=== PATIENT | female | born 1960 | race Caucasian/White ===

== ENCOUNTER 2019-08-17 12:12 | Inpatient (IN) ==
[2019-08-17 12:57] LABS: Basophils # (auto) 0.03 K/uL (0-0.2); Basophils % (auto) 0.4 %; Eosinophils # (auto) 0.17 K/uL (0-0.5); Eosinophils % (auto) 2.1 %; Hematocrit (blood only) 59.2 % (37-47); Hemoglobin 20.5 g/dL (12.0-16.0); Immature Granulocytes # (auto) 0.01 K/uL (0.00-0.02); Immature Granulocytes % (auto) 0.1 %; Lymphocytes # (auto) 2.18 K/uL (1.2-3.4); Lymphocytes % (auto) 26.7 %; Mean Corpuscular Hemoglobin 32.9 pg (25-34); Mean Platelet Volume 10.8 fL (7.4-10.4); Monocytes # (auto) 0.64 K/uL (0.11-0.59); Monocytes % (auto) 7.8 %; Neutrophils # (auto) 5.14 K/uL (1.4-6.5); Neutrophils % (auto) 62.9 %; Platelet Count 201 K/uL (130-400); RDW Coefficient of Variation 14.2 % (11.5-14.5); RDW Standard Deviation 49.2 fL (36.4-46.3); Red Blood Count 6.23 M/uL (4.2-5.4); White Blood Count 8.17 K/uL (4.8-10.8)
[2019-08-17] MEDS ORDERED: OPTIRAY 320 125ml IV PRN (12:57)
[2019-08-17 12:59] LABS: Mean Corpuscular Hgb Conc 34.6 g/dL (32-36)
--- NOTE | 2019-08-17 13:01 | CT Scan Report ---
CT head/brain wo con CLINICAL HISTORY: New stroke symptoms. RIGHT-SIDED WEAKNESS COMPARISON STUDY: MRI the brain dated 09/04/2015 TECHNIQUE: Axial CT of the brain is performed from the vertex to the skull base. IV contrast was not administered for this examination. A dose lowering technique was utilized adhering to the principles of ALARA. CT DOSE: 537.48 mGy.cm FINDINGS: No intra or extra-axial mass lesions are visualized. There is no CT evidence of acute cortical infarc tion. There is no evidence of midline shift. There is no acute hemorrhage. No calvarial fractures ar e visualized. There are old infarcts in the right caudate, anterior right thalamus, and right periventricular deep white matter. The right caudate and right anterior thalamic infarcts were not present in 2014 There is no evidence of pathologic ventricular dilatation. There is left maxillary sinus mucosal thickening. IMPRESSION: 1. Old infarcts involving the right caudate, right anterior thalamus, and right periventricular deep white matter. 2. No acute intracranial findings Electronically signed by: Devon Connolly M.D. 08/17/2019 12:59 PM
[2019-08-17 13:05] LABS: Alanine Aminotransferase 35 U/L (12-78); Albumin Level 3.9 gm/dl (3.4-5.0); Aspartate Aminotransferase 12 U/L (15-37); BUN Creatinine Ratio 13.6 (10-20); Blood Urea Nitrogen 9 mg/dl (7-18); Calcium 9.4 mg/dl (8.5-10.1); Carbon Dioxide 26 mmol/L (21-32); Chloride 105 mmol/L (98-107); Creatinine Clr Calc Pharmacy 86.7 ml/min; Est GFR (African American) 112.6; Est GFR (Non-African American) 97.2; Glucose 108 mg/dl (70-99); Magnesium 1.9 mg/dl (1.8-2.4); Sodium 138 mmol/L (136-145)
--- NOTE | 2019-08-17 13:08 | CT Scan Report ---
CT angio neck with con CLINICAL HISTORY: R sided weakness COMPARISON STUDY: MR angiography the neck performed August 2015 TECHNIQUE: CT angiography was performed from the aortic arch to the skull base. MIP imaging was perfo rmed. The patient was scanned in a dynamic helical fashion during intravenous administration of 119 c c of Optiray 320. A dose lowering technique was utilized adhering to the principles of ALARA. CT DOSE: 499.09 mGy.cm Technique: CT angiogram of the carotid and vertebral arteries was obtained using intravenous contrast and 3-D reconstruction. NASCET criteria was utilized. Findings: There is apical pulmonary emphysema. There is atheromatous plaque at the level of the right carotid bulb and proximal right internal carot id artery. There is a less than 25% stenosis. No hemodynamically significant stenosis is visualized. There is no dissection. There is no aneurysm. There are atheromatous changes present at the left carotid bulb and proximal internal carotid artery. There is a 40% proximal left internal carotid artery stenosis. There is a 50% diameter stenosis in the proximal left subclavian artery. There is no evidence of hemo dynamically significant vertebral artery stenosis. There is no evidence of vertebral artery dissectio n. IMPRESSION: Moderate bilateral atheromatous changes. No evidence of hemodynamically significant carotid stenosis. Electronically signed by: Devon Connolly M.D. 08/17/2019 1:06 PM
[2019-08-17 13:09] LABS: Albumin Globulin Ratio 1.1 (0.9-2); Alkaline Phosphatase 93 U/L (45-117); Bilirubin,Total 0.7 mg/dl (0.2-1); Globulin 3.6 gm/dl (2.5-4.0); Total Protein 7.5 gm/dl (6.4-8.2); Troponin I < 0.015 ng/ml (0-0.045)
--- NOTE | 2019-08-17 13:12 | CT Scan Report ---
CT angio head w con CLINICAL HISTORY: Right-sided weakness. Possible acute stroke. TECHNIQUE: CT angiography of the head was performed in a dynamic helical fashion during intravenous a dministration of 2019 cc of Optiray 320. MIP imaging was performed. A dose lowering technique was uti lized adhering to the principles of ALARA. CT DOSE: COMPARISON STUDY: August 2015 FINDINGS: There are no lesion suspicious for aneurysm. There are no major intracranial branch occlusi ons. The dural venous sinuses appear patent. There are old infarcts in the region the right caudate, right anterior thalamus, and right periventricular deep white matter IMPRESSION: No evidence of significant stenosis, focal branch occlusion, or aneurysm. Electronically signed by: Devon Connolly M.D. 08/17/2019 1:10 PM
--- NOTE | 2019-08-17 13:26 | XRay Report ---
XR chest 1V portable CLINICAL HISTORY: weakness COMPARISON STUDY: 09/04/2015 FINDINGS: The heart is normal in size. There is no lobar consolidation. There are no pleural effusion s. There is slight elevation of interstitium. Clinical correlation in regards to mild pulmonary vascu lar congestion is recommended[ IMPRESSION: Slight nonspecific elevation of the interstitium. Clinical correlation in regards to mild pulmonary vascular congestion is recommended. No evidence of lobar consolidation Electronically signed by: Devon Connolly M.D. 08/17/2019 1:25 PM
--- NOTE | 2019-08-17 13:35 | Emergency Department Note ---
History of Present Illness General Chief complaint: Leg Weakness, Bilateral Stated complaint: BILATERAL LEG WEAKNESS History of Present Illness Maximum Pain Intensity: 0 This patient is a 59-year-old female who presents emergency department with her family for evaluation of weakness that started this morning when she woke up at 10 AM. The patient and the patient's family think that she is more weak on the right side. The patient has a history of a CVA a few years ago, which left her with left-sided weakness. She does not take any anticoagulation. She denies any chest pain or shortness of breath. She denies any headache or changes in vision. She denies any back pain. The patient went to sleep last night around 2 AM. She was fine prior to falling asleep. Home Medications Home Medications Medication Instructions Recorded Confirmed Type No Known Home Medications 08/17/19 08/17/19 History Allergies Allergy/AdvReac Type Severity Reaction Status Date / Time Sulfa (Sulfonamide Allergy Intermediate HIVES Unverified 08/17/19 14:18 Antibiotics) Past Med/Surg History Medical History Alcohol dependence (Chronic) Stroke (Resolved) Tobacco abuse (Chronic) Surgical History Status post tubal ligation (Suspected) Social History Preferred Language: Bulgarian Communication Ability: Effective Visual Impairment: No Limitations Hearing Ability: Normal Material Requisitioner Required: No Beliefs That Will Affect Care: None marital status: Current Living Situation: Spouse current occupational status: unemployed Other Information That Helps Us Care for You: No Feels Safe at Home: Yes Safety Concerns: Feels Safe At This Time Smoking Status: Current every day smoker Tobacco Type: cigarettes ; Cigarettes Per Day: 20 ; Hx Alcohol Use: Yes Alcohol type: beer Hx Substance Use: No Review of Systems A total of 10 systems reviewed and were otherwise negative Physical Exam Vital Signs Vital Signs - 24 hr 08/17/19 12:12 08/17/19 12:35 08/17/19 13:06 Temperature 36.6 C Temperature Source Oral Pulse Rate 98 H 87 Pulse Rate [Apical] Pulse Rate from SpO2 Sensor 89 Pulse Rhythm Regular Pulse Strength Normal Respiratory Rate 16 16 Respiratory Effort / Characteristics Non-Labored Respiratory Depth Normal Respiratory Pattern Regular Blood Pressure 166/88 H 156/87 H Blood Pressure [Left Arm] Blood Pressure Mean 114 116 Blood Pressure Mean [Left Arm] Blood Pressure Position Sitting Pulse Oximetry 97 93 Oxygen Delivery Method Room Air Room Air Room Air Sepsis Recent Fever Within 48 Hours No Sepsis Action Taken by Nursing No Action Required 08/17/19 13:30 08/17/19 13:45 08/17/19 14:15 Temperature Temperature Source Pulse Rate 86 Pulse Rate [Apical] 84 88 Pulse Rate from SpO2 Sensor 84 Pulse Rhythm Pulse Strength Respiratory Rate 19 18 18 Respiratory Effort / Characteristics Non-Labored Respiratory Depth Normal Respiratory Pattern Blood Pressure 140/86 Blood Pressure [Left Arm] 140/86 122/98 Blood Pressure Mean 97 Blood Pressure Mean [Left Arm] 104 106 Blood Pressure Position Pulse Oximetry 95 94 Oxygen Delivery Method Room Air Room Air Room Air Sepsis Recent Fever Within 48 Hours Sepsis Action Taken by Nursing 08/17/19 15:30 Temperature Temperature Source Pulse Rate Pulse Rate [Apical] 80 Pulse Rate from SpO2 Sensor Pulse Rhythm Pulse Strength Respiratory Rate 18 Respiratory Effort / Characteristics Respiratory Depth Respiratory Pattern Blood Pressure Blood Pressure [Left Arm] 146/85 H Blood Pressure Mean Blood Pressure Mean [Left Arm] 105 Blood Pressure Position Pulse Oximetry 94 Oxygen Delivery Method Room Air Sepsis Recent Fever Within 48 Hours Sepsis Action Taken by Nursing Constitutional WD/WN, vitals as above Eyes EOM intact bilaterally ENMT external ear and nose normal, oropharynx normal (Oral mucosa slightly dry) Neck trachea midline Respiratory Slight wheezing noted bilaterally. Cardiovascular RRR, no murmur, no edema Gastrointestinal (Abdomen) normal bowel sounds, soft, nontender, no hepatosplenomegaly Musculoskeletal no cyanosis or clubbing, extremities motor strength 5/5 Skin no rashes, warm and dry Neurologic Alert and oriented x3. Right arm and right leg weakness noted. Cranial nerves appear to be grossly intact. No facial droop. Psychiatric Acting appropriately Course Patient was seen and examined A stroke alert was called. My attending physician saw and evaluated the patient. Vital signs including blood pressure were reviewed medications list was verified with patient Labs were obtained, and a saline lock was established Imaging was performed and reviewed. The case was discussed with Telest[facility], Dr. Almaguer The patient was ordered aspirin 324 mg p.o. I discussed the patient's findings with the patient and patient's family. They voiced understanding. The case was discussed with case management and subsequently the hospitalist service. They currently agreed to evaluate the patient for likely inpatient management. Consultations Consultation #1: Dr. HectorPsahuynrz-pzkm-sdbnlr/neuro Esperanza Consultation #2: [facility] [place] hospitalist service Administered Medications Atorvastatin Calcium (Lipitor) 40 mg PO QAM TRAN Stop: 09/16/19 17:04 Last Admin: 08/17/19 17:55 Dose: 40 mg Documented by: [id number] Enoxaparin Sodium (Lovenox) 40 mg SQ Q24H TRAN Stop: 09/16/19 17:04 Last Admin: 08/17/19 17:54 Dose: 40 mg Documented by: [id number] Nicotine (Nicoderm Cq) 14 mg TD QAM TRAN Stop: 09/16/19 17:14 Last Admin: 08/17/19 17:54 Dose: 14 mg Documented by: [id number] Discontinued Medications Aspirin (Aspirin) 324 mg PO NOW STA Stop: 08/17/19 14:28 Last Admin: 08/17/19 15:01 Dose: 324 mg Documented by: [id number] Ioversol (Optiray 320 125ml) 119 ml IV ONCE PRN PRN Reason: Interaction Checking Stop: 08/21/19 12:56 Last Admin: 08/17/19 12:58 Dose: 119 ml Documented by: [id number] Medical Decision Making Differential Diagnosis + acute myocardial infarction, + anemia, + dehydration, + ACS, + hypoglycemia, + intracerebral event, + toxicologic and + neurologic Medical Records Attestation: I reviewed the patient's medical records. Home Medications Current Medication List: was personally reviewed by me Laboratory Data Attestation: I reviewed the patient's lab results. Result diagrams: 08/17/19 12:31 08/17/19 12:31 Lab Results 08/17/19 08/17/19 08/17/19 Range/Units 12:31 12:31 12:31 WBC 8.17 (4.8-10.8) K/uL RBC 6.23 H (4.2-5.4) M/uL Hgb 20.5 H (12.0-16.0) g/dL Hct 59.2 H (37-47) % MCV 95.0 (80-100) fL MCH 32.9 (25-34) pg MCHC 34.6 (32-36) g/dL RDW Std Deviation 49.2 H (36.4-46.3) fL RDW Coeff of Lee 14.2 (11.5-14.5) % Plt Count 201 (130-400) K/uL MPV 10.8 H (7.4-10.4) fL Immature Gran % (Auto) 0.1 % Neut % (Auto) 62.9 % Lymph % (Auto) 26.7 % Liberty % (Auto) 7.8 % Eos % (Auto) 2.1 % Baso % (Auto) 0.4 % Immature Gran # (Auto) 0.01 (0.00-0.02) K/uL Neut # (Auto) 5.14 (1.4-6.5) K/uL Lymph # (Auto) 2.18 (1.2-3.4) K/uL Liberty # (Auto) 0.64 H (0.11-0.59) K/uL Eos # (Auto) 0.17 (0-0.5) K/uL Baso # (Auto) 0.03 (0-0.2) K/uL PT Cancelled INR Cancelled APTT Cancelled PTT Ratio Cancelled Sodium 138 (136-145) mmol/L Potassium 4.0 (3.5-5.1) mmol/L Chloride 105 (98-107) mmol/L Carbon Dioxide 26 (21-32) mmol/L Anion Gap 7.0 (3-11) BUN 9 (7-18) mg/dl Creatinine 0.65 (0.6-1.2) mg/dl Est Cr Clr Drug Dosing 86.7 ml/min Est GFR ( Amer) 112.6 Est GFR (Non-Af Amer) 97.2 BUN/Creatinine Ratio 13.6 (10-20) Glucose 108 H (70-99) mg/dl POC Glucose (70-99) Calcium 9.4 (8.5-10.1) mg/dl Magnesium 1.9 (1.8-2.4) mg/dl Total Bilirubin 0.7 (0.2-1) mg/dl AST 12 L (15-37) U/L ALT 35 (12-78) U/L Alkaline Phosphatase 93 (45-117) U/L Troponin I < 0.015 (0-0.045) ng/ml Total Protein 7.5 (6.4-8.2) gm/dl Albumin 3.9 (3.4-5.0) gm/dl Globulin 3.6 (2.5-4.0) gm/dl Albumin/Globulin Ratio 1.1 (0.9-2) Urine Color Urine Appearance (Clear) Urine pH (4.5-7.5) Ur Specific [place] (1.000-1.030) Urine Protein (Negative) Urine Glucose (UA) (Negative) Urine Ketones (Negative) Urine Blood (Negative) Urine Nitrite (Negative) Urine Bilirubin (Negative) Urine Urobilinogen (Negative) Ur Leukocyte Esterase (Negative) Urine WBC (Auto) (0-5) /hpf Urine RBC (Auto) (0-4) /hpf U Hyaline Cast (Auto) (0-5) /lpf U Epithel Cells (Auto) (0-5) /lpf Urine Bacteria (Auto) (Negative) Blood Type Antibody Screen 08/17/19 08/17/19 08/17/19 Range/Units 12:59 12:59 13:25 WBC (4.8-10.8) K/uL RBC (4.2-5.4) M/uL Hgb (12.0-16.0) g/dL Hct (37-47) % MCV (80-100) fL MCH (25-34) pg MCHC (32-36) g/dL RDW Std Deviation (36.4-46.3) fL RDW Coeff of Lee (11.5-14.5) % Plt Count (130-400) K/uL MPV (7.4-10.4) fL Immature Gran % (Auto) % Neut % (Auto) % Lymph % (Auto) % Liberty % (Auto) % Eos % (Auto) % Baso % (Auto) % Immature Gran # (Auto) (0.00-0.02) K/uL Neut # (Auto) (1.4-6.5) K/uL Lymph # (Auto) (1.2-3.4) K/uL Liberty # (Auto) (0.11-0.59) K/uL Eos # (Auto) (0-0.5) K/uL Baso # (Auto) (0-0.2) K/uL PT 10.7 INR 1.0 APTT 24.6 PTT Ratio 0.9 Sodium (136-145) mmol/L Potassium (3.5-5.1) mmol/L Chloride (98-107) mmol/L Carbon Dioxide (21-32) mmol/L Anion Gap (3-11) BUN (7-18) mg/dl Creatinine (0.6-1.2) mg/dl Est Cr Clr Drug Dosing ml/min Est GFR ( Amer) Est GFR (Non-Af Amer) BUN/Creatinine Ratio (10-20) Glucose (70-99) mg/dl POC Glucose 93 (70-99) Calcium (8.5-10.1) mg/dl Magnesium (1.8-2.4) mg/dl Total Bilirubin (0.2-1) mg/dl AST (15-37) U/L ALT (12-78) U/L Alkaline Phosphatase (45-117) U/L Troponin I (0-0.045) ng/ml Total Protein (6.4-8.2) gm/dl Albumin (3.4-5.0) gm/dl Globulin (2.5-4.0) gm/dl Albumin/Globulin Ratio (0.9-2) Urine Color Urine Appearance (Clear) Urine pH (4.5-7.5) Ur Specific [place] (1.000-1.030) Urine Protein (Negative) Urine Glucose (UA) (Negative) Urine Ketones (Negative) Urine Blood (Negative) Urine Nitrite (Negative) Urine Bilirubin (Negative) Urine Urobilinogen (Negative) Ur Leukocyte Esterase (Negative) Urine WBC (Auto) (0-5) /hpf Urine RBC (Auto) (0-4) /hpf U Hyaline Cast (Auto) (0-5) /lpf U Epithel Cells (Auto) (0-5) /lpf Urine Bacteria (Auto) (Negative) Blood Type A Positive Antibody Screen NEGATIVE 08/17/19 Range/Units 13:42 WBC (4.8-10.8) K/uL RBC (4.2-5.4) M/uL Hgb (12.0-16.0) g/dL Hct (37-47) % MCV (80-100) fL MCH (25-34) pg MCHC (32-36) g/dL RDW Std Deviation (36.4-46.3) fL RDW Coeff of Lee (11.5-14.5) % Plt Count (130-400) K/uL MPV (7.4-10.4) fL Immature Gran % (Auto) % Neut % (Auto) % Lymph % (Auto) % Liberty % (Auto) % Eos % (Auto) % Baso % (Auto) % Immature Gran # (Auto) (0.00-0.02) K/uL Neut # (Auto) (1.4-6.5) K/uL Lymph # (Auto) (1.2-3.4) K/uL Liberty # (Auto) (0.11-0.59) K/uL Eos # (Auto) (0-0.5) K/uL Baso # (Auto) (0-0.2) K/uL PT INR APTT PTT Ratio Sodium (136-145) mmol/L Potassium (3.5-5.1) mmol/L Chloride (98-107) mmol/L Carbon Dioxide (21-32) mmol/L Anion Gap (3-11) BUN (7-18) mg/dl Creatinine (0.6-1.2) mg/dl Est Cr Clr Drug Dosing ml/min Est GFR ( Amer) Est GFR (Non-Af Amer) BUN/Creatinine Ratio (10-20) Glucose (70-99) mg/dl POC Glucose (70-99) Calcium (8.5-10.1) mg/dl Magnesium (1.8-2.4) mg/dl Total Bilirubin (0.2-1) mg/dl AST (15-37) U/L ALT (12-78) U/L Alkaline Phosphatase (45-117) U/L Troponin I (0-0.045) ng/ml Total Protein (6.4-8.2) gm/dl Albumin (3.4-5.0) gm/dl Globulin (2.5-4.0) gm/dl Albumin/Globulin Ratio (0.9-2) Urine Color Yellow Urine Appearance Clear (Clear) Urine pH 5.0 (4.5-7.5) Ur Specific [place] 1.041 H (1.000-1.030) Urine Protein Negative (Negative) Urine Glucose (UA) Negative (Negative) Urine Ketones Negative (Negative) Urine Blood Negative (Negative) Urine Nitrite Positive A (Negative) Urine Bilirubin Negative (Negative) Urine Urobilinogen Negative (Negative) Ur Leukocyte Esterase Negative (Negative) Urine WBC (Auto) 1-5 (0-5) /hpf Urine RBC (Auto) 0-4 (0-4) /hpf U Hyaline Cast (Auto) 1-5 (0-5) /lpf U Epithel Cells (Auto) >30 H (0-5) /lpf Urine Bacteria (Auto) 3+ H (Negative) Blood Type Antibody Screen Imaging Data Attestation: I personally reviewed and interpreted this imaging study as follows: My Impression: Chest x-ray : Slight nonspecific elevation of the interstitium. Clinical correlation in regards to mild pulmonary vascular congestion is recommended. No evidence of lobar consolidation Electronically signed by: Devon Connolly M.D. 08/17/2019 1:25 PM Dictated: 08/17/19 1324 Transcribed: 08/17/19 1324 CTA neck IMPRESSION: Moderate bilateral atheromatous changes. No evidence of hemodynamically significant carotid stenosis. Electronically signed by: Devon Connolly M.D. 08/17/2019 1:06 PM Dictated: 08/17/19 1301 Transcribed: 08/17/[address] angio head : No evidence of significant stenosis, focal branch occlusion, or aneurysm. Electronically signed by: Devon Connolly M.D. 08/17/2019 1:10 PM Dictated: 08/17/19 1307 Transcribed: 08/17/[address] head without contrast IMPRESSION: 1. Old infarcts involving the right caudate, right anterior thalamus, and right periventricular deep white matter. 2. No acute intracranial findings Electronically signed by: Devon Connolly M.D. 08/17/2019 12:59 PM Dictated: 08/17/19 1253 Transcribed: 08/17/19 1253 ECG Data Attestation: I personally reviewed and interpreted this ECG as follows: Indication: weakness Rate (beats per minute): 96 Rhythm: normal sinus Additional Comments: No ischemic changes. No ectopy. Blood Pressure Blood Pressure Findings: Elevated blood pressure MDM Narrative This patient is a 59-year-old female who presents to the emergency department with right-sided weakness/stroke symptoms. She woke up with her symptoms this morning at 10 AM. She was last known to be asymptomatic at 2 AM in the morning. The patient did have appreciable right-sided weakness. Imaging currently does not show any signs of acute stroke. This is still a very likely suspicion. The patient was not a TPA candidate as discussed with neurology at [place]. The p atient will be admitted to the hospital for further work-up and treatment. Impression & Plan CVA (cerebral vascular accident) Discharge Plan Visit Data *Final* Discharge Date/Time: 08/17/19 16:20 Chief Complaint: Leg Weakness, Bilateral Stated Complaint: BILATERAL LEG WEAKNESS ED Provider: Michael Montoya ED Midlevel Provider: Delma Taylor Discharge Problem: CVA (cerebral vascular accident) Patient Disposition: Admitted As Inpatient Discharge Instructions Interventions: ED Discharge Assessment Last Done: 08/17/19 16:20
[2019-08-17 13:50] LABS: Partial Thromboplastin Ratio 0.9; Partial Thromboplastin Time 24.6 Seconds (21.0-31.0); Prothrombin Time 10.7 Seconds (9.0-12.0)
[2019-08-17 13:56] LABS: Appearance Urine Clear (Clear); Bacteria Urine Automated 3+ (Negative); Bilirubin Urine Negative (Negative); Blood Urine Negative (Negative); Color Urine Yellow; Epithelial Cell Urine Auto >30 /lpf (0-5); Glucose Urine UA Negative (Negative); Ketones Urine Negative (Negative); Leukocyte Esterase Urine Negative (Negative); Nitrite Urine Positive (Negative); Protein Urine Negative (Negative); RBC Urine Automated 0-4 /hpf (0-4); Specific Gravity Urine 1.041 (1.000-1.030); Urobilinogen Urine Negative (Negative)
[2019-08-17] MEDS ORDERED: ASPIRIN CHEW 324 MG PO STA (14:27)
[2019-08-17] MEDS ORDERED: POLYETHYLENE (MIRALAX) 17 GM PACK PO PRN (17:05)
[2019-08-17] MEDS ORDERED: ONDANSETRON INJ 2 MG/ML 2 ML VIAL IV PRN (17:05)
[2019-08-17] MEDS ORDERED: MAGNESIUM HYDROXIDE SUSP 30 ML UDC PO PRN (17:05)
[2019-08-17] MEDS ORDERED: ACETAMINOPHEN 325 MG TAB PO PRN (17:05)
[2019-08-17] MEDS ORDERED: ALUMINUM/MAGNESIUM SUSP 30 ML UDC PO PRN (17:05)
[2019-08-17] MEDS ORDERED: PHARMACIST DISCHARGE MED REC CONSULT PRN (17:05)
[2019-08-17] MEDS: NICOTINE 14 MG/24 HR PATCH TD SCH (17:54)
[2019-08-17] MEDS: ENOXAPARIN INJ 40 MG/0.4 ML SYR SQ SCH (17:54)
[2019-08-17] MEDS: ATORVASTATIN 40 MG TAB PO SCH (17:55)
--- NOTE | 2019-08-17 18:14 | History & Physical Report ---
Date of Service August 17, 2019 Assessment & Plan (1) Stroke: Admit to PCU on telemetry for observation for transient ischemic attack versus acute stroke. Start stroke protocol without TPA TPA contraindicated Case discussed per ER physician with Dr. Lyle neurologist at [facility]-stroke who recommended to start patient on aspirin 81 mg p.o. daily Given initial dose of 324 mg aspirin in the ER. MRI of the brain without contrast pending. Neurology consult PT OT speech therapy Lipid panel pending BNP pending TTE pending US venous bilateral pending to rule out possible DVT as a cause of possible embolic stroke. DVT prophylaxis Lovenox 40 mg subcu daily Full code Present on Admission?: Yes (2) Alcohol dependence: Started CIWA protocol for possible withdrawal symptoms. Given B12,folate, thiamine Pepcid for GI protection Present on Admission?: Yes (3) Tobacco abuse: Patient advised to stop smoking. Agreeable with nicotine patch Present on Admission?: Yes (4) Hypertension: Patient is not on any antihypertensive medication but she should be started on since her blood pressure was elevated in the ER. Present on Admission?: Yes (5) Hyperlipidemia: Lipid panel pending. Started atorvastatin 40 mg p.o. daily. Present on Admission?: Yes (6) Discharge planning issues: Patient will need close follow-up for high blood pressure, previous stroke and with neurologist. Present on Admission?: Yes History of Present Illness Chief Complaint: Transient right-sided weakness Primary Care Provider: Boo Corrales MD Patient is a 59 years old female with past medical history of CVA 3 years ago that resulted in right left-sided weakness, nicotine dependence presented with to the emergency room with a complaint of right-sided weakness that started this morning when she woke up at 10 AM. Patient smokes approximately 1 pack/day and also drinks alcohol on occasions or more than 1 drink per day. Patient went to sleep last night at 2 AM. At that time she was doing okay. Patient does not take any medicine and she is not on any kind of anticoagulation. Patient denies fever, chills, headache, blurry vision, chest pain, abdominal pain, frequency, urgency, syncope or near syncope. EKG reviewed; patient is in normal sinus rhythm. LVH. Labs are reviewed: CBC is 8.17, hemoglobin 20.5, hematocrit 59.2(patient is heavy smoker) platelets 201, PT 10.7, INR 1, APTT 24.6, sodium 138, potassium 4, chloride 105, carbon dioxide 26, BUN 9, creatinine 0.65, GFR 97.2, A1c pending, troponin,0.015, TSH pending, BNP pending, ALT 35 AST 12, urine positive for nitrates, negative leukocyte esterase many epithelial cells and bacteria. It is not a clean-catch. CT of the head: There is no lesions of suspicion for aneurysm. There is no major intracranial branch occlusions. The dural venous sinuses appear patent. There is old infarct in the region of the right caudate right anterior thalamus and right periventricular deep white matter. No evidence of significant stenosis, focal branch occlusion or aneurysm. CTA neck: Moderate bilateral atheromatous changes. No evidence of hemodynamically significant carotid stenosis. MRI brain without contrast pending. Chest x-ray shows slight nonspecific elevation of the interstitium. Mild pulmonary vascular congestion no evidence of lobar consolidation. Decision was made to admit patient for observation at PCU on telemetry and further evaluation for transient ischemic attack versus possibly acute stroke (pending MRI of the brain without contrast) and further evaluation and treatment. Allergies Allergy/AdvReac Type Severity Reaction Status Date / Time Sulfa (Sulfonamide Allergy Intermediate HIVES Unverified 08/17/19 14:18 Antibiotics) Home Medications Home Medications Medication Instructions Recorded Confirmed Type No Known Home Medications 08/17/19 08/17/19 History Past Med/Surg History Medical History Alcohol dependence (Chronic) Stroke (Resolved) Tobacco abuse (Chronic) Surgical History Status post tubal ligation (Suspected) Social History Preferred Language: Yi Communication Ability: Effective Visual Impairment: No Limitations Hearing Ability: Normal Splicer Apprentice Required: No Beliefs That Will Affect Care: None marital status: Current Living Situation: Spouse current occupational status: unemployed Other Information That Helps Us Care for You: No Feels Safe at Home: Yes Safety Concerns: Feels Safe At This Time Smoking Status: Current every day smoker Tobacco Type: cigarettes ; Cigarettes Per Day: 20 ; Hx Alcohol Use: Yes Alcohol type: beer Hx Substance Use: No Review of Systems Review of Systems: All systems reviewed & are unremarkable except as noted in HPI & below Physical Exam Constitutional: WD/WN, vitals as above Eyes: EOM intact bilaterally ENMT: external ear and nose normal, oropharynx normal (Oral mucosa slightly dry) Neck: trachea midline Cardiovascular: RRR, no murmur, no edema Gastrointestinal (Abdomen): normal bowel sounds, soft, nontender, no hepatosplenomegaly Musculoskeletal: no cyanosis or clubbing, extremities motor strength 5/5 Skin: no rashes, warm and dry Neurologic: patellar DTR's 2+ bilat, sensation intact and PERRL, EOMI, accommodation nl, no face palsy, no dysarthria CN's II-XI intact bilaterally and awake Cranial Nerves: PERRL, normal accommodation, tongue midline and symmetric palate elevation Patient did not show any weakness on the exam. Her left and right were totally equal. Psychiatric: A+Ox3, euthymic affect Lymphatic: no cervical or axillary lymphadenopathy Results & Data Vital Signs (Past 12 Hours) Vital Signs Temp Pulse Pulse Pulse Resp BP BP 08/17/19 17:23 83 08/17/19 16:45 36.5 C 81 16 156/79 H 08/17/19 16:20 76 79 18 142/78 H 151/89 H 08/17/19 15:30 80 18 146/85 H 08/17/19 14:15 88 18 122/98 08/17/19 13:45 84 18 140/86 08/17/19 13:30 86 19 140/86 08/17/19 13:06 87 16 156/87 H 08/17/19 12:12 36.6 C 98 H 16 166/88 H Pulse Ox 08/17/19 17:23 08/17/19 16:45 94 08/17/19 16:20 93 08/17/19 15:30 94 08/17/19 14:15 94 08/17/19 13:45 08/17/19 13:30 95 08/17/19 13:06 93 08/17/19 12:12 97 Code Status & VTE Plan Code Status Full code VTE Prophylaxis Plan VTE Prophylaxis will be ordered: Yes PG Care Time/CCT Total # of Minutes Spent Total Time Spent with Patient: Total time spent is greater than 50% in coordination of care (as documented) at patient's floor/unit and/or counseling patient:
[2019-08-18 00:59] LABS: Basophils # (auto) 0.04 K/uL (0-0.2); Basophils % (auto) 0.5 %; Eosinophils # (auto) 0.18 K/uL (0-0.5); Eosinophils % (auto) 2.2 %; Hematocrit (blood only) 56.6 % (37-47); Hemoglobin 19.7 g/dL (12.0-16.0); Immature Granulocytes # (auto) 0.01 K/uL (0.00-0.02); Immature Granulocytes % (auto) 0.1 %; Lymphocytes # (auto) 3.18 K/uL (1.2-3.4); Mean Corpuscular Hemoglobin 33.3 pg (25-34); Mean Corpuscular Volume 95.8 fL (80-100); Mean Platelet Volume 10.2 fL (7.4-10.4); Monocytes # (auto) 0.65 K/uL (0.11-0.59); Monocytes % (auto) 7.8 %; Neutrophils % (auto) 51.4 %; Platelet Count 210 K/uL (130-400); RDW Coefficient of Variation 14.1 % (11.5-14.5); RDW Standard Deviation 49.8 fL (36.4-46.3); Red Blood Count 5.91 M/uL (4.2-5.4); White Blood Count 8.36 K/uL (4.8-10.8)
[2019-08-18 01:18] LABS: Calcium 9.2 mg/dl (8.5-10.1); Creatinine Clr Calc Pharmacy 79.4 ml/min; Est GFR (African American) 108.1; Est GFR (Non-African American) 93.2; Potassium 3.8 mmol/L (3.5-5.1)
[2019-08-18 01:26] LABS: Mean Corpuscular Hgb Conc 34.8 g/dL (32-36)
[2019-08-18 02:19] LABS: Partial Thromboplastin Ratio 0.8; Partial Thromboplastin Time 22.9 Seconds (21.0-31.0); Prothrombin Time 10.5 Seconds (9.0-12.0)
[2019-08-18 06:11] LABS: Estimated Average Glucose 108 mg/dl; Hemoglobin A1C 5.4 % (4.5-5.6)
--- NOTE | 2019-08-18 07:01 | Magnetic Resonance Report ---
MR brain wo con HISTORY: 59 years-old Female TIA v stroke acute strokelike symptoms COMPARISON: CT head, CTA head and neck studies of same day, brain MRI 09/04/2015 TECHNIQUE: Multiplanar multisequence MRI of the brain was obtained without the use of IV contrast. FINDINGS: Pattern Stamper localizer images demonstrate no gross extracranial abnormality. There are multiple (at least 8) subcentimeter foci of restricted diffusion involving the left cerebral hemisphere measuring up to 7 mm involving the left frontal and parietal lobes at the level of the centrum semiovale with probable additional punctate focus involving the left occipital lobe on image 13 series 7. Foci demonstrate de creased to intermediate signal on ADC map. These are prominently seen within the anterior cerebral an d watershed distributions. The equivocal focus within the left occipital lobe is within the posterior cerebral distribution. No acute territorial infarct. Encephalomalacia and gliosis from remote infarct involving the right caudate nucleus, right thalamus and internal capsule extending into the matias radiata of the right frontal lobe. Slightly increased T1 signal within this distribution is suggestive of associated laminar necrosis. Subcentimeter remote lacunar infarction of the left basal ganglia is also noted. Study is mildly motion degraded. The mid line structures including the corpus callosum, brainstem, optic chiasm, pituitary and pineal glands a ppear unremarkable. No cerebellar tonsillar herniation. Degenerative changes are noted about the imag ed cervical spine. No acute intracranial hemorrhage, midline shift, abnormal extra-axial collection, hydrocephalus or intracranial mass. Mild degree of patchy T2/FLAIR hyperintensities in the white emely er suggest chronic microvascular ischemic disease. Major flow voids at the level of the skull base appear patent. Trace mastoid effusions. Mild mucosal thickening of the frontal, ethmoid and right maxillary sinuses with moderate mucosal thickening of th e left maxillary sinus. The skull, soft tissues and orbits are unremarkable. IMPRESSION: 1. Multiple scattered subcentimeter foci of restricted diffusion involving the left cerebral hemisphe re at the level of the centrum semiovale predominantly within the anterior cerebral and watershed dis tributions are compatible with acute or subacute infarctions. 2. Remote infarct of the right frontal lobe matias radiata and basal ganglia distributions as above. 3. Mild background scattered T2/FLAIR hyperintensities about the white matter suggest probable chroni c microvascular ischemic disease. The above report was generated using voice recognition software. It may contain grammatical, syntax o r spelling errors. Electronically signed by: Sarath Adams M.D. 08/18/2019 7:00 AM
[2019-08-18] MEDS: ATORVASTATIN 40 MG TAB PO SCH (07:27)
[2019-08-18] MEDS: NICOTINE 14 MG/24 HR PATCH TD SCH (07:27)
[2019-08-18] MEDS: ASPIRIN 81 MG ECTAB PO SCH (07:27)
[2019-08-18] MEDS: cefTRIAXone SODIUM 2,000 MG in DEXTROSE 5% 50 ML IV SCH (07:38)
[2019-08-18] MEDS: FOLIC ACID 1 MG in SYRINGE 9.8 ML IV SCH (10:06)
[2019-08-18] MEDS: THIAMINE HCL 200 MG in SODIUM CHLORIDE 0.9% 50 ML IV SCH ×2 (10:08→20:47)
[2019-08-18] MEDS: CEROVITE ADV FORMULA TAB PO SCH (10:08)
--- NOTE | 2019-08-18 12:05 | Neurology Consultation ---
Date of Consultation August 18, 2019 Assessment & Plan (1) CVA (cerebral vascular accident): Multifocal subcentimeter acute infarcts within the left cerebral hemisphere, predominantly left DANGELO watershed distribution presenting with right- sided weakness, especially the leg. Patient appears to be clinically improved this morning. There does not appear to be a hemodynamically significant vascular lesion on CT angiography of the head or neck although she does have moderate bilateral atheromatous changes. Ongoing tobacco use, in spite of her history of previous stroke, is a significant risk factor for this patient going forward. She has also not been taking a daily aspirin or statin as previously recommended. Patient will need additional counseling and support to assist with smoking cessation. Agree with daily low-dose aspirin and atorvastatin. Follow-up with results of echocardiogram. Consultations with PT/OT. No further immediate recommendations. History of Present Illness Reason for Consultation: Stroke Requesting Physician: Gretchen Buck MD Attending Physician: Ryan Alcala History of Present Illness The patient is a 59-year-old female with a chief complaint of right-sided weakness, especially the leg, that she noted upon awakening yesterday morning at around 10 AM. He had gone to bed the night prior at around 2 AM and had been feeling well at that time. She was noted to have some right-sided weakness during her assessment in the emergency department. A tele-stroke consultation with [facility] was obtained. However, due to the timing of her symptom onset, last known well the night prior, she was not considered an appropriate candidate for administration of TPA. Daily aspirin was started and she was admitted to the hospital for further evaluation and management. The patient continues to report a subtle feeling of weakness affecting the right side at this time. No associated difficulty with speech or language production or comprehension. Patient denies any associated vision loss, or headache. Past medical history notable for a right hemispheric stroke that occurred several years ago resulting in persistent mild left-sided weakness and mild to moderate cognitive difficulties that resulted in her qualifying for long-term disability. In spite of having a stroke several years ago, the patient is not taking any specific medications. She reports that she decided to stop taking her aspirin and cholesterol medication. She continues to smoke cigarettes as well, about a pack per day. Family history noncontributory Allergies Allergy/AdvReac Type Severity Reaction Status Date / Time Sulfa (Sulfonamide Allergy Intermediate HIVES Unverified 08/17/19 14:18 Antibiotics) Home Medications Home Medications Medication Instructions Recorded Confirmed Type No Known Home Medications 08/17/19 08/17/19 History Patient History Medical History Alcohol dependence (Chronic) Stroke (Resolved) Tobacco abuse (Chronic) Surgical History Status post tubal ligation (Suspected) Social History Preferred Language: Divehi Communication Ability: Effective Visual Impairment: No Limitations Hearing Ability: Normal Bee Tender Required: No Beliefs That Will Affect Care: None marital status: Current Living Situation: Spouse current occupational status: unemployed Other Information That Helps Us Care for You: No Feels Safe at Home: Yes Safety Concerns: Feels Safe At This Time Smoking Status: Current every day smoker Tobacco Type: cigarettes ; Cigarettes Per Day: 20 ; Hx Alcohol Use: Yes Alcohol type: beer Hx Substance Use: No Review of Systems Constitutional: no fever and no chills Eyes: no blind spots and no diplopia Ear, Nose, Mouth, Throat: no tinnitus and no hearing loss Respiratory: no cough and no dyspnea Cardiovascular: no chest pain and no palpitations Gastrointestinal: no nausea and no vomiting Genitourinary: no urinary incontinence Musculoskeletal: no myalgia Integumentary: no rash and no lesions Neurologic: as per Subjective / HPI; no syncope and no headache(s) Psychiatric: no depression and no anxiety Hematologic / Lymphatic: no easy bleeding and no easy bruising Physical Exam Physical Exam: The patient is a well-developed, well-nourished elderly female. She is alert and fully oriented. Recent and remote memory intact. Attention and concentration normal. Patient exhibits a normal spontaneous speech pattern as well as an age-appropriate fund of knowledge. She is able to name objects and repeat phrases. Visual bhandari full to confrontation. Visual acuity normal. Pupils equal round reactive to light and accommodation. Eye movements normal. There is no nystagmus, ptosis, or ophthalmoplegia. Facial sensation intact. There is flattening of the right nasolabial fold. Hearing intact. Palate elevates to midline. Shoulder shrug intact. Tongue protrudes to midline. Sensation intact to all modalities in all 4 limbs. The patient does not extinguish to double simultaneous stimulation. Deep tendon reflexes are intact and symmetrical for the arms and legs. Plantar responses equivocal bilaterally. There is mild dysmetria [id number] and [id number]-[id number] on the right. There is no dysmetria with [id number] or [id number] on the left. There is no dysdiadochokinesia. Ophthalmoscopic examination reveals normal-appearing optic disks and posterior segments. No papilledema or hemorrhages. Carotid pulses normal bilaterally, no bruits to auscultation. Gait and station normal. Patient exhibits normal muscle strength and tone for all 4 limbs. There is no pronator drift. There is no effects with arm roll. There is normal muscle tone for all 4 limbs. No atrophy. No abnormal movements observed. Results & Data Vital Signs (Past 12 Hours) Vital Signs Temp Pulse Resp BP Pulse Ox 08/18/19 08:09 36.4 C L 79 17 126/85 97 08/18/19 04:14 37.1 C 86 18 103/70 94 Laboratory Results WBC 8.36, hemoglobin 19.7, hematocrit 56.6, platelet count 210, sodium 137, pota ssium 3.8, BUN 14, creatinine 0.71, glucose 91, hemoglobin A1c 5.4, calcium 9.2, troponin less than 0.015, triglycerides 163, cholesterol 187, LDL 120, VLDL 33, HDL [address] of the head completed yesterday reveals old infarcts involving the right caudate, right anterior thalamus, and right periventricular deep white matter. No hemorrhage or acute process. I reviewed the images as well as the radiology interpretation of this test. A CT angiogram of the head is negative for stenosis, focal branch occlusion, or aneurysm. A CT angiogram of the neck reveals moderate bilateral atheromatous changes. No hemodynamically significant carotid stenosis. No stenosis within the vertebral vessels. There is a 50% stenosis in the proximal left subclavian artery. MRI of the brain reveals multiple scattered subcentimeter foci of restricted diffusion involving the left cerebral hemisphere at the level of the centrum semi-ovale predominantly within the anterior cerebral and watershed distributions compatible with acute or subacute infarcts. There are remote infarcts of the right frontal lobe, matias radiata, and basal ganglia. There is chronic microvascular ischemic disease as well. I reviewed the images as well as the radiology interpretation of this test. An electrocardiogram reveals a normal sinus rhythm, 96 bpm PG Care Time/CCT Total # of Minutes Spent Total Time Spent with Patient: Total time spent is greater than 50% in coordination of care (as documented) at patient's floor/unit and/or counseling patient:
[2019-08-18] MEDS: ENOXAPARIN INJ 40 MG/0.4 ML SYR SQ SCH (16:36)
--- NOTE | 2019-08-18 21:13 | Hospitalist Progress Note ---
Date of Service August 18, 2019 Assessment & Plan (1) Stroke: left frontal/parietal lobe strokes as seen on MRI brain. radiologist felt that the distribution appeared watershed. did patient have episode of hypotension in the midst of alcohol use? other etiology? thus far telemetry, echo, and angiography have not revealed source of embolus or other etiology. seen by neurology - asa, statin use both recommended. tobacco cessation strongly advised. patient also with significant polycythemia - did this play any role? consider 30-day event monitor after d/c to r/o PAF. await PT/OT evals. speech eval done - no Rx needed. (2) Alcohol dependence: Cont CIWA protocol but thus far no signs of withdrawal. Cont thiamine, folic acid, MVI supplementation. (3) Tobacco abuse: Patient counseled to stop smoking. Cont nicotine patch. (4) Hypertension: no prior h/o HTN. BPs were mildly elevated upon presentation likely due to the stroke itself as reflexive mechanism. BPs now improved. cont to monitor off any meds. (5) Hyperlipidemia: Cont atorvastatin 40 mg p.o. daily. LDL was 120 this am. Goal <70. 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 could this played a role in stroke process? stop smoking. cont asa. (7) UTI (urinary tract infection): 2nd GNR. remains on rocephin. change to oral abx tomorrow. plan 3 days of Rx. (8) DVT prophylaxis: lovenox updated at bedside await PT/OT evals if cleared for home can potentially d/c home tomorrow Subjective tele overnight - NSR, no a.fib patient resting comfortably during my visit at bedside both the patient and her report that her RLE weakness is much improved from admission in fact they had just returned from a walk in the hallway and the patient reports doing well has no significant right arm weakness swallow function and speech are wnl denies tremors or withdrawal symptoms hoping to d/c home soon Review of Systems Constitutional: no fever, no chills, no fatigue and no anorexia Respiratory: no chest congestion, no dyspnea, no dyspnea on exertion and no wheezing Cardiovascular: no chest pain Gastrointestinal: no abdominal pain Physical Exam Constitutional: + thin; no acute distress and no altered mental status ENMT: external ear and nose normal, oropharynx normal Respiratory: Auscultation: + wheezes (occasional, mild) Cardiovascular: Rate/Rhythm: regular rate and regular rhythm Heart Sounds: normal S1 and normal S2; no murmur Vessels: posterior tibial pulses present and dorsalis pedis pulses present; no JVD Extremities: no edema Gastrointestinal (Abdomen): normal bowel sounds, soft, nontender, no hepatosplenomegaly Skin: jaylon complexion; mild palmar erythema Neurologic: + focal motor deficit (RLE - 4-5/5 strength; RUE, left leg/arm - 5/5 strength; no facial droop) Speech / Cognition: normal speech, no expressive aphasia and no receptive aphasia Psychiatric: A+Ox3, euthymic affect Results & Data Vital Signs (Past 12 Hours) Vital Signs Temp Pulse Resp BP Pulse Ox 08/18/19 19:12 36.7 C 83 20 125/68 90 08/18/19 15:13 36.6 C 78 20 136/78 91 08/18/19 11:59 37.1 C 75 17 135/77 92 Laboratory Results Laboratory Results - last 24 hr 08/17/19 08/18/19 08/18/19 17:20 00:48 00:48 WBC 8.36 RBC 5.91 H Hgb 19.7 H Hct 56.6 H MCV 95.8 MCH 33.3 MCHC 34.8 RDW Std Deviation 49.8 H RDW Coeff of Lee 14.1 Plt Count 210 MPV 10.2 Immature Gran % (Auto) 0.1 Neut % (Auto) 51.4 Lymph % (Auto) 38.0 Mcmullen % (Auto) 7.8 Eos % (Auto) 2.2 Baso % (Auto) 0.5 Immature Gran # (Auto) 0.01 Neut # (Auto) 4.30 Lymph # (Auto) 3.18 Mcmullen # (Auto) 0.65 H Eos # (Auto) 0.18 Baso # (Auto) 0.04 PT INR APTT PTT Ratio Sodium Potassium Chloride Carbon Dioxide Anion Gap BUN Creatinine Est Cr Clr Drug Dosing Est GFR ( Amer) Est GFR (Non-Af Amer) BUN/Creatinine Ratio Glucose Estimat Average Glucose 108 Hemoglobin A1c 5.4 Calcium Troponin I < 0.015 Triglycerides Cholesterol LDL Cholesterol, Calc VLDL Cholesterol, Calc HDL Cholesterol Cholesterol/HDL Ratio 12/11/0508/18/19 08/18/19 00:48 00:48 01:53 WBC RBC Hgb Hct MCV MCH MCHC RDW Std Deviation RDW Coeff of Lee Plt Count MPV Immature Gran % (Auto) Neut % (Auto) Lymph % (Auto) Mcmullen % (Auto) Eos % (Auto) Baso % (Auto) Immature Gran # (Auto) Neut # (Auto) Lymph # (Auto) Mcmullen # (Auto) Eos # (Auto) Baso # (Auto) PT Cancelled 10.5 INR Cancelled 1.0 APTT Cancelled 22.9 PTT Ratio Cancelled 0.8 Sodium 137 Potassium 3.8 Chloride 108 H Carbon Dioxide 23 Anion Gap 6.0 BUN 14 D Creatinine 0.71 Est Cr Clr Drug Dosing 79.4 Est GFR ( Amer) 108.1 Est GFR (Non-Af Amer) 93.2 BUN/Creatinine Ratio 20.0 Glucose 91 Estimat Average Glucose Hemoglobin A1c Calcium 9.2 Troponin I Triglycerides 163 H Cholesterol 187 LDL Cholesterol, Calc 120 VLDL Cholesterol, Calc 33 HDL Cholesterol 34 Cholesterol/HDL Ratio 6 PG Care Time/CCT Total # of Minutes Spent Total Time Spent with Patient: Total time spent is greater than 50% in coordination of care (as documented) at patient's floor/unit and/or counseling patient: (1) Alcohol dependence Substance use status: uncomplicated Qualified Code(s): F10.20 - Alcohol dependence, uncomplicated (2) Hyperlipidemia Hyperlipidemia type: mixed hyperlipidemia Qualified Code(s): E78.2 - Mixed hyperlipidemia (3) Hypertension Hypertension type: essential hypertension Qualified Code(s): I10 - Essential (primary) hypertension (4) Stroke CVA mechanism: unspecified Qualified Code(s): I63.9 - Cerebral infarction, unspecified (5) UTI (urinary tract infection) Urinary tract infection type: acute cystitis Hematuria presence: without hematuria Qualified Code(s): N30.00 - Acute cystitis without hematuria
[2019-08-19 05:44] LABS: Basophils # (auto) 0.02 K/uL (0-0.2); Basophils % (auto) 0.3 %; Eosinophils # (auto) 0.16 K/uL (0-0.5); Eosinophils % (auto) 2.3 %; Hematocrit (blood only) 55.6 % (37-47); Immature Granulocytes # (auto) 0.01 K/uL (0.00-0.02); Immature Granulocytes % (auto) 0.1 %; Lymphocytes # (auto) 2.26 K/uL (1.2-3.4); Lymphocytes % (auto) 33.1 %; Mean Corpuscular Hemoglobin 32.3 pg (25-34); Mean Corpuscular Volume 94.6 fL (80-100); Mean Platelet Volume 10.6 fL (7.4-10.4); Monocytes # (auto) 0.75 K/uL (0.11-0.59); Neutrophils # (auto) 3.63 K/uL (1.4-6.5); Neutrophils % (auto) 53.2 %; Platelet Count 183 K/uL (130-400); RDW Coefficient of Variation 13.9 % (11.5-14.5); RDW Standard Deviation 47.9 fL (36.4-46.3); Red Blood Count 5.88 M/uL (4.2-5.4); White Blood Count 6.83 K/uL (4.8-10.8)
[2019-08-19 06:08] LABS: Mean Corpuscular Hgb Conc 34.2 g/dL (32-36)
[2019-08-19 06:14] LABS: BUN Creatinine Ratio 26.7 (10-20); Calcium 9.1 mg/dl (8.5-10.1); Creatinine Clr Calc Pharmacy 110.6 ml/min; Est GFR (Non-African American) 105.3; Potassium 3.8 mmol/L (3.5-5.1)
[2019-08-19] MEDS: CEROVITE ADV FORMULA TAB PO SCH (08:33)
[2019-08-19] MEDS: ASPIRIN 81 MG ECTAB PO SCH (08:33)
[2019-08-19] MEDS: ATORVASTATIN 40 MG TAB PO SCH (08:33)
[2019-08-19] MEDS: NICOTINE 14 MG/24 HR PATCH TD SCH (08:34)
[2019-08-19] MEDS: FOLIC ACID 1 MG in SYRINGE 9.8 ML IV SCH (08:35)
[2019-08-19] MEDS: cefTRIAXone SODIUM 2,000 MG in DEXTROSE 5% 50 ML IV SCH (08:43)
[2019-08-19] MEDS: THIAMINE HCL 200 MG in SODIUM CHLORIDE 0.9% 50 ML IV SCH (08:43)
[2019-08-19] MEDS ORDERED: STROKE PATIENT DISCHARGE STA (10:08)
--- NOTE | 2019-08-19 10:20 | Discharge Summary ---
Date of Service August 19, 2019 Admission HPI Per Admitting Provider Patient is a 59 years old female with past medical history of CVA 3 years ago that resulted in right left-sided weakness, nicotine dependence presented with to the emergency room with a complaint of right-sided weakness that started this morning when she woke up at 10 AM. Patient smokes approximately 1 pack/day and also drinks alcohol on occasions or more than 1 drink per day. Patient went to sleep last night at 2 AM. At that time she was doing okay. Patient does not take any medicine and she is not on any kind of anticoagulation. Patient denies fever, chills, headache, blurry vision, chest pain, abdominal pain, frequency, urgency, syncope or near syncope. EKG reviewed; patient is in normal sinus rhythm. LVH. Labs are reviewed: CBC is 8.17, hemoglobin 20.5, hematocrit 59.2(patient is heavy smoker) platelets 201, PT 10.7, INR 1, APTT 24.6, sodium 138, potassium 4, chloride 105, carbon dioxide 26, BUN 9, creatinine 0.65, GFR 97.2, A1c pending, troponin,0.015, TSH pending, BNP pending, ALT 35 AST 12, urine positive for nitrates, negative leukocyte esterase many epithelial cells and bacteria. It is not a clean-catch. CT of the head: There is no lesions of suspicion for aneurysm. There is no major intracranial branch occlusions. The dural venous sinuses appear patent. There is old infarct in the region of the right caudate right anterior thalamus and right periventricular deep white mat ter. No evidence of significant stenosis, focal branch occlusion or aneurysm. CTA neck: Moderate bilateral atheromatous changes. No evidence of hemodynamically significant carotid stenosis. MRI brain without contrast pending. Chest x-ray shows slight nonspecific elevation of the interstitium. Mild pulmonary vascular congestion no evidence of lobar consolidation. Decision was made to admit patient for observation at PCU on telemetry and further evaluation for transient ischemic attack versus possibly acute stroke (pending MRI of the brain without contrast) and further evaluation and treatment. Principal Diagnosis left frontal/parietal lobe strokes Discharge Exam Constitutional + thin; no acute distress and no altered mental status ENMT external ear and nose normal, oropharynx normal Respiratory Auscultation: + wheezes (occasional, mild) Cardiovascular Rate/Rhythm: regular rate and regular rhythm Heart Sounds: normal S1 and normal S2; no murmur Vessels: posterior tibial pulses present and dorsalis pedis pulses present; no JVD Extremities: no edema Gastrointestinal (Abdomen) normal bowel sounds, soft, nontender, no hepatosplenomegaly Skin jaylon complexion Neurologic + focal motor deficit (RLE - 4-5/5 strength; RUE, left leg/arm - 5/5 strength; no facial droop) Speech / Cognition: normal speech, no expressive aphasia and no receptive aphasia Psychiatric A+Ox3, euthymic affect Discharge Data Allergies Allergy/AdvReac Type Severity Reaction Status Date / Time Sulfa (Sulfonamide Allergy Intermediate HIVES Unverified 08/17/19 14:18 Antibiotics) Consultations [facility] Neurology - Beto Bauer MD PT, OT, Speech therapy Ordered Studies 1. CT head 2. CTA head/neck - head wnl; no stenosis, aneurysm, etc. Neck - b/l plaque in carotid arteries but no significant stenosis. 3. MRI brain - IMPRESSION: 1. Multiple scattered subcentimeter foci of restricted diffusion involving the left cerebral hemisphere at the level of the centrum semiovale predominantly within the anterior cerebral and watershed distributions are compatible with acute or subacute infarctions. 2. Remote infarct of the right frontal lobe matias radiata and basal ganglia distributions as above. 3. Mild background scattered T2/FLAIR hyperintensities about the white matter suggest probable chronic microvascular ischemic disease. 4. echocardiogram - * EF 55-60% * no interatrial shunt on bubble study * no thrombus * normal valve function Hospital Course (1) Stroke: left frontal/parietal lobe strokes as seen on MRI brain. radiologist felt that the distribution appeared watershed. did patient have episode of hypotension in the midst of alcohol use? other etiology? telemetry, echo, and angiography did not reveal source of embolus or other etiology. seen by neurology - asa 81mg daily along with statin both recommended. tobacco cessation strongly advised. patient also with significant polycythemia - did this play any role? A 30-day event monitor will be set up for after d/c to r/o PAF. Seen by PT/OT/speech therapy - cleared for return home. Her main deficit at time of discharge was mild right arm weakness. (2) Alcohol dependence: no signs of withdrawal during the stay. Will complete a 30-day prescription of thiamine. MVI supplementation also recommended. counseled to abstain from etoh if possible. (3) Tobacco abuse: Patient counseled to stop smoking. (4) Hypertension: no prior h/o HTN. BPs were mildly elevated upon presentation likely due to the stroke itself as reflexive mechanism. BPs improved without intervention. continue to monitor off any meds. (5) Hyperlipidemia: Started on atorvastatin 40 mg p.o. daily. LDL was 120 during this stay. Goal <70. 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 could this have played a role in stroke process? stop smoking. cont asa for prophylaxis. advised follow-up with hematology for his. discharge hemoglobin was 19. (7) UTI (urinary tract infection): 2nd to e.coli. received rocephin while hospitalized. will complete a few more days of oral keflex post-discharge. Total Time Total Time Spent Total Time Spent (In Minutes): 40 Total Time Includes: Examination of the Patient, Discharge Planning and Medication Reconciliation Discharge Plan Discharge Items Patient Disposition: Home - Self-Care Reason For Visit: CONCERN FOR STROKE Discharge Diagnosis: 1. LEFT-SIDED STROKE RESULTING IN RIGHT-SIDED WEAKNESS - MAINLY THE RIGHT LEG. 2. POLYCYTHEMIA (ELEVATED HEMOGLOBIN LEVEL IN THE BLOOD) - FOLLOW-UP WITH HEMATOLOGY RECOMMENDED. 3. URINARY TRACT INFECTION. Activity: Resume your previous activity Lifting: Gradually increase as tolerated Bathing: No limitations Bathing Comment: RECOMMEND HAVING YOUR HELP FOR 1-2 DAYS Sexual Activity: After one week Exercise/Sports: Gradually increase as tolerated Driving/Machine Use: Resume 3 days after discharge Non-emergency contact: Primary Care Provider and Oncologist Call non-emergency contact if: you have any medication questions, your symptoms worsen and you have a fever Follow-up/Referrals: [facility] Hematology [Other] (Please, follow up with Dr. Sales or Dr. Serrano at The [facility] Hematology Office. *A nurse will contact you with the appointment information. The office is [facility] at the rear [facility] [place] Park BEHIND the hospital in [address] and enter via [facility]. If you have any questions, call the office directly at [phone].) Boo Corrales III, MD [Primary Care Provider] - 08/25/19 4:00 pm (Please, follow up at Dr. Corrales's office with his associate, Radha Lanza, on SundayAugust 25 at 4:00 pm. *If you need to change this appointment, call the office at [phone].) Diet: Heart Healthy Addtl Attending Provider Instructions: You were admitted for right-sided weakness. There was immediate concern for a stroke. MRI of the brain ultimately confirmed the presence of strokes in the left-side of the brain causing your right-sided weakness. The exact cause of the stroke was uncertain. It is possible that the high hemoglobin count (polycythemia) increased your risk of stroke. Perhaps a small blood clot traveled from somewhere in the body, to the brain, and caused the stroke. Alternatively perhaps you became dehydrated and you had poor blood flow to the brain causing the stroke. Again the exact cause is not known. You were seen by PT/OT and cleared for home. You were seen by neurology who recommended a baby aspirin daily to help prevent a future stroke as well as cholesterol medication. We have also recommended that you speak with your family doctor about ways to help you quit smoking and drinking. Recommendations: 1. take baby aspirin 81mg daily. You can purchase this [id number]. This is to prevent future stroke. This is also often recommended when your red blood cell count (hemoglobin) is too high. 2. take cholesterol medication - atorvastatin (lipitor) 40mg once daily every day. Script sent to [facility]. 3. take thiamine 200mg twice daily for 30 days then stop. This is a vitamin essential for our nervous system. 4. take a multivitamin EVERY DAY indefinitely. 5. take cephalexin 500mg twice daily for 3 days starting 08/20/19. This is your antibiotic for urinary infection. 6. see your family doctor within 1 week. 7. see the blood specialist (rehabilitation supervisor) at the [facility] at [facility] for your elevated red blood cell count. 8. please make every effort to cut back or quit tobacco use. 9. please make every effort to cut back or quit alcohol use. 10. consider OUTPATIENT physical therapy for your right leg weakness. [facility] offers a stroke program. Consider outpatient therapy there or at another location. Stroke instructions: Risk Factors for Stroke: You can reduce your chances of stroke by working with your medical provider to adopt a healthy lifestyle. Some specific ways to lower your chance of stroke are: * If you are a smoker, now is the time to stop smoking cigarettes * If you are diabetic, improve the control of your blood sugars * Avoid excessive amounts of alcohol * Control high blood pressure * Lose weight if you are overweight * Be sure to lead an active lifestyle * Eat a healthy diet low in salt, cholesterol and fat You should know about other risk factors for stroke that you are unable to control. These include: * Age 55 years or older * Male gender * Certain racial groups: , or / * Family History of Stroke, Mini stroke or Heart Attack * Sickle Cell Disease Who to Call and When: Medical Emergencies: Call 911 immediately if you experience any of the following warning signs and symptoms of Stroke: * Sudden numbness or weakness of the face, arm or leg, especially on one side of the body * Sudden confusion, trouble speaking or understanding * Sudden trouble seeing in one or both eyes * Sudden trouble walking, dizziness, loss of balance or coordination * Sudden severe headache with no cause Do not delay calling 911 if you experience any warning signs or symptoms of a stroke. Delay in seeking medical attention may affect what treatments can be given to you. . Pending Studies at Discharge: No Stand-Alone Forms: Medications to Prevent Stroke, My [facility], Smoking Cessation Medications and DC Order Prescriptions: New atorvastatin 40 mg Tablet 40 mg PO QAM Qty: 30 RF: 5 aspirin [Ecotrin Low Strength] 81 mg Tablet,Delayed Release (Dr/Ec) 81 mg PO QAM Qty: 90 RF: 3 Certavite-Antioxidant 18-400 mg-mcg Tablet 1 tab PO QAM Qty: 90 RF: 3 thiamine HCl (vitamin B1) 100 mg tablet 200 mg PO BID 30 Days Qty: 120 RF: 0 No Action No Known Home Medications RF: 0 Discharge Orders: Discharge Order (Routine); Ordered 08/19/19 Ordered By: Ryan Wright/Other Patient Handouts: Stroke Dc, ED Smoking Cessation Admission Data Admit Date/Time: 08/18/19 11:48 Attending Provider: Ryan Alcala Admit Provider: Gretchen Buck Primary Care Provider: Boo Corrales III Other Providers: Asia Garcia ; Gretchen Buck Other Interventions: Discharge Summary Assessment (RN) Last Done: 08/19/19 10:48 DC Date/Time DO NOT enter until pt leaves facility: 08/19/19 11:00
--- NOTE | 2019-08-19 10:56 | Pharmacy Report ---
Pharmacist Stroke Counseling - Date of Service August 19, 2019 - Scope: Pharmacy has been consulted to provide medication discharge counseling for this patient admitted with ischemic stroke as per the Pharmacist Discharge Counseling for Stroke Patients Protocol. - Medications on Discharge: Home Medications Medication Instructions Recorded Confirmed No Known Home Medications 08/17/19 08/17/19 New Rx's Medication Instructions Recorded aspirin [Ecotrin Low Strength] 81 mg PO QAM #90 tab 08/19/19 atorvastatin 40 mg PO QAM #30 tab 08/19/19 cephalexin [Keflex] 500 mg PO BID 3 Days #6 cap 08/19/19 euqpegqcgzgs-ysce-cirgu acid 1 tab PO QAM #90 tab 08/19/19 [Certavite-Antioxidant] thiamine HCl (vitamin B1) 200 mg PO BID 30 Days #120 tab 08/19/19 - Action: The above medications, specifically ones for stroke treatment/prophylaxis, have been reviewed in detail with the patient and/or patient sales and service representative(s) prior to discharge. This includes indication, common adverse reactions, drug interactions, and medication administration. Medication counseling has been employed using the teach-back method to ensure understanding. - Outcome: The patient and/or patient sales and service representative(s) have demonstrated understanding of the medications. Please note, they are aware that the pharmacist will call them within 72 hours post-discharge to confirm that the appropriate medications are being taken and answer any further medication related questions the patient might have at that time. Contact information Individual to be contacted: Patient (Leisa) Phone number: [phone] Best time to call: Anytime after 10 AM (may need to leave a message - patient doesn't answer calls from numbers that she doesn't recognize) Additional comments: Patient and patient's were counseled on the above medications. Reiterated the importance of adherence to these medications, especially in light of previous stroke and nonadherence to medications. Explained that the aspirin and atorvastatin are very important to prevent another stroke, but they won't necessarily make her feel any better. Explained proper storage of medications (avoid bathroom and choose a place that you will remember to take them as prescribed). [facility] red pillbox provided to patient. Explained that she is also to finish her course of antibiotics for treatment of UTI - she has 6 more doses and she must finish the entire course. Thank you for allowing pharmacy to be involved in the care of this patient. Please call [phone] or [phone] with any additional questions
== END 2019-08-19 11:00 | disposition home or self-care (01) | DRG 65 ==
LOC: 2S 12:12 → ED 12:12 → SUATTDRO 15:55 → 2S 16:20

== ENCOUNTER 2023-01-15 16:11 | Inpatient (IN) ==
--- NOTE | 2023-01-15 16:20 | ED Triage Note ---
Date of Service January 15, 2023 History of Present Illness This patient was briefly evaluated while in triage. An abbreviated physical exam was performed. This patient is a 62-year-old Female who presents to the ED for evaluation of TIA symptoms. Feels like her left hand is tingling and the right side of her face feels like her vision is blurry. Also having trouble walking per her son and seems to be off balance. Having some trouble talking as well. Symptoms started 1 hr ago. History of previous strokes. Not currently on blood thinners per patient. Physical Exam GENERAL: Non-toxic and in no acute distress. HEENT: Pupils equal. No obvious scleral icterus. No obvious facial droop. HEART: Regular rate and rhythm. LUNGS: Clear to auscultation. No accessory muscle use. ABDOMEN: Soft, nontender. NEURO: Alert and oriented, but she did have some difficulty answering questions at times. MUSCULOSKELETAL: The patient had decreased strength in her left upper extremity. She also stated that the left upper extremity sensation felt different than the right. Stroke Alert was called and the patient was taken to A1 after CT scan. Initial orders for labs and / or imaging were placed. Please see further documentation for the full ED course. MDM / Impression Impression Impression: Stroke-like symptoms, Tobacco abuse, Polycythemia, Cerebrovascular disease
--- NOTE | 2023-01-15 16:43 | CT Scan Report ---
CT head/brain wo con CLINICAL HISTORY: 62 years-old Female with Neuro deficit, acute, stroke suspected. Acute shocklike s ymptoms TECHNIQUE: Multiple axial CT images of the head were obtained without contrast. A dose lowering tech nique was utilized adhering to the principles of ALARA. CT DOSE: 537.48 mGy.cm COMPARISON: None. FINDINGS: No acute intracranial hemorrhage, midline shift, intracranial mass, hydrocephalus, territorial ischem ia or abnormal extra-axial collection. Involutional changes with chronic microvascular disease. Chron ic right frontal lobe infarct with encephalomalacia. Chronic right flank infarct. There are a few ill -defined hypodensities noted within the left frontal lobe centrum semiovale measuring up to 9 mm. The calvarium is intact. The paranasal sinuses, mastoid air cells, and middle ear cavities are clear . IMPRESSION: 1. No acute intracranial hemorrhage, midline shift or acute territorial infarct. 2. Involutional changes with chronic microvascular ischemic disease. 3. Ill-defined subcentimeter hypodense foci within the left frontal lobe centrum semiovale ovale are new from 04/11/2021 suggestive of age-indeterminate small infarcts. 4. Chronic infarcts as above. ACT 112: Negative or not required by law. The above report was generated using voice recognition software. It may contain grammatical, syntax o r spelling errors. Electronically signed by: Frank Adams M.D. 01/15/2023 4:42 PM
[2023-01-15] MEDS ORDERED: STAT IV STA (16:46)
[2023-01-15] MEDS ORDERED: SODIUM CHLORIDE 0.9% 10ML FLUSH IV STA (16:46)
[2023-01-15] MEDS ORDERED: LABETALOL HCL IV 5 MG/ML 20ML IV STA (16:53)
--- NOTE | 2023-01-15 16:54 | CT Scan Report ---
CT angio neck with con, CT angio head w con CLINICAL HISTORY: 62 years-old Female with cva. Acute stroke like symptoms COMPARISON STUDY: Head CT of same day TECHNIQUE: Following the IV administration of 116 mL of Optiray, CT angiogram of the head and neck wa s performed from the aortic arch to the skull apex. Images are reviewed in the axial, sagittal, and c oronal planes. 3-D MIPS images are created and assessed. IV contrast was administered without complic ation. All measurements were calculated based on NASCET criteria. A dose lowering technique was util ized adhering to the principles of ALARA. CT DOSE: 336.86 mGy.cm FINDINGS: 60% stenosis of the proximal left subclavian artery. Innominate and subclavian arteries are otherwise patent. Patent common carotid arteries. Moderate to severe atherosclerotic plaque of the internal ca rotid arteries. There is mild less than 50% stenosis of the proximal cervical segment right ICA. Ther e is high-grade greater than 70% stenosis of the proximal cervical segment left ICA on image 161 seri es 4. The anterior and middle cerebral arteries appear patent. Diminutive left A1 segment is likely d evelopmental. Moderate focal stenosis of the right A2 segment on image 152. Dominant left vertebral a rtery demonstrates 50% of the proximal V1 segment on image 55 series 4. Years of high-grade stenosis greater than 70% are noted within the proximal V1 segment of the right vertebral artery. Additional h igh-grade stenosis within the distal V2 segment of the right vertebral artery at the level of C3. Bas ilar artery is patent. origin of the right posterior cerebral artery. 5 mm focus of high grade stenosis of the T1 segment right posterior cerebral artery in image 103. Mild luminal narrowing noted throughout the left posterior cerebral artery. The cerebral venous sinuses are patent. No abnormal i ntracranial enhancement identified. Ill-defined subsegmental hypodensities noted left frontal lobe centrum semiovale. Pulmonary emphysema . No pneumothorax. Degenerative changes of the cervical spine. IMPRESSION: 1. Atherosclerotic plaque of the left greater than right carotid bulbs with less than 50% stenosis of the right ICA and high-grade stenosis of the proximal cervical segment left ICA. 2. Multifocal high-grade stenoses throughout the right vertebral artery with focal high-grade stenosi s of the right posterior cerebral artery. 3. 60% stenosis of the proximal left subclavian artery. ACT 112: Negative or not required by law. The above report was generated using voice recognition software. It may contain grammatical, syntax o r spelling errors. Electronically signed by: Frank Adams M.D. 01/15/2023 4:53 PM
[2023-01-15] MEDS ORDERED: LABETALOL HCL IV 5 MG/ML 20ML IV ONE (16:55)
[2023-01-15] MEDS ORDERED: TENECTEPLASE IV ONE (16:57)
[2023-01-15] MEDS ORDERED: No Aspirin within 24hrs of THROMBOLYTIC-Stroke PO SCH (17:00)
--- NOTE | 2023-01-15 17:02 | Emergency Department Note ---
Impression & Plan Stroke-like symptoms, Tobacco abuse, Polycythemia, Cerebrovascular disease ED Provider Note NAME: DOROTHY ROSA AGE: 62 SEX: F : 1960 ARRIVES VIA: Walk-In INFORMANT: Patient, the patient's family members ED PROVIDER(S): Dylan Merritt DO CHIEF COMPLAINT: Strokelike symptoms HPI: The patient is a 62-year-old female who presented to the emergency department for an evaluation of strokelike symptoms. She presented through triage. She was made a stroke alert by triage. I evaluated the patient in CT. The patient states that she was at work today and approximately 3 PM she started having problems with her right eye. She noticed decreased vision and blurry vision in her right eye but then also noticed she was having trouble ambulating and numbness and difficulty using her left arm. She does have a history of a stroke in the past. She takes no blood thinners including no antiplatelet medications. She denies having any fever. She denies having any headache or trauma. She denies having any recent drugs or alcohol. The patient's daughter brought her to the emergency department immediately. She does provide some of the history as well. ROS: See above HPI for pertinent positives & negatives. A total of 10 systems reviewed and were otherwise negative. PAST MEDICAL HISTORY: See Below PAST SURGICAL HISTORY: See Below FAMILY HISTORY: See Below SOCIAL HISTORY: See Below HOME MEDICATIONS: See Below ALLERGIES: See Below VITALS: See Below PHYSICAL EXAMINATION: GENERAL: Patient is awake alert in no acute distress patient is resting comfortably and showing no signs of anxiety EYES: The conjunctivae are clear. The pupils are round and reactive. EARS, NOSE, MOUTH AND THROAT: The nose is without any evidence of any deformity. NECK: The neck is nontender and supple. RESPIRATORY: Normal respiratory effort is noted there is no evidence of wheezing rhonchi or rales CARDIOVASCULAR: Regular rate and rhythm noted there no murmurs rubs or gallops normal S1 normal S2. GASTROINTESTINAL: The abdomen is soft. Abdomen is nontender. MUSCULOSKELETAL/EXTREMITIES: There is no evidence of gross deformity full range of motion is noted in the hips and shoulders. SKIN: There is no obvious evidence of any rash. There are no petechiae, pallor or cyanosis noted. NEUROLOGIC: Patient is awake alert and oriented x3. The patient has diminished sensation in the left upper extremity compared to the right. Test Inspection Engineer strength was symmetric. Patient is able to hold each leg off the bed for greater than 5 seconds MEDICAL DECISION MAKING: The patient is a 62-year-old female who presented to the emergency department through triage. The patient was made a stroke alert in triage by the triage nurse. The patient has a history of ischemic stroke in the past. The patient was very vague about her symptoms as well as her previous strokes. Review the patient's previous records does show she has a history of ischemic stroke but she also has a history of polycythemia. She does not take any medications at this time although I suspect she was likely told to started on antiplatelet medication in the past. The patient's symptoms were waxing and waning and ulti mately did improve. She did not appear to meet criteria for thrombolytics as her exact last known well time was fluctuating. The patient was evaluated by the telestroke neurologist. He was able to obtain some more clear history and it does appear that the patient's symptoms may have been ongoing earlier. Given the ambiguity the patient was not felt to be a good candidate for TNK. She was treated with labetalol to control her blood pressure in case she was found to be a candidate for TNK. She was also treated with IV fluids for her polycythemia as well as IV magnesium. She was also given a full-strength aspirin after the decision for thrombolytics was felt to be not in favor of thrombolytics at this time. I discussed the patient's condition with the on-call [facility] hospitalist. They have agreed to evaluate the patient in the emergency department for further management and disposition. I discussed the patient's condition with her as well as her significant other and family members. Triage Nursing notes reviewed. Prior medical records reviewed Vital Signs: reviewed and remarkable for elevated blood pressure. Differential diagnosis: Infection, dehydration, metabolic abnormality, hypo/hyperglycemia, electrolyte disturbance, anemia, hypoxia, cardiac sources, intracerebral event, toxicologic, neurologic, as well as other pathologies. ER treatment provided: See below Diagnostics interpreted by me: ECG: EKG was obtained in the emergency department. My interpretation is normal sinus rhythm at 81 bpm. There is no acute ST segment abnormalities noted. There is no ectopy. Cardiac Monitoring: An order was placed for continuous cardiac monitoring. The monitor shows a rate of 77 bpm with sinus rhythm. Laboratory studies: As stated above and show below. Imaging studies: See below. Radiographic imaging was reviewed by myself Consultation(s): I discussed this case with Dr. Lal who is on-call for the telestroke service at [facility] I discussed this case with Dr. Bustamante who is on-call for the [facility] hospitalist group. ED COURSE: Procedures: none Critical Care: I have personally spent greater than 50 minutes of critical care time in the direct management of this patient. This includes bedside care, interpretation of diagnostic studies, and testing, discussion with consultants, patient, and family members, and other required patient management activities. This 50 minutes is in excess of all separately billable procedures. Past Med/Surg History Medical History Alcohol dependence Stroke Tobacco abuse Surgical History H/O arthroscopic knee surgery H/O section Status post tubal ligation [place] teeth extracted Family History Father Diabetes Thyroid disease Unknown Esophageal cancer Myocardial infarction Hypertension Social History Smoking Status: Heavy tobacco smoker Tobacco Type: Cigarettes Cigarettes Per Day: 20; Second Hand Exposure: Yes; Do You Dip or Chew Tobacco: No; Tobacco Cessation Education Requested by Patient: No Hx Alcohol Use: Yes Alcohol type: beer Hx Substance Use: No Preferred Language: Sami Communication Ability: Effective Visual Impairment: No Limitations Hearing Ability: Normal Loan Operations Specialist Required: No Beliefs That Will Affect Care: None marital status: Current Living Situation: Family Current Living Situation Comment: Lives at home with Son current occupational status: unemployed Other Information That Helps Us Care for You: No Feels Safe at Home: Yes Safety Concerns: Feels Safe At This Time Assistive Devices: None Allergies Allergies Allergy/AdvReac Type Severity Reaction Status Date / Time Sulfa (Sulfonamide Allergy Intermediate HIVES Verified 01/15/23 16:42 Antibiotics) Home Meds Home Medications Medication Instructions Recorded Confirmed No Known Home Medications 04/11/21 01/15/23 Results & Data (ED) Vital Signs Vital Signs - 24 hr 01/15/23 16:16 01/15/23 16:53 01/15/23 16:54 Temperature 36.8 C Temperature Source Temporal Artery Scan Pulse Rate 80 86 90 Pulse Rate from SpO2 Sensor Respiratory Rate 16 21 Respiratory Effort / Characteristics Non-Labored Respiratory Depth Normal Blood Pressure 131/74 195/83 H Blood Pressure Mean 93 120 Pulse Oximetry 97 97 Oxygen Delivery Method Room Air Room Air Sepsis Recent Fever Within 48 Hours No Sepsis New/Unexplained Change in Mental Status No Sepsis Action Taken by Nursing No Action Required 01/15/23 17:01 01/15/23 16:55 01/15/23 17:00 Temperature Temperature Source Pulse Rate 80 76 Pulse Rate from SpO2 Sensor Respiratory Rate 19 19 Respiratory Effort / Characteristics Respiratory Depth Blood Pressure 184/86 H 172/78 H Blood Pressure Mean 118 109 Pulse Oximetry 96 98 98 Oxygen Delivery Method Room Air Room Air Room Air Sepsis Recent Fever Within 48 Hours Sepsis New/Unexplained Change in Mental Status Sepsis Action Taken by Nursing 01/15/23 17:08 01/15/23 17:10 01/15/23 17:15 Temperature Temperature Source Pulse Rate 85 75 79 Pulse Rate from SpO2 Sensor Respiratory Rate 22 16 14 Respiratory Effort / Characteristics Respiratory Depth Blood Pressure 160/76 H 165/74 H 163/74 H Blood Pressure Mean 104 104 103 Pulse Oximetry 98 96 97 Oxygen Delivery Method Room Air Room Air Room Air Sepsis Recent Fever Within 48 Hours Sepsis New/Unexplained Change in Mental Status Sepsis Action Taken by Nursing 01/15/23 17:20 01/15/23 17:20 01/15/23 17:25 Temperature Temperature Source Pulse Rate 80 Pulse Rate from SpO2 Sensor 80 Respiratory Rate 15 Respiratory Effort / Characteristics Respiratory Depth Blood Pressure 166/78 H 164/84 H Blood Pressure Mean 107 110 Pulse Oximetry 95 Oxygen Delivery Method Sepsis Recent Fever Within 48 Hours Sepsis New/Unexplained Change in Mental Status Sepsis Action Taken by Nursing 01/15/23 17:25 01/15/23 17:30 01/15/23 17:30 Temperature Temperature Source Pulse Rate 85 85 Pulse Rate from SpO2 Sensor 84 81 Respiratory Rate 17 23 Respiratory Effort / Characteristics Respiratory Depth Blood Pressure 173/83 H Blood Pressure Mean 113 Pulse Oximetry 96 94 Oxygen Delivery Method Sepsis Recent Fever Within 48 Hours Sepsis New/Unexplained Change in Mental Status Sepsis Action Taken by Nursing 01/15/23 17:45 01/15/23 18:00 01/15/23 18:01 Temperature Temperature Source Pulse Rate 77 76 76 Pulse Rate from SpO2 Sensor 78 77 79 Respiratory Rate 15 16 16 Respiratory Effort / Characteristics Respiratory Depth Blood Pressure Blood Pressure Mean Pulse Oximetry 97 98 98 Oxygen Delivery Method Sepsis Recent Fever Within 48 Hours Sepsis New/Unexplained Change in Mental Status Sepsis Action Taken by Nursing 01/15/23 18:01 01/15/23 18:15 Temperature Temperature Source Pulse Rate 78 Pulse Rate from SpO2 Sensor 77 Respiratory Rate 27 H Respiratory Effort / Characteristics Respiratory Depth Blood Pressure 179/90 H Blood Pressure Mean 119 Pulse Oximetry 98 Oxygen Delivery Method Sepsis Recent Fever Within 48 Hours Sepsis New/Unexplained Change in Mental Status Sepsis Action Taken by Alf Medications Current Medication List: was personally reviewed by me Laboratory Data Attestation: I reviewed the patient's lab results. 01/15/23 16:54 01/15/23 16:54 Lab Results 01/15/23 01/15/23 01/15/23 Range/Units 16:40 16:54 16:54 WBC 7.54 (4.8-10.8) K/ul RBC 6.33 H (4.20-5.40) M/uL Hgb 19.5 H (12.0-16.0) g/dl Hct 57.3 H (37.0-47.0) % MCV 90.5 (80.0-100.0) fL MCH 30.8 (25.0-34.0) pg MCHC 34.0 (32.0-36.0) g/dL RDW Std Deviation 47.2 H (36.4-46.3) fL RDW Coeff of Lee 14.9 H (11.5-14.5) % Plt Count 202 (130-400) K/uL MPV 10.3 (9.4-12.4) fL PT 12.3 H (9.0-12.0) Seconds INR 1.1 (0.9-1.1) APTT 26.1 (21.0-31.0) Seconds PTT Ratio 0.9 Sodium (136-145) mmol/L Potassium (3.5-5.1) mmol/L Chloride (98-107) mmol/L Carbon Dioxide (21-32) mmol/L Anion Gap (3-11) BUN (6-23) mg/dl Creatinine (0.6-1.2) mg/dl Est Cr Clr Drug Dosing ml/min Est GFR ( Amer) ml/min Est GFR (Non-Af Amer) ml/min BUN/Creatinine Ratio (10-20) Glucose (70-99(Fasting)) mg/dl Calcium (8.6-10.3) mg/dl Magnesium (1.7-2.4) mg/dl Total Bilirubin (0.2-1.0) mg/dl AST (13-39) U/L ALT (7-52) U/L Alkaline Phosphatase (34-104) U/L Total Protein (6.0-8.3) gm/dl Albumin (3.4-5.0) gm/dl Globulin (2.5-4.0) gm/dl Albumin/Globulin Ratio (0.9-2) Ethyl Alcohol mg/dL (<10.0) mg/dl SARS-CoV-2, RNA, NAAT NEGATIVE (NEGATIVE) 01/15/23 01/15/23 Range/Units 16:54 16:55 WBC (4.8-10.8) K/ul RBC (4.20-5.40) M/uL Hgb (12.0-16.0) g/dl Hct (37.0-47.0) % MCV (80.0-100.0) fL MCH (25.0-34.0) pg MCHC (32.0-36.0) g/dL RDW Std Deviation (36.4-46.3) fL RDW Coeff of Lee (11.5-14.5) % Plt Count (130-400) K/uL MPV (9.4-12.4) fL PT (9.0-12.0) Seconds INR (0.9-1.1) APTT (21.0-31.0) Seconds PTT Ratio Sodium 136 (136-145) mmol/L Potassium 4.0 (3.5-5.1) mmol/L Chloride 104 (98-107) mmol/L Carbon Dioxide 26 (21-32) mmol/L Anion Gap 6 (3-11) BUN 10 (6-23) mg/dl Creatinine 0.73 (0.6-1.2) mg/dl Est Cr Clr Drug Dosing 67.6 ml/min Est GFR ( Amer) 102.3 ml/min Est GFR (Non-Af Amer) 88.3 ml/min BUN/Creatinine Ratio 13.7 (10-20) Glucose 77 (70-99(Fasting)) mg/dl Calcium 9.8 (8.6-10.3) mg/dl Magnesium 2.0 (1.7-2.4) mg/dl Total Bilirubin 0.7 (0.2-1.0) mg/dl AST 16 (13-39) U/L ALT 11 (7-52) U/L Alkaline Phosphatase 78 (34-104) U/L Total Protein 6.8 (6.0-8.3) gm/dl Albumin 4.2 (3.4-5.0) gm/dl Globulin 2.6 (2.5-4.0) gm/dl Albumin/Globulin Ratio 1.6 (0.9-2) Ethyl Alcohol mg/dL < 10.0 (<10.0) mg/dl SARS-CoV-2, RNA, NAAT (NEGATIVE) Administered Medications Lactated Ringer's (Lr) 1,000 mls @ 80 mls/hr IV .[id number] TRAN Stop: 01/16/23 21:59 Last Admin: 01/15/23 20:37 Dose: 80 mls/hr Documented By: ARR Discontinued Medications Aspirin (Aspirin Chew 324 Mg) 324 mg PO NOW STA Stop: 01/15/23 17:21 Last Admin: 01/15/23 17:24 Dose: 324 mg Documented By: DAVIS Tenecteplase 11 mg/ Syringe 2.2 mls @ 26.4 mls/min IV NOW ONE; Protocol Stop: 01/15/23 16:58 Last Admin: 01/15/23 17:30 Dose: Not Given Documented By: DAVIS Sodium Chloride (Nss 1000ml) 500 mls @ 999 mls/hr IV .Q31M ONE Stop: 01/15/23 17:50 Last Infusion: 01/15/23 18:23 Dose: 0 mls/hr Documented By: Admin: 01/15/23 17:24 Dose: 999 mls/hr Documented By: DAVIS Magnesium Sulfate/Dextrose (Magnesium Sulfate / D5w) 1 gm in 100 mls @ 100 mls/hr IV Q1H TRAN Stop: 01/15/23 19:20 Last Infusion: 01/15/23 19:29 Dose: 0 mls/hr Documented By: Admin: 01/15/23 18:23 Dose: 100 mls/hr Documented By: Infusion: 01/15/23 18:23 Dose: 0 mls/hr Documented By: Admin: 01/15/23 17:24 Dose: 100 mls/hr Documented By: DAVIS Thiamine HCl 100 mg/ Syringe 10 mls @ 2 mls/min IV NOW STA Stop: 01/15/23 17:38 Last Admin: 01/15/23 17:59 Dose: 2 mls/min Documented By: PRASANNA Lactated Ringer's (Lr) 1,000 mls @ 999 mls/hr IV .Q1H1M ONE Stop: 01/15/23 20:13 Last Infusion: 01/15/23 21:00 Dose: 0 mls/hr Documented By: Admin: 01/15/23 19:43 Dose: 999 mls/hr Documented By: DONY Labetalol HCl (Labetalol Hcl Iv 5 Mg/Ml 20ml) 10 mg IV NOW STA Stop: 01/15/23 16:54 Last Admin: 01/15/23 16:56 Dose: 10 mg Documented By: DAVIS Co-signed By: TAMIA Labetalol HCl (Labetalol Hcl Iv 5 Mg/Ml 20ml) Confirm Administered Dose 10 mg IV .STK-MED ONE Stop: 01/15/23 16:56 Last Admin: 01/15/23 16:58 Dose: Not Given Documented By: DAVIS Miscellaneous (Stat Iv) 1 each N/A NOW STA Stop: 01/15/23 16:47 Last Admin: 01/15/23 17:30 Dose: Not Given Documented By: DAVIS Sodium Chloride (Sodium Chloride 0.9% 10ml Flush) 20 ml IV NOW STA Stop: 01/15/23 16:47 Last Admin: 01/15/23 17:30 Dose: Not Given Documented By: DAVIS Imaging Data Attestation: I personally reviewed and interpreted this imaging study as follows: My Impression: CT of the head noncontrast was obtained. My interpretation is area of previous ischemic stroke noted on the right and left. No acute hemorrhage, no mass effect, final report below. Radiologist's Impression: Head CT 01/15/23 16:22 CT head/brain wo con CLINICAL HISTORY: 62 years-old Female with Neuro deficit, acute, stroke suspected. Acute shocklike symptoms TECHNIQUE: Multiple axial CT images of the head were obtained without contrast. A dose lowering technique was utilized adhering to the principles of ALARA. CT DOSE: 537.48 mGy.cm COMPARISON: None. FINDINGS: No acute intracranial hemorrhage, midline shift, intracranial mass, hydrocephalus, territorial ischemia or abnormal extra-axial collection. Involutional changes with chronic microvascular disease. Chronic right frontal lobe infarct with encephalomalacia. Chronic right flank infarct. There are a few ill-defined hypodensities noted within the left frontal lobe centrum semiovale measuring up to 9 mm. The calvarium is intact. The paranasal sinuses, mastoid air cells, and middle ear cavities are clear. IMPRESSION: 1. No acute intracranial hemorrhage, midline shift or acute territorial infarct. 2. Involutional changes with chronic microvascular ischemic disease. 3. Ill-defined subcentimeter hypodense foci within the left frontal lobe centrum semiovale ovale are new from 04/11/2021 suggestive of age-indeterminate small infarcts. 4. Chronic infarcts as above. ACT 112: Negative or not required by law. The above report was generated using voice recognition software. It may contain grammatical, syntax or spelling errors. Electronically signed by: Frank Adams M.D. 01/15/2023 4:42 PM Head CTA 01/15/23 16:26 CT angio neck with con, CT angio head w con CLINICAL HISTORY: 62 years-old Female with cva. Acute stroke like symptoms COMPARISON STUDY: Head CT of same day TECHNIQUE: Following the IV administration of 116 mL of Optiray, CT angiogram of the head and neck was performed from the aortic arch to the skull apex. Images are reviewed in the axial, sagittal, and coronal planes. 3-D MIPS images are created and assessed. IV contrast was administered without complication. All measurements were calculated based on NASCET criteria. A dose lowering technique was utilized adhering to the principles of ALARA. CT DOSE: 336.86 mGy.cm FINDINGS: 60% stenosis of the proximal left subclavian artery. Innominate and subclavian arteries are otherwise patent. Patent common carotid arteries. Moderate to severe atherosclerotic plaque of the internal carotid arteries. There is mild less than 50% stenosis of the proximal cervical segment right ICA. There is high-grade greater than 70% stenosis of the proximal cervical segment left ICA on image 161 series 4. The anterior and middle cerebral arteries appear patent. Diminutive left A1 segment is likely developmental. Moderate focal stenosis of the right A2 segment on image 152. Dominant left vertebral artery demonstrates 50% of the proximal V1 segment on image 55 series 4. Years of high-grade stenosis greater than 70% are noted within the proximal V1 segment of the right vertebral artery. Additional high-grade stenosis within the distal V2 segment of the right vertebral artery at the level of C3. Basilar artery is patent. origin of the right posterior cerebral artery. 5 mm focus of high grade stenosis of the T1 segment right posterior cerebral artery in image 103. Mild luminal narrowing noted throughout the left posterior cerebral artery. The cerebral venous sinuses are patent. No abnormal intracranial enhancement identified. Ill-defined subsegmental hypodensities noted left frontal lobe centrum semiovale. Pulmonary emphysema. No pneumothorax. Degenerative changes of the cervical spine. IMPRESSION: 1. Atherosclerotic plaque of the left greater than right carotid bulbs with less than 50% stenosis of the right ICA and high-grade stenosis of the proximal cervical segment left ICA. 2. Multifocal high-grade stenoses throughout the right vertebral artery with focal high-grade stenosis of the right posterior cerebral artery. 3. 60% stenosis of the proximal left subclavian artery. ACT 112: Negative or not required by law. The above report was generated using voice recognition software. It may contain grammatical, syntax or spelling errors. Electronically signed by: Frank Adams M.D. 01/15/2023 4:53 PM Neck CTA 01/15/23 16:26 CT angio neck with con, CT angio head w con CLINICAL HISTORY: 62 years-old Female with cva. Acute stroke like symptoms COMPARISON STUDY: Head CT of same day TECHNIQUE: Following the IV administration of 116 mL of Optiray, CT angiogram of the head and neck was performed from the aortic arch to the skull apex. Images are reviewed in the axial, sagittal, and coronal planes. 3-D MIPS images are created and assessed. IV contrast was administered without complication. All measurements were calculated based on NASCET criteria. A dose lowering technique was utilized adhering to the principles of ALARA. CT DOSE: 336.86 mGy.cm FINDINGS: 60% stenosis of the proximal left subclavian artery. Innominate and subclavian arteries are otherwise patent. Patent common carotid arteries. Moderate to severe atherosclerotic plaque of the internal carotid arteries. There is mild less than 50% stenosis of the proximal cervical segment right ICA. There is high-grade greater than 70% stenosis of the proximal cervical segment left ICA on image 161 series 4. The anterior and middle cerebral arteries appear patent. Diminutive left A1 segment is likely developmental. Moderate focal stenosis of the right A2 segment on image 152. Dominant left vertebral artery demonstrates 50% of the proximal V1 segment on image 55 series 4. Years of high-grade stenosis greater than 70% are noted within the proximal V1 segment of the right vertebral artery. Additional high-grade stenosis within the distal V2 segment of the right vertebral artery at the level of C3. Basilar artery is patent. origin of the right posterior cerebral artery. 5 mm focus of high grade stenosis of the T1 segment right posterior cerebral artery in image 103. Mild luminal narrowing noted throughout the left posterior cerebral artery. The cerebral venous sinuses are patent. No abnormal intracranial enhancement identified. Ill-defined subsegmental hypodensities noted left frontal lobe centrum semiovale. Pulmonary emphysema. No pneumothorax. Degenerative changes of the cervical spine. IMPRESSION: 1. Atherosclerotic plaque of the left greater than right carotid bulbs with less than 50% stenosis of the right ICA and high-grade stenosis of the proximal cervical segment left ICA. 2. Multifocal high-grade stenoses throughout the right vertebral artery with focal high-grade stenosis of the right posterior cerebral artery. 3. 60% stenosis of the proximal left subclavian artery. ACT 112: Negative or not required by law. The above report was generated using voice recognition software. It may contain grammatical, syntax or spelling errors. Electronically signed by: Frank Adams M.D. 01/15/2023 4:53 PM Discharge Plan Visit Data Chief Complaint: TIA Symptoms Stated Complaint: TIA SYMPTOMS ED Provider: Dylan Merritt Discharge Problem: Stroke-like symptoms, Tobacco abuse, Polycythemia, Cerebrovascular disease Patient Disposition: Admitted As Inpatient Discharge Instructions Interventions: ED Discharge Assessment Last Done: 01/15/23 19:51
[2023-01-15 17:04] LABS: Hematocrit (blood only) 57.3 % (37.0-47.0); Hemoglobin 19.5 g/dl (12.0-16.0); Mean Corpuscular Hemoglobin 30.8 pg (25.0-34.0); Mean Corpuscular Volume 90.5 fL (80.0-100.0); Mean Platelet Volume 10.3 fL (9.4-12.4); Platelet Count 202 K/uL (130-400); RDW Coefficient of Variation 14.9 % (11.5-14.5); RDW Standard Deviation 47.2 fL (36.4-46.3); Red Blood Count 6.33 M/uL (4.20-5.40); White Blood Count 7.54 K/ul (4.8-10.8)
[2023-01-15 17:18] LABS: INR 1.1 (0.9-1.1); Partial Thromboplastin Ratio 0.9; Partial Thromboplastin Time 26.1 Seconds (21.0-31.0); Prothrombin Time 12.3 Seconds (9.0-12.0)
[2023-01-15] MEDS ORDERED: SODIUM CHLORIDE 0.9% 1000ML 500 ML IV ONE (17:20)
[2023-01-15] MEDS ORDERED: ASPIRIN CHEW 324 MG PO STA (17:20)
[2023-01-15] MEDS: MAGNESIUM SULFATE / D5W 1 GM/100 ML BAG IV SCH ×2 (17:24→18:23)
[2023-01-15 17:25] LABS: Albumin Globulin Ratio 1.6 (0.9-2); Albumin Level 4.2 gm/dl (3.4-5.0); BUN Creatinine Ratio 13.7 (10-20); Bilirubin,Total 0.7 mg/dl (0.2-1.0); Calcium 9.8 mg/dl (8.6-10.3); Creatinine Clr Calc Pharmacy 67.6 ml/min; Est GFR (African American) 102.3 ml/min; Est GFR (Non-African American) 88.3 ml/min; Globulin 2.6 gm/dl (2.5-4.0); Total Protein 6.8 gm/dl (6.0-8.3)
[2023-01-15] MEDS ORDERED: THIAMINE HCL 100 MG in SYRINGE 9 ML IV STA (17:34)
--- NOTE | 2023-01-15 18:16 | History & Physical Report ---
Date of Service January 15, 2023 Assessment & Plan (1) Stroke-like symptoms: Plan: -Admit to the PCU on tele -Currently afebrile, hypertensive at 179/90, and stable on RA -At this time the etiology of the patient's right eye pain and left UE paresthesias are unknown but includes and is not limited to embolic/ischemic stroke, Hypertensive encephalopathy, complication due to untreated polycythemia, anxiety, metabolic derangement -CT of the head was negative for acute hemorrhage. CTA of the head/neck show significant atherosclerotic disease throughout including high-grade stenosis of the proximal cervical segment left ICA, high-grade stenoses throughout the right vertebral artery with focal high-grade stenosis of the right posterior cerebral artery, and 60% stenosis of the proximal left subclavian artery. -S/P 324 mg PO aspirin and 1L NSS in the ED -Will obtain MRI of the Brain WO con and TTE for further evaluation -Will restart the patient on 40 mg PO atorvastatin daily with first dose tonight and 81 mg Aspirin daily starting tomorrow -Will consult Vascular surgery as she had multiple different areas of high grade stenosis of the cervical segment left ICA and vertebral arteries -Confirmed with the ED staff that the patient did NOT receive the TNK that was initially ordered -q4h neuro checks, aspiration precautions, PT/OT consults ordered -Continue to stress the importance of smoking cessation, compliance with medications, and consistent FU with hematology -BL SCD's for DVT PPX until MRI is complete -AM CBC, CMP, Mag, Lipid panel, A1C, PT/INR (2) Polycythemia: Plan: -Patient and family reports she previously followed with Dr. Sandoval and would get regularly scheduled phlebotomies -Apparently stopped following up as she thought she didn't need to? -Consulted Heme/onc, appreciate Dr. Hendrix's quick response, recommends continued IV hydration overnight, aggressive DVT PPX if stable from a stroke standpoint, and possible phlebotomy when stable -They will continue to follow (3) Hypertension: Plan: -Currently hypertensive at 160/75, asymptomatic -Not on outpatient antihypertensive therapy -Will allow for permissive HTN until her MRI is complete -Continue to monitor for now (4) Hyperlipidemia: Plan: -Restarting statin therapy (5) Tobacco abuse: Plan: -Continue to stress smoking cessation -Nicotine patches ordered while admitted Plan -The patient was discussed with Dr. Antonio at the time of the admission History of Present Illness Chief Complaint: Stroke symptoms Primary Care Provider: NO PCP Leisa is a 62 year old female with a PMH significant for multiple previous CVA's, latest in 2019, tobacco abuse, polycythemia (has followed with hematology in the past) who presented to the [facility] ED on 01/15/23 due to stroke-like symptoms. In the ED the patient was found to be hypertensive at 195/83, afebrile, and stable on RA. Labs were significant for a Hgb of 19.5, Hct of 57, platelets of 202, negative alcohol level and covid [address] of the head wo con was read as "1. No acute intracranial hemorrhage, midline shift or acute territorial infarct. 2. Involutional changes with chronic microvascular ischemic disease. 3. Ill-defined subcentimeter hypodense foci within the left frontal lobe centrum semiovale ovale are new from 04/11/2021 suggestive of age-indeterminate small infarcts. 4. Chronic infarcts as above.". CTA of the head/neck was read as "1. Atherosclerotic plaque of the left greater than right carotid bulbs with less than 50% stenosis of the right ICA and high-grade stenosis of the proximal cervical segment left ICA. 2. Multifocal high-grade stenoses throughout the right vertebral artery with focal high-grade stenosis of the right posterior cerebral artery. 3. 60% stenosis of the proximal left subclavian artery.". Per the ED staff, [facility] ([facility] did not recommend TNK but did recommend aspirin and a statin. Prior to admission the patient was given 324 mg PO aspirin and 1 bag IV magnesium-sulfate. At the time of the exam the patient was lying in bed in no acute distress with her family sitting bedside. She states that she started to develop right eye pain last evening but denies any changes in vision. She was at work earlier today when she started to experience left arm paresthesias and weakness, prompting her to come to the ED. At the time of the exam she states that her paresthesias have resolved but she is still experiencing 4/10 right eye pain without vision changes. She denies current headache, changes in vision, hearing, taste and smell, chest pain, SOB, abd pain, nausea, vomiting, diarrhea, dysuria, hematuria, melena, LE swelling, ambulatory dysfunction, and recent falls/trauma. When discussing her history of Polycythemia, she and her family explain that she previously followed with Dr. Sandoval of Hematology and would have regular phlebotomy appointments. She states that she stopped going approximately 7-8 months ago as she thought she was told she was better. Her family explains that they stated she was improving but never said to stop coming. She is still smoking approximately 1 PPD despite her previous CVA's and stopped taking aspirin and her statin because she didn't think they were helping. I explained that she cannot stop phlebotomies entirely as they are very important for those with polycythemia and could lead to further complications if she continues to not go. I stressed the importance of smoking cessation and continuing medications such as aspirin and a statin to help prevent recurrent strokes. Please refer to Dr. Antonio's attestation for any changes to the treatment plan Allergies Allergy/AdvReac Type Severity Reaction Status Date / Time Sulfa (Sulfonamide Allergy Intermediate HIVES Verified 01/15/23 16:42 Antibiotics) Home Medications Medication Instructions Recorded Confirmed Type aspirin 81 mg tablet,delayed 81 mg PO DAILY #0 tabs 01/17/23 Rx release atorvastatin 40 mg tablet 40 mg PO QAM #30 tabs 01/17/23 Rx clopidogrel 75 mg tablet 75 mg PO QAM #30 tabs 01/17/23 Rx Past Med/Surg History Medical History Alcohol dependence Stroke Tobacco abuse Surgical History H/O arthroscopic knee surgery H/O section Status post tubal ligation Otoe teeth extracted Family History Father Diabetes Thyroid disease Unknown Esophageal cancer Myocardial infarction Hypertension Social History Smoking Status: Heavy tobacco smoker Tobacco Type: Cigarettes Cigarettes Per Day: 20; Second Hand Exposure: Yes; Do You Dip or Chew Tobacco: No; Hx Alcohol Use: Yes Alcohol type: beer Hx Substance Use: No Preferred Language: Divehi Communication Ability: Effective Visual Impairment: No Limitations Hearing Ability: Normal Stove Fitter Required: No Beliefs That Will Affect Care: None marital status: Current Living Situation: Family Current Living Situation Comment: Lives at home with Son current occupational status: unemployed Feels Safe at Home: Yes Assistive Devices: None Physical Exam Physical Exam: Physical Exam: General: In no acute distress, stated age, poor hygiene, chronically ill appearing HEENT: Normocephalic, atraumatic, no scleral icterus, pupils around round, s ymmetrical, and reactive to light, dry mucus membranes, trachea midline, no thyromegaly Chest/Pulm: No respiratory distress, symmetrical chest expansion, clear breath sounds throughout Cardiac: RRR, no murmurs noted Abdomen: Negative for ascites and bruising, normoactive bowel sounds, soft, non-tender to palpation throughout Musculoskeletal: Symmetrical and without signs of acute trauma, upper and lower extremities with full ROM, no atrophy, spasticity, or flaccidity Extremities: Radial, dorsalis pedis, and posterior tibial pulses are intact and symmetrical, no edema noted in the BL LE's Skin: Warm, dry, no rashes , lesions, or scars noted Neuro: Alert and oriented to person, place, month, year, and president, no focal defects, CN II-XII tested and intact, cerebellar and pronator drift negative, no tremors noted Psych: No acute distress, calm and cooperative during the exam Results & Data Results & Data Vital Signs (Past 12 Hours) Vital Signs Temp Pulse Resp BP Pulse Ox O2 Del Method 01/15/23 17:15 79 14 163/74 H 97 Room Air 01/15/23 17:10 75 16 165/74 H 96 Room Air 01/15/23 17:08 85 22 160/76 H 98 Room Air 01/15/23 17:00 76 19 172/78 H 98 Room Air 01/15/23 16:55 80 19 184/86 H 98 Room Air 01/15/23 17:01 96 Room Air 01/15/23 16:54 90 01/15/23 16:53 86 21 195/83 H 97 Room Air 01/15/23 16:16 36.8 C 80 16 131/74 97 Room Air Laboratory Results Abnormal lab results 01/15/23 01/15/23 Range/Units 16:54 16:54 RBC 6.33 H (4.20-5.40) M/uL Hgb 19.5 H (12.0-16.0) g/dl Hct 57.3 H (37.0-47.0) % RDW Std Deviation 47.2 H (36.4-46.3) fL RDW Coeff of Lee 14.9 H (11.5-14.5) % PT 12.3 H (9.0-12.0) Seconds Diagnostic Findings Head CT 01/15/23 16:22 CT head/brain wo con CLINICAL HISTORY: 62 years-old Female with Neuro deficit, acute, stroke suspected. Acute shocklike symptoms TECHNIQUE: Multiple axial CT images of the head were obtained without contrast. A dose lowering technique was utilized adhering to the principles of ALARA. CT DOSE: 537.48 mGy.cm COMPARISON: None. FINDINGS: No acute intracranial hemorrhage, midline shift, intracranial mass, hydrocephalus, territorial ischemia or abnormal extra-axial collection. Involutional changes with chronic microvascular disease. Chronic right frontal lobe infarct with encephalomalacia. Chronic right flank infarct. There are a few ill-defined hypodensities noted within the left frontal lobe centrum semiovale measuring up to 9 mm. The calvarium is intact. The paranasal sinuses, mastoid air cells, and middle ear cavities are clear. IMPRESSION: 1. No acute intracranial hemorrhage, midline shift or acute territorial infarct. 2. Involutional changes with chronic microvascular ischemic disease. 3. Ill-defined subcentimeter hypodense foci within the left frontal lobe centrum semiovale ovale are new from 04/11/2021 suggestive of age-indeterminate small infarcts. 4. Chronic infarcts as above. ACT 112: Negative or not required by law. The above report was generated using voice recognition software. It may contain grammatical, syntax or spelling errors. Electronically signed by: Frank Adams M.D. 01/15/2023 4:42 PM Head CTA 01/15/23 16:26 CT angio neck with con, CT angio head w con CLINICAL HISTORY: 62 years-old Female with cva. Acute stroke like symptoms COMPARISON STUDY: Head CT of same day TECHNIQUE: Following the IV administration of 116 mL of Optiray, CT angiogram of the head and neck was performed from the aortic arch to the skull apex. Images are reviewed in the axial, sagittal, and coronal planes. 3-D MIPS images are created and assessed. IV contrast was administered without complication. All measurements were calculated based on NASCET criteria. A dose lowering technique was utilized adhering to the principles of ALARA. CT DOSE: 336.86 mGy.cm FINDINGS: 60% stenosis of the proximal left subclavian artery. Innominate and subclavian arteries are otherwise patent. Patent common carotid arteries. Moderate to severe atherosclerotic plaque of the internal carotid arteries. There is mild less than 50% stenosis of the proximal cervical segment right ICA. There is high-grade greater than 70% stenosis of the proximal cervical segment left ICA on image 161 series 4. The anterior and middle cerebral arteries appear patent. Diminutive left A1 segment is likely developmental. Moderate focal stenosis of the right A2 segment on image 152. Dominant left vertebral artery demonstrates 50% of the proximal V1 segment on image 55 series 4. Years of high-grade stenosis greater than 70% are noted within the proximal V1 segment of the right vertebral artery. Additional high-grade stenosis within the distal V2 segment of the right vertebral artery at the level of C3. Basilar artery is patent. origin of the right posterior cerebral artery. 5 mm focus of high grade stenosis of the T1 segment right posterior cerebral artery in image 103. Mild luminal narrowing noted throughout the left posterior cerebral artery. The cerebral venous sinuses are patent. No abnormal intracranial enhancement identified. Ill-defined subsegmental hypodensities noted left frontal lobe centrum semiovale. Pulmonary emphysema. No pneumothorax. Degenerative changes of the cervical spine. IMPRESSION: 1. Atherosclerotic plaque of the left greater than right carotid bulbs with less than 50% stenosis of the right ICA and high-grade stenosis of the proximal cervical segment left ICA. 2. Multifocal high-grade stenoses throughout the right vertebral artery with focal high-grade stenosis of the right posterior cerebral artery. 3. 60% stenosis of the proximal left subclavian artery. ACT 112: Negative or not required by law. The above report was generated using voice recognition software. It may contain grammatical, syntax or spelling errors. Electronically signed by: Frank Adams M.D. 01/15/2023 4:53 PM Neck CTA 01/15/23 16:26 CT angio neck with con, CT angio head w con CLINICAL HISTORY: 62 years-old Female with cva. Acute stroke like symptoms COMPARISON STUDY: Head CT of same day TECHNIQUE: Following the IV administration of 116 mL of Optiray, CT angiogram of the head and neck was performed from the aortic arch to the skull apex. Images are reviewed in the axial, sagittal, and coronal planes. 3-D MIPS images are created and assessed. IV contrast was administered without complication. All measurements were calculated based on NASCET criteria. A dose lowering technique was utilized adhering to the principles of ALARA. CT DOSE: 336.86 mGy.cm FINDINGS: 60% stenosis of the proximal left subclavian artery. Innominate and subclavian arteries are otherwise patent. Patent common carotid arteries. Moderate to severe atherosclerotic plaque of the internal carotid arteries. There is mild less than 50% stenosis of the proximal cervical segment right ICA. There is high-grade greater than 70% stenosis of the proximal cervical segment left ICA on image 161 series 4. The anterior and middle cerebral arteries appear patent. Diminutive left A1 segment is likely developmental. Moderate focal stenosis of the right A2 segment on image 152. Dominant left vertebral artery demonstrates 50% of the proximal V1 segment on image 55 series 4. Years of high-grade stenosis greater than 70% are noted within the proximal V1 segment of the right vertebral artery. Additional high-grade stenosis within the distal V2 segment of the right vertebral artery at the level of C3. Basilar artery is patent. origin of the right posterior cerebral artery. 5 mm focus of high grade stenosis of the T1 segment right posterior cerebral artery in image 103. Mild luminal narrowing noted throughout the left posterior cerebral artery. The cerebral venous sinuses are patent. No abnormal intracranial enhancement identified. Ill-defined subsegmental hypodensities noted left frontal lobe centrum semiovale. Pulmonary emphysema. No pneumothorax. Degenerative changes of the cervical spine. IMPRESSION: 1. Atherosclerotic plaque of the left greater than right carotid bulbs with less than 50% stenosis of the right ICA and high-grade stenosis of the proximal cervical segment left ICA. 2. Multifocal high-grade stenoses throughout the right vertebral artery with focal high-grade stenosis of the right posterior cerebral artery. 3. 60% stenosis of the proximal left subclavian artery. ACT 112: Negative or not required by law. The above report was generated using voice recognition software. It may contain grammatical, syntax or spelling errors. Electronically signed by: Frank Adams M.D. 01/15/2023 4:53 PM ECG Additional Comments: Normal sinus rhythm Possible Left atrial enlargement Nonspecific ST abnormality Abnormal ECG When compared with ECG of 29-MAR-2022 12:24, No significant change was found Code Status & VTE Plan Code Status Full code VTE Prophylaxis Plan VTE Prophylaxis will be ordered: Yes Supervising Physician Co-Signing Physician Notes Patient seen and examined, chart reviewed, case discussed with Amado Dukes PA-C and I agree with the assessment and plan as above except as otherwise noted Labs and images reviewed Leisa is seen at the bedside while in the ER. She has a past history of multiple CVAs, tobacco use, polycythemia lost to follow-up previously with therapeutic phlebotomy with hematology, who presented to the ER with hypertension, left arm numbness/tingling, and right eye pain without visual change. At time of bedside evaluation she is breathing comfortably, reports the tingling in her left arm has almost completely resolved, about 90% gone, and her eye pain is around 80% better. EOMs are intact without nystagmus, visual bhandari are intact to confrontation without field cuts. Moves all extremities equally, renal dialysis rn strength, elbow flexion, ankle dorsiflexion/plantarflexion and hip flexion 5/5. Patient has extremely poor dentition agree with admission for stroke evaluation. TNKase was initially ordered however due to improving symptoms and neurosurgical telemetry consultation this has been deferred and was not given. Patient reports she was previously on aspirin and atorvastatin, stopped taking her medications quite a long time ago "she did receive full dose aspirin was given. MRI resulted following admission overnight, acute to subacute small left occipital lobe infarcts are noted. Global microvascular ischemic change and chronic bilateral cerebral and cerebellar infarctions are noted. 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 With history of prior strokes, current strokes, and multiple significant sten oses vascular has been consulted. Additionally patient is likely with an element of hyperviscosity due polycythemia. 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 Start pharmacologic DVT prophylaxis with Lovenox 5/2, may use subcu heparin if YEE develops.Patient has received IV fluids, hematology oncology has been consulted, recommend patient resume therapeutic phlebotomy. Permissive hypertension for 24 hours, labetalol on-call for hypertension greater than 220/120. PG Care Time/CCT Total # of Minutes Spent Total Time Spent with Patient: Total time spent is greater than 50% in coordination of care (as documented) at patient's floor/unit and/or counseling patient: Coding [place] [id number] INT INP/OBS CARE 3/75MIN Patient Type Established Medical Decision Making High Complexity Diagnoses Stroke-like symptoms R29.90 Polycythemia D75.1 Hypertension I10 Hypertension type: essential hypertension Hyperlipidemia E78.2 Hyperlipidemia type: mixed hyperlipidemia Tobacco abuse Z72.0 (3) Hypertension Hypertension type: essential hypertension Qualified Code(s): I10 - Essential (primary) hypertension (4) Hyperlipidemia Hyperlipidemia type: mixed hyperlipidemia Qualified Code(s): E78.2 - Mixed hyperlipidemia
[2023-01-15] MEDS ORDERED: PHARMACIST DISCHARGE MED REC CONSULT PRN (18:29)
[2023-01-15] MEDS ORDERED: LACTATED RINGER'S 1,000 ML IV ONE (19:13)
[2023-01-15] MEDS ORDERED: ATORVASTATIN 40 MG TAB PO STA (19:49)
[2023-01-15] MEDS ORDERED: ACETAMINOPHEN 325 MG TAB PO PRN (20:26)
[2023-01-15] MEDS: LACTATED RINGER'S 1,000 ML IV SCH (20:37)
[2023-01-15] MEDS: NICOTINE 21 MG/24 HR TDSY TD SCH (21:51)
--- NOTE | 2023-01-15 22:48 | Magnetic Resonance Report ---
Exam(s): MRI HEAD Without Contrast EXAM: MR Head Without Intravenous Contrast CLINICAL HISTORY: Reason for exam: stroke workup. TECHNIQUE: Magnetic resonance images of the head/brain without intravenous contrast in multiple planes. COMPARISON: CT head 01/15/2023. MRI brain 08/18/2019. FINDINGS: Brain: Acute to subacute small left occipital lobe infarctions. Global parenchymal volume loss with chronic microvascular ischemic changes as well as chronic bilateral cerebral hemisphere and cerebellum infarctions. No hemorrhage. Ventricles: No ventriculomegaly. Bones/joints: Unremarkable. Sinuses: Mild mucosal thickening in the paranasal sinuses. Mastoid air cells: Bilateral mastoid effusions, left greater than right. Orbits: Unremarkable as visualized. IMPRESSION: 1. Acute to subacute small left occipital lobe infarctions. 2. Global parenchymal volume loss with chronic microvascular ischemic changes as well as chronic bilateral cerebral hemisphere and cerebellum infarctions. Communications: Call Doctor Stroke Electronically signed by: Jordan Ramos MD 01/15/23 22:48 PM
[2023-01-16 07:14] LABS: Albumin Globulin Ratio 1.8 (0.9-2); Albumin Level 3.9 gm/dl (3.4-5.0); Bilirubin,Total 0.5 mg/dl (0.2-1.0); Calcium 8.9 mg/dl (8.6-10.3); Chol HDL Ratio 3.4 (0-5); Creatinine Clr Calc Pharmacy 101.5 ml/min; Est GFR (African American) 122.7 ml/min; Est GFR (Non-African American) 105.9 ml/min; Globulin 2.2 gm/dl (2.5-4.0); Magnesium 1.9 mg/dl (1.7-2.4); Potassium 3.7 mmol/L (3.5-5.1); Total Protein 6.1 gm/dl (6.0-8.3)
--- NOTE | 2023-01-16 07:19 | Hospitalist Progress Note ---
Date of Service January 16, 2023 Assessment & Plan (1) Erythrocytosis: Plan: This is a quick chart only review, full consult will follow this evening. Patient does have a history of elevated hemoglobin but screen for JAK2 mutation was apparently negative. She is a longtime significant smoker and there is almost certainly an element of "secondary" erythrocytosis - this was indeed cited in the most recent hematology/oncology note from 06/28/2021. 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 In the context of possible acute compromise of circulation to the FURNITURE FABRICATOR, should be cautious about excessively aggressive phlebotomy as a transient changes in blood pressure might be disadvantageous wrt acute compromise for FURNITURE FABRICATOR flow. Once vascular surgery has determined whether or not there are acutely threatening FURNITURE FABRICATOR vascular issues, could consider cautious phlebotomy of 250 mL only with volume replacement with saline every other day and for now targeting to bring the hemoglobin just to approximately 15 to 16 g/dL. I will further review and we can discuss to what extent we need a more aggressive hemoglobin target long- term. In general, thrombosis issues are more pronounced in JAK2 positive myeloproliferative disorders and the greater concern here might be optimizing her blood viscosity. Plan Immediate issue will be to make sure she is reasonably well-hydrated, well oxygenated, and that vascular surgery determines if there are any immediately threatening critical stenoses. If there is no immediately threatening vascular anatomy, would consider cautious phlebotomy as outlined above in 250 mL aliquots every other day with volume for volume saline replacement until her hemoglobin can be brought closer to the 15 to 16 g/dL range. We will review in more detail with ongoing suggestions based on a more complete consultation later today. Would assure that she has vigorous DVT prophylaxis. Smoking cessation will be a critical part of her specific optimization of hemoglobin levels but also more generally optimization of health overall. We do note that March, chest CT did not show any concerning lesions, she should continue with annual "screening" low-dose chest CTs going forward Admission and Anticipated Discharge Date Admission Date: January 15, 2023 Subjective Patient with a history of erythrocytosis admitted with possible TIA/CVA. Results & Data Results & Data Vital Signs (Past 12 Hours) Vital Signs Temp Pulse Pulse Resp BP BP Pulse Ox 01/16/23 03:30 36.6 C 72 18 142/66 H 94 01/15/23 22:00 62 01/15/23 23:35 36.5 C 74 18 144/75 H 98 01/15/23 22:54 36.6 C 69 20 130/72 95 01/15/23 20:05 78 01/15/23 21:08 01/15/23 20:05 36.4 C L 75 18 178/82 H 98 01/15/23 19:45 77 18 160/75 H 95 O2 Del Method 01/16/23 03:30 Room Air 01/15/23 22:00 01/15/23 23:35 Room Air 01/15/23 22:54 Room Air 01/15/23 20:05 01/15/23 21:08 Room Air 01/15/23 20:05 Room Air 01/15/23 19:45 Room Air PG Care Time/CCT Total # of Minutes Spent Total Time Spent with Patient: Total time spent is greater than 50% in coordination of care (as documented) at patient's floor/unit and/or counseling patient: Coding Level of Care Code None Diagnoses Erythrocytosis D75.1
[2023-01-16 07:27] LABS: INR 1.1 (0.9-1.1); Prothrombin Time 11.8 Seconds (9.0-12.0)
[2023-01-16 07:37] LABS: Estimated Average Glucose 111 mg/dl; Hemoglobin A1C 5.5 % (4.5-5.6)
--- NOTE | 2023-01-16 08:04 | XRay Report ---
XR chest 1V portable HISTORY: Left-sided cerebral infarct. stroke alert COMPARISON: Chest 03/29/2022. FINDINGS: The lungs are clear. Cardiac silhouette is normal in size. No pleural effusions. No pneumot horax. Sagittal clips noted within the right breast. IMPRESSION: No acute process. ACT 112: Negative or not required by law. Electronically signed by: Popeye Rubio M.D. 01/16/2023 7:01 AM
[2023-01-16] MEDS: ASPIRIN 81 MG ECTAB PO SCH (08:36)
[2023-01-16] MEDS: NICOTINE 21 MG/24 HR TDSY TD SCH (08:37)
[2023-01-16] MEDS: ATORVASTATIN 40 MG TAB PO SCH (08:57)
[2023-01-16] MEDS: LACTATED RINGER'S 1,000 ML IV SCH (09:27)
--- NOTE | 2023-01-16 10:06 | Neurology Consultation ---
Date of Consultation January 16, 2023 Assessment & Plan (1) Stroke: (2) Left carotid stenosis: (3) Cerebrovascular disease: (4) Tobacco abuse: (5) Erythrocytosis: Plan 62-year-old female with a history of multiple strokes, ongoing tobacco abuse, noncompliance with antiplatelet and statin therapy, presenting with somewhat vague, nonspecific sensory symptoms involving the right eye or right side of the face, without clear ocular pain or vision disturbance, as well as associated nu mbness and tingling for the left hand. Symptoms resolved within 1 to 2 hours. She does not recall having similar symptoms in the past. The symptoms were potentially concerning for stroke or TIA. Follow-up imaging including CTA of the head and neck and brain MRI have revealed a high-grade stenosis of the proximal left internal carotid artery as well as diffuse multifocal atherosclerotic plaque as well as an acute to subacute appearing infarct within the left parieto-occipital region, in addition to several other multifocal chronic infarcts. Although the acute to subacute left parieto-occipital infarcts could potentially produce some visual processing difficulty off to the right, her presenting symptoms are somewhat vague in this regard. Further, I would not expect the location of these acute to subacute infarcts to produce sensory disturbance to the left hand as she describes. She does have multiple chronic infarcts, in both cerebral hemispheres, however. It is possible that her chronic right hemispheric infarcts could have become temporarily symptomatic, producing left hand symptoms in the setting of hypertensive urgency or possibly reduced cerebral perfusion. I do suspect that the proximal left ICA stenosis (approximately 90%) is symptomatic, in light of the location of the above acute to subacute infarct which involves either a posterior left MCA branch or possibly left DICE PERSON/MCA watershed. As above, stroke risk factors for this patient include ongoing tobacco abuse with secondary erythrocytosis/polycythemia, and noncompliance with aspirin and statin therapy as previously recommended. Agree with vascular surgery consultation regarding the left carotid stenosis. She will need ongoing treatment with daily low-dose aspirin and a statin going forward, in light of her multifocal cerebrovascular disease. Would also recommend dual antiplatelet therapy, however, I will defer to vascular surgery regarding this recommendation as she would likely need a revascularization surgery to address the proximal left carotid stenosis. Would recommend a transthoracic echocardiogram. Furthermore, given multifocal distribution of patient's chronic strokes, I would also recommend 30-day mobile outpatient cardiac telemetry. Patient will need ongoing counseling for tobacco cessation. Permissive hypertension is appropriate acutely. Long-term blood pressure goal less than 130/85. Please call with any questions. History of Present Illness Reason for Consultation: Left occipital stroke Requesting Physician: Dr. Rasmussen Attending Physician: Marcel Rasmussen MD History of Present Illness The patient is a 62-year-old female with a history of chronic tobacco abuse, secondary erythrocytosis, multiple strokes, medication noncompliance, presenting with strokelike symptoms. I had seen her previously in neurological consultation in August 2019 for an acute multifocal left hemispheric stroke. CT angiography at that time had revealed moderate bilateral atheromatous changes of the left carotid and proximal left internal carotid arteries. Treatment with daily low-dose aspirin and atorvastatin was recommended, as well as smoking cessation. She had seen her PCP in September 2019 and had further discussion regarding her stroke and ongoing tobacco abuse with need for smoking cessation. I note that she had an encounter in the emergency department in March 2021 for a near syncopal event. At that point in time, it looks like she was no longer taking daily low-dose aspirin or atorvastatin. She presented to the emergency department yesterday complaining that her left hand had been tingling, she also complained that something felt wrong with her right high although she was unable to elaborate further, denied pain or vision loss. The symptoms have completely resolved. She does not recall having similar symptoms to the left hand or right eye previously. She seems to be an unreliable historian, however, and is not able to relay specific details regarding her symptoms such as character, timing, or other associated symptoms. Allergies Allergy/AdvReac Type Severity Reaction Status Date / Time Sulfa (Sulfonamide Allergy Intermediate HIVES Verified 01/15/23 16:42 Antibiotics) Home Medications Medication Instructions Recorded Confirmed Type No Known Home Medications 04/11/21 01/15/23 History Patient History Medical History Alcohol dependence Stroke Tobacco abuse Surgical History H/O arthroscopic knee surgery H/O section Status post tubal ligation [place] teeth extracted Family History Father Diabetes Thyroid disease Unknown Esophageal cancer Myocardial infarction Hypertension Social History Smoking Status: Heavy tobacco smoker Tobacco Type: Cigarettes Cigarettes Per Day: 20; Second Hand Exposure: Yes; Do You Dip or Chew Tobacco: No; Tobacco Cessation Education Requested by Patient: No Hx Alcohol Use: Yes Alcohol type: beer Hx Substance Use: No Preferred Language: German Communication Ability: Effective Visual Impairment: No Limitations Hearing Ability: Normal Cook Jelly Required: No Beliefs That Will Affect Care: None marital status: Current Living Situation: Family Current Living Situation Comment: Lives at home with Son current occupational status: unemployed Other Information That Helps Us Care for You: No Feels Safe at Home: Yes Safety Concerns: Feels Safe At This Time Assistive Devices: None Review of Systems Constitutional: no fever and no chills Eyes: as per Subjective / HPI; no blind spots, no diplopia and no eye pain Ear, Nose, Mouth, Throat: no ear pain and no hearing loss Respiratory: no cough and no dyspnea Cardiovascular: no chest pain and no palpitations Gastrointestinal: no nausea and no vomiting Genitourinary: no dysuria Musculoskeletal: no neck pain and no myalgia Integumentary: no rash and no lesions Neurologic: as per Subjective / HPI and + loss of sensation; no abnormal movements, no dizziness and no headache(s) Psychiatric: no depression and no anxiety Hematologic / Lymphatic: no easy bleeding and no easy bruising Exam (Neuro) Constitutional: well developed and well nourished; no acute distress Eyes: normal visual bhandari by confrontation, PERRL, normal accommodation and EOM intact bilaterally; no fundoscopic abnormality, no nystagmus and no papilledema Cardiovascular: Vessels: normal carotid upstroke; no carotid bruit Neurologic: Oriented to:: Person, Place and Time Memory: Short Term Intact and Remote Intact Attention: Span Intact and Concentration Intact Language: Naming Objects and Repeating Phrases Speech Fluency: negative Dysarthria Speech Aphasia: negative Aphasia Fund of Knowledge: Current Events, Past History and Vocabulary Cranial Nerves: Normal II (Visual bhandari full to confrontation, visual acuity normal), III, IV, (Pupils equal round reactive to light and accommodation, eye movements normal), V (Facial sensation intact), VII (There is no facial droop or weakness), VIII (Hearing intact), IX, X (Palate elevates to midline), XI (Shoulder shrug intact) and XII (Tongue protrudes to midline) Motor Strength: Normal Lower Extremities and Normal Upper Extremities; negative Pronator Drift Motor Tone: Normal Lower Ext remities and Normal Upper Extremities Muscle Bulk/Involuntary Movements: No Involuntary Movements; negative Muscle Atrophy Sensation: Light Touch Intact, Pain/Temperature Intact, Vibration Intact and Proprioception Intact Coordination: Normal; negative Limited Balance, Dysdiadochokinesia, Finger-Nose Abnormal or Heel-Veliz Abnormal Deep Tendon Reflexes: Rt Triceps: 2+, Lt Triceps: 2+, Rt Biceps: 3+, Lt Biceps: 2+, Rt Brachioradialis: 2+, Lt Brachioradialis: 2+, Rt Patellar: 2+, Lt Patellar: 3+, Rt Ankle: 2+ and Lt Ankle: 2+ Special Tests: Babinski Present (left) Gait: Normal Station and Gait Results & Data Vital Signs (Past 12 Hours) Vital Signs Temp Pulse Pulse Resp BP BP Pulse Ox 01/16/23 06:02 77 01/16/23 07:27 36.3 C L 60 20 114/71 96 01/16/23 03:30 36.6 C 72 18 142/66 H 94 01/15/23 22:00 62 01/15/23 23:35 36.5 C 74 18 144/75 H 98 01/15/23 22:54 36.6 C 69 20 130/72 95 O2 Del Method 01/16/23 06:02 01/16/23 07:27 Room Air 01/16/23 03:30 Room Air 01/15/23 22:00 01/15/23 23:35 Room Air 01/15/23 22:54 Room Air Laboratory Results WBC 7.54, hemoglobin 19.5, hematocrit 57.3, platelet count 202, sodium 136, potassium 4.0, BUN 10, creatinine 0.73, glucose 77, calcium 9.8, magnesium 2.0, AST 16, ALT 11, triglycerides 70, cholesterol 134, LDL 81, VLDL 14, HDL 39, SARS-CoV-[address] of the head reveals chronic microvascular ischemic disease, chronic appearing infarcts within the left frontal lobe, as well as chronic infarcts within the right caudate head, right matias radiata, and right thalamus. CT angiography of the head and neck revealed plaque within both carotid bulbs, left greater than right. 50% stenosis of the right ICA and a high-grade stenosis of the proximal cervical left ICA, probably about 90%. Multifocal high-grade stenosis throughout the right vertebral artery with focal high-grade stenosis of the right posterior cerebral artery and 60% stenosis of the proximal left subclavian artery. Brain MRI reveals acute to subacute infarcts within the left occipital lobe which look to be more within a left DICE PERSON/MCA watershed distribution, or distal posterior left MCA branch. No hemorrhage on GRE. Multiple chronic infarcts again observed, noting the right caudate region, adjacent to the right lateral ventricle, left frontal lobe/matias radiata, right frontal lobe, right thalamus. I independently reviewed these images. An electrocardiogram revealed a normal sinus rhythm, possible left atrial enlargement, 81 bpm. PG Care Time/CCT Total # of Minutes Spent Total Time Spent with Patient: 85 minutes spent with chart review, direct imaging review, review of labs, medical tests including ECG, previous consultation report, interview and examination of patient, and medical documentation. Coding Level of Care Code 04475 INT INP/OBS CARE MIN Diagnoses Stroke I63.9 CVA mechanism: unspecified Left carotid stenosis I65.22 Cerebrovascular disease I67.9 Tobacco abuse Z72.0 Erythrocytosis D75.1 (1) Stroke CVA mechanism: unspecified Qualified Code(s): I63.9 - Cerebral infarction, unspecified
[2023-01-16 10:29] LABS: Basophils # (auto) 0.07 K/uL (0-0.2); Eosinophils # (auto) 0.16 K/uL (0-0.50); Eosinophils % (auto) 2.3 %; Hematocrit (blood only) 53.9 % (37.0-47.0); Immature Granulocytes # (auto) 0.01 K/uL (0.01-0.20); Immature Granulocytes % (auto) 0.1 %; Lymphocytes # (auto) 2.59 K/uL (1.2-3.4); Lymphocytes % (auto) 36.9 %; Mean Corpuscular Hemoglobin 30.4 pg (25.0-34.0); Mean Corpuscular Hgb Conc 33.4 g/dL (32.0-36.0); Mean Platelet Volume 10.5 fL (9.4-12.4); Monocytes # (auto) 0.48 K/uL (0.11-0.59); Monocytes % (auto) 6.8 %; Neutrophils # (auto) 3.71 K/uL (1.40-6.50); Neutrophils % (auto) 52.9 %; Platelet Count 193 K/uL (130-400); RDW Coefficient of Variation 14.1 % (11.5-14.5); RDW Standard Deviation 47.5 fL (36.4-46.3); Red Blood Count 5.92 M/uL (4.20-5.40); White Blood Count 7.02 K/ul (4.8-10.8)
--- NOTE | 2023-01-16 11:08 | Consultation ---
Date of Consultation January 16, 2023 Assessment & Plan (1) Left carotid stenosis: Pt with severe stenosis of her L ICA on CTA, and multiple areas of infarct on her brain MRI. Pt also seen by Dr Allen today. Recommends pt consider surgical intervention to reduce risk of further CVA. Carotid endarterectomy vs TCAR were both discussed with pt in detail, including the requirement of daily ASA, statin, and plavix medication for 1 year post TCAR. She is leaning toward TCAR. She would like to discuss with her family and then come to office in 1 week to discuss further and schedule procedure. ASA and atorvastatin have already been initiated, will add daily clopidogrel 75mg. She will need to be taking all three when she is discharged in preparation for TCAR. Also ordered echocardiogram for preop eval. Our office will call pt to schedule next week in office. Pt is agreeable to this plan. Patient was seen, examined, and chart reviewed. Agree with exam and treatment plan of the Vascular PA. History of Present Illness Reason for Consultation: carotid stenosis Attending Physician: Marcel Rasmussen MD History of Present Illness 62 yo f with hx of HTN, prior CVA, polycythemia, and longstanding hx of heavy smoking, admitted with strokelike sx, seen in consultation today for L ICA stenosis noted on CTA neck. Pt is a very poor historian. She states that she had R eye vision changes and some L hand tingling prior to arrival here yesterday, but cannot state how long the sx were present before they resolved. Does not remember having similar sx in past. Also states she has had a "strange" way of walking for many years. Review of charts from previous admissions in 2019 for strokelike sx indicate that she had some chronic weakness in her L hand and cognitive problems d/t remote hx of CVA. Pt states she does not see a physician regularly and stopped taking all of her medications because she "doesn't like taking medications." She smokes at least 1 PPD and does drink beer daily as well. Pt denies any sx presently, including amaurosis, unilateral extremity weakness or numbness, difficulty speaking or swallowing, facial droop. Also denies BUTTS, syncope, chest pain, palpitations, abd pain, N/V, rest pain, claudication, discoloration of toes, other complaints. CTA neck demonstrates L ICA stenosis of 90%, vertebral artery disease, and L subclavian artery stenosis. Allergies Allergy/AdvReac Type Severity Reaction Status Date / Time Sulfa (Sulfonamide Allergy Intermediate HIVES Verified 01/15/23 16:42 Antibiotics) Home Medications Medication Instructions Recorded Confirmed Type No Known Home Medications 04/11/21 01/15/23 History Patient History Medical History Alcohol dependence Stroke Tobacco abuse Surgical History H/O arthroscopic knee surgery H/O section Status post tubal ligation [place] teeth extracted Family History Father Diabetes Thyroid disease Unknown Esophageal cancer Myocardial infarction Hypertension Social History Smoking Status: Heavy tobacco smoker Tobacco Type: Cigarettes Cigarettes Per Day: 20; Second Hand Exposure: Yes; Do You Dip or Chew Tobacco: No; Tobacco Cessation Education Requested by Patient: No Hx Alcohol Use: Yes Alcohol type: beer Hx Substance Use: No Preferred Language: Bangladeshi Communication Ability: Effective Visual Impairment: No Limitations Hearing Ability: Normal Manager Beauty Required: No Beliefs That Will Affect Care: None marital status: Current Living Situation: Family Current Living Situation Comment: Lives at home with Son current occupational status: unemployed Other Information That Helps Us Care for You: No Feels Safe at Home: Yes Safety Concerns: Feels Safe At This Time Assistive Devices: None Review of Systems Review of Systems: All systems reviewed & are unremarkable except as noted in HPI & below Physical Exam Constitutional: WD/WN, vitals as above + disheveled, cooperative and comfortable; not in distress ENMT: Ears: no hearing impairment Mouth: + malodorous breath and + poor dentition Neck: trachea midline Respiratory: normal respiratory effort, lungs clear to auscultation Auscultation: + diminished lung sounds Cardiovascular: Rate/Rhythm: regular rate and regular rhythm Vessels: femoral pulses present, posterior tibial pulses present (+1), dorsalis pedis pulses present (+1) and radial pulses present; + abnormal peripheral pulses Extremities: normal capillary refill; no edema Gastrointestinal (Abdomen): Inspection/Auscultation: abdomen normal to inspection and normal bowel sounds Percussion/Palpation: abdomen soft; abdomen nontender Musculoskeletal: no cyanosis or clubbing, extremities motor strength 5/5 Skin: no rashes, warm and dry Neurologic: moves all extremities and awake; no focal motor deficits and not confused Psychiatric: A+Ox3, euthymic affect Results & Data Vital Signs (Past 12 Hours) Vital Signs Temp Pulse Pulse Resp BP BP Pulse Ox 01/16/23 06:02 77 01/16/23 07:27 36.3 C L 60 20 114/71 96 01/16/23 03:30 36.6 C 72 18 142/66 H 94 01/15/23 23:35 36.5 C 74 18 144/75 H 98 01/15/23 22:54 36.6 C 69 20 130/72 95 O2 Del Method 01/16/23 06:02 01/16/23 07:27 Room Air 01/16/23 03:30 Room Air 01/15/23 23:35 Room Air 01/15/23 22:54 Room Air
[2023-01-16] MEDS: CLOPIDOGREL BISULFATE 75 MG TAB PO SCH (12:08)
--- NOTE | 2023-01-16 14:02 | Pharmacy Report ---
- Date of Service January 16, 2023 - Pharmacy CVA/TIA Medication Review Medications to Prevent Stroke handout has been added to the patients discharge packet. Antiplatelet(s) * ASA 81mg PO daily * Clopidogrel 75mg PO daily Cholesterol * High intensity statin: atorvastatin 40 mg daily DVT Prophylaxis * SCD knee Therapeutic Anticoagulation * No history of Afib/Aflutter noted Type 2 Diabetes * Patient does not have T2DM (current HbA1c: 5.5%)
--- NOTE | 2023-01-16 15:03 | XCELERA ---
[id number] [id number]
--- NOTE | 2023-01-16 15:38 | Hospitalist Progress Note ---
Date of Service January 16, 2023 Assessment & Plan (1) Stroke-like symptoms: Plan: Ischemic left occipital CVA seen on brain MRI scan. Probable causes left ICA stenosis. Vascular surgery consultation appreciated. She will undergo TCAR of the left carotid artery at a later date. Neurology consultation appreciated. She is now on statin therapy and dual antiplatelet therapy. OT, PT, speech therapy consultations ordered. (2) Polycythemia: Plan: previously followed with Dr. Sandoval and would get regularly scheduled phlebotomies . Heme/onc consultation and recommendations appreciated. Continue outpatient follow-up (3) Hypertension: Plan: Permissive hypertension acutely. Initiate medical therapy if needed (4) Hyperlipidemia: Plan: Low-cholesterol diet. Statin therapy (5) Tobacco abuse: Plan: Smoking cessation counseling. Nicotine patches ordered while admitted Plan Anticipate discharge to home tomorrow, 01/17 Admission and Anticipated Discharge Date Admission Date: January 15, 2023 Subjective Alert and oriented. She does not appear to have any focal deficits. Brain MRI scan reveals ischemic left occipital CVA. Neurology consultation appreciated. Statin therapy and dual antiplatelet therapy recommended. Vascular surgery recommends eventual TCAR left carotid at a later date. Left ICA stenosis seen o n head and neck CTA. Cardiac echo report is pending. OT, PT, speech therapy consultations pending. Probably home tomorrow, January 17 Review of Systems Review of Systems: Constitutional-no fever or chills ENT-no blurred vision, no double vision, no epistaxis, no sore throat Respiratory-no cough, no wheezing, no shortness of breath Cardiac-no palpitations, no chest pain, no syncope GI-no nausea, vomiting, diarrhea, melena, hematochezia -no urinary retention, no urinary incontinence, no dysuria, no hematuria Musculoskeletal-no joint pain, no muscle tenderness Skin-no bruising, no rashes, no pruritus Neuro-no isolated weakness, no paresthesia, no weakness Psych-no depression, no anxiety Physical Exam Physical Exam: General-alert and oriented x3, no fevers, no chills HEENT-head atraumatic and normocephalic, pupils equal and reactive to light, extraocular muscles intact Neck-no lymphadenopathy or thyromegaly, trachea midline Chest-clear to auscultation percussion. No rales wheezing or rhonchi Cardiac-regular rate and rhythm, normal S1 and S2 Abdomen-normal bowel sounds, nontender, no hepatosplenomegaly Extremities-no cyanosis, clubbing, or edema Neuro-cranial nerves II through XII intact, motor and sensory function within normal limits, strength symmetrical , no focal deficits Psych-normal affect, normal mood Results & Data Results & Data Vital Signs (Past 12 Hours) Vital Signs Temp Pulse Pulse Resp BP Pulse Ox O2 Del Method 01/16/23 08:30 Room Air 01/16/23 11:23 36.4 C L 66 18 104/65 93 Room Air 01/16/23 06:02 77 01/16/23 07:27 36.3 C L 60 20 114/71 96 Room Air Laboratory Results 01/16/23 06:07 01/16/23 06:07 PG Care Time/CCT Total # of Minutes Spent Total Time Spent with Patient: Total time spent is greater than 50% in coordination of care (as documented) at patient's floor/unit and/or counseling patient: Coding Level of Care Code 72754 SUB INP/OBS CARE 3/50MIN Diagnoses Stroke-like symptoms R29.90 Polycythemia D75.1 Hypertension I10 Hypertension type: essential hypertension Hyperlipidemia E78.2 Hyperlipidemia type: mixed hyperlipidemia Tobacco abuse Z72.0 (3) Hypertension Hypertension type: essential hypertension Qualified Code(s): I10 - Essential (primary) hypertension (4) Hyperlipidemia Hyperlipidemia type: mixed hyperlipidemia Qualified Code(s): E78.2 - Mixed hyperlipidemia
--- NOTE | 2023-01-16 19:10 | Electrocardiogram Report ---
Test Reason : Blood Pressure : / mmHG Vent. Rate : 081 BPM Atrial Rate : 081 BPM P-R Int : 140 ms QRS Dur : 078 ms QT Int : 360 ms P-R-T Axes : 073 075 070 degrees QTc Int : 418 ms Poor data quality, interpretation may be adversely affected Normal sinus rhythm Possible Left atrial enlargement Nonspecific ST abnormality Abnormal ECG When compared with ECG of 29-MAR-2022 12:24, No significant change was found Confirmed by Jeremy Siddiqui ([id number]) on 01/16/2023 7:09:41 PM Referred By: REFERRED SELF Confirmed By:Jeremy Siddiqui
[2023-01-16] MEDS ORDERED: MELATONIN 3 MG TAB PO PRN (21:55)
--- NOTE | 2023-01-16 21:57 | Consultation ---
Date of Consultation January 16, 2023 Assessment & Plan (1) Erythrocytosis: First issue is her specific diagnosis. She does not have the JAK2 V617F mutation nor does she have mutations in exons 1214. That does not completely exclude the diagnosis of polycythemia vera and the historically low erythropoietin level suggests a potential autonomous proliferation but per the up-to-date algorithm, a firmer diagnosis would require marrow aspiration and biopsy with a clear pattern of panmyelosis with prominent erythroid proliferation and, ideally, specific demonstration of autonomously proliferating erythroid colonies in vitro. The literature on "JAK2 negative polycythemia" is unfortunately somewhat jumbled as it frequently incorporates secondary erythrocytosis patients into those groups despite what is probably a very different pathophysiology. There is also a subset of unusual congenital conditions such as alterations of the erythropoietin receptor and/or oxygen affinity patients. Several authors of such reviews actually suggest against cytoreduction though this conclusion is undoubtedly biased by a greater proportion of the patient's incorporated into their series having secondary erythrocytosis. It is thus difficult to recreation adviser whether we should specifically apply the aggressive hemoglobin/hematocrit targets used for JAK2 mutated polycythemia vera to a patient such as this. I am repeating her erythropoietin levels and as her situation stabilizes would certainly consider whether marrow aspiration biopsy would be important in helping us to better refine our understanding of her specific pathophysiology. In the meantime, we may want to "gently" try to reduce her hemoglobin levels somewhat though perhaps not necessarily aggressively all the way to 45% right away. We have to balance consideration for trying to achieve a lower hematocrit with the concerns that the phlebotomy itself in potentially shifting her blood pressure may lead to transient perfusion issues with her carotid stenosis whose ultimate repair may be delayed for a week or more. She at least does not have immediate instability, she is on dual antiplatelet therapy and statin therapy, and seems to be neurologically stabilizing. Anticipating discharge tomorrow, we will try to coordinate low-volume phlebotomies as an outpatient. Only if/when we are more assured of her pathophysiology with a combination of marrow and follow-up erythropoietin levels might we consider whether hydroxyurea is an alternative to phlebotomy. If she does indeed have polycythemia vera rather than reactive erythrocytosis, she is higher risk given the episodes of thrombosis and her age over 60 and aggressive count control may be worth (2) Left carotid stenosis: Would certainly approach her aggressively with a combination of appropriate antiplatelet therapy and early structural intervention independent of her ultimate pathophysiology for her erythrocytosis (3) Tobacco abuse: Needs aggressive efforts at tobacco cessation as what ever else may be contributing to her erythrocytosis, tobacco use both exacerbates that and increases her thrombosis risk Plan 1. Do not want to haq to phlebotomy as excessive volume shifts may lead to alterations in blood pressure and possible impact on cerebral blood flow. If she remains medically stable and is discharged we will work on coordinating a "gentle" outpatient regimen of low-volume phlebotomies to try to move generally in the direction of hematocrits in the 45 to 50% range for now 2. Especially when she has had more definitive intervention for her carotid artery, consider marrow aspiration and biopsy to better understand her overall disease state. If we can more convincingly demonstrate the equivalent of a polycythemia vera autonomous proliferation of erythrocytes may want to consider hydroxyurea as an alternative to phlebotomy for long-term control 3. Should continue with appropriate antiplatelet therapy and ultimate structural intervention for the carotid stenosis 4. Should work aggressively on tobacco cessation History of Present Illness Reason for Consultation: Patient with a history of erythrocytosis presents with left internal carotid artery stenosis and probable CVA. Attending Physician: Marcel Rasmussen MD History of Present Illness Longtime smoker of 1 pack/day originally seen by our group in August, after a CVA that had resulted in left lower extremity weakness that was associated with erythrocytosis with hemoglobin levels of 20 g/dL and hematocrit of 60%. Work-up at that time included erythropoietin levels which were low, screens for a JAK2 V6 17F and exon 1214 mutations neither of which were detected. She did not have marrow aspiration and biopsy. Conclusion at that time was of a "secondary polycythemia" and she was treated with phlebotomy. With weekly aliquots of 500 mL removed she was quickly brought down to hematocrits in the 45% range in the first half of 2019. She missed 2 appointments in the second half that year with a moderate rise in her hematocrits to the mid 50% ranges but then with resumption of more consistent phlebotomy in 2020 once again came under reasonably good control. However, she was last seen by our team 06/28/2021 and was no-show for subsequent appointments. Currently she feels relatively well and is looking forward to going home tomorrow Allergies Allergy/AdvReac Type Severity Reaction Status Date / Time Sulfa (Sulfonamide Allergy Intermediate HIVES Verified 01/15/23 16:42 Antibiotics) Home Medications Medication Instructions Recorded Confirmed Type No Known Home Medications 04/11/21 01/15/23 History Patient History Medical History Alcohol dependence Stroke Tobacco abuse Surgical History H/O arthroscopic knee surgery H/O section Status post tubal ligation [place] teeth extracted Family History Father Diabetes Thyroid disease Unknown Esophageal cancer Myocardial infarction Hypertension Social History Smoking Status: Heavy tobacco smoker Tobacco Type: Cigarettes Cigarettes Per Day: 20; Second Hand Exposure: Yes; Do You Dip or Chew Tobacco: No; Tobacco Cessation Education Requested by Patient: No Hx Alcohol Use: Yes Alcohol type: beer Hx Substance Use: No Preferred Language: Occitan Communication Ability: Effective Visual Impairment: No Limitations Hearing Ability: Normal Rail Switchman Required: No Beliefs That Will Affect Care: None marital status: Current Living Situation: Family Current Living Situation Comment: Lives at home with Son current occupational status: unemployed Other Information That Helps Us Care for You: No Feels Safe at Home: Yes Safety Concerns: Feels Safe At This Time Assistive Devices: None Physical Exam Physical Exam: Vital signs are stable and she is oxygenating well on room air. She is alert, fluent, seems appropriate though there may be some subtle cognitive changes. She is moving all 4 extremities well but seems to have some mild weakness and clumsiness in the left hand. Lung heart and abdominal examination seems stable Results & Data Vital Signs (Past 12 Hours) Vital Signs Temp Pulse Pulse Resp BP Pulse Ox O2 Del Method 01/16/23 19:38 36.6 C 80 20 115/70 96 Room Air 01/16/23 14:47 80 01/16/23 16:36 36.8 C 67 20 117/71 92 Room Air 01/16/23 11:23 36.4 C L 66 18 104/65 93 Room Air PG Care Time/CCT Total # of Minutes Spent Total Time Spent with Patient: Total time spent is greater than 50% in coordination of care (as documented) at patient's floor/unit and/or counseling patient: Coding Level of Care Code 91936 IN/OBS CONSULT LVL 4,60M History Expanded Problem Focused Exam Expanded Problem Focused Medical Decision Making High Complexity Diagnoses Erythrocytosis D75.1 Left carotid stenosis I65.22 Tobacco abuse Z72.0
[2023-01-17 07:01] LABS: Basophils # (auto) 0.05 K/uL (0-0.2); Basophils % (auto) 0.6 %; Eosinophils # (auto) 0.15 K/uL (0-0.50); Eosinophils % (auto) 1.9 %; Hematocrit (blood only) 53.6 % (37.0-47.0); Hemoglobin 18.4 g/dl (12.0-16.0); Immature Granulocytes # (auto) 0.02 K/uL (0.01-0.20); Immature Granulocytes % (auto) 0.2 %; Lymphocytes # (auto) 2.64 K/uL (1.2-3.4); Lymphocytes % (auto) 32.8 %; Mean Corpuscular Hemoglobin 30.8 pg (25.0-34.0); Mean Corpuscular Hgb Conc 34.3 g/dL (32.0-36.0); Mean Corpuscular Volume 89.6 fL (80.0-100.0); Mean Platelet Volume 10.5 fL (9.4-12.4); Monocytes # (auto) 0.57 K/uL (0.11-0.59); Monocytes % (auto) 7.1 %; Neutrophils # (auto) 4.63 K/uL (1.40-6.50); Neutrophils % (auto) 57.4 %; Platelet Count 200 K/uL (130-400); RDW Coefficient of Variation 14.2 % (11.5-14.5); RDW Standard Deviation 46.1 fL (36.4-46.3); Red Blood Count 5.98 M/uL (4.20-5.40); White Blood Count 8.06 K/ul (4.8-10.8)
[2023-01-17 07:27] LABS: INR 1.1 (0.9-1.1); Prothrombin Time 11.8 Seconds (9.0-12.0)
[2023-01-17 07:34] LABS: Albumin Globulin Ratio 1.7 (0.9-2); Albumin Level 3.9 gm/dl (3.4-5.0); BUN Creatinine Ratio 20.7 (10-20); Bilirubin,Total 0.6 mg/dl (0.2-1.0); Calcium 9.1 mg/dl (8.6-10.3); Creatinine Clr Calc Pharmacy 83.5 ml/min; Est GFR (African American) 114.5 ml/min; Est GFR (Non-African American) 98.8 ml/min; Globulin 2.3 gm/dl (2.5-4.0); Magnesium 1.7 mg/dl (1.7-2.4); Potassium 3.9 mmol/L (3.5-5.1); Total Protein 6.2 gm/dl (6.0-8.3)
[2023-01-17] MEDS: ASPIRIN 81 MG ECTAB PO SCH (09:00)
[2023-01-17] MEDS: CLOPIDOGREL BISULFATE 75 MG TAB PO SCH (09:00)
[2023-01-17] MEDS: ATORVASTATIN 40 MG TAB PO SCH (09:00)
[2023-01-17] MEDS: NICOTINE 21 MG/24 HR TDSY TD SCH (09:00)
--- NOTE | 2023-01-17 11:58 | Discharge Summary ---
Date of Service January 17, 2023 Admission HPI Per Admitting Provider Leisa is a 62 year old female with a PMH significant for multiple previous CVA's, latest in 2019, tobacco abuse, polycythemia (has followed with hematology in the past) who presented to the [facility] ED on 01/15/23 due to stroke-like symptoms. In the ED the patient was found to be hypertensive at 195/83, afebrile, and stable on RA. Labs were significant for a Hgb of 19.5, Hct of 57, platelets of 202, negative alcohol level and covid [address] of the head wo con was read as "1. No acute intracranial hemorrhage, midline shift or acute territorial infarct. 2. Involutional changes with chronic microvascular ischemic disease. 3. Ill-defined subcentimeter hypodense foci within the left frontal lobe centrum semiovale ovale are new from 04/11/2021 suggestive of age-indeterminate small infarcts. 4. Chronic infarcts as above.". CTA of the head/neck was read as "1. Atherosclerotic plaque of the left greater than right carotid bulbs with less than 50% stenosis of the right ICA and high-grade stenosis of the proximal cerv ical segment left ICA. 2. Multifocal high-grade stenoses throughout the right vertebral artery with focal high-grade stenosis of the right posterior cerebral artery. 3. 60% stenosis of the proximal left subclavian artery.". Per the ED staff, [facility] did not recommend TNK but did recommend aspirin and a statin. Prior to admission the patient was given 324 mg PO aspirin and 1 bag IV magnesium-sulfate. At the time of the exam the patient was lying in bed in no acute distress with her family sitting bedside. She states that she started to develop right eye pain last evening but denies any changes in vision. She was at work earlier today when she started to experience left arm paresthesias and weakness, prompting her to come to the ED. At the time of the exam she states that her pa resthesias have resolved but she is still experiencing 4/10 right eye pain without vision changes. She denies current headache, changes in vision, hearing, taste and smell, chest pain, SOB, abd pain, nausea, vomiting, diarrhea, dysuria, hematuria, melena, LE swelling, ambulatory dysfunction, and recent falls/trauma. When discussing her history of Polycythemia, she and her family explain that she previously followed with Dr. Sandoval of Hematology and would have regular phlebotomy appointments. She states that she stopped going approximately 7-8 months ago as she thought she was told she was better. Her family explains that they stated she was improving but never said to stop coming. She is still smoking approximately 1 PPD despite her previous CVA's and stopped taking aspirin and her statin because she didn't think they were helping. I explained that she cannot stop phlebotomies entirely as they are very important for those with polycythemia and could lead to further complications if she continues to not go. I stressed the importance of smoking cessation and continuing medications such as aspirin and a statin to help prevent recurrent strokes. Please refer to Dr. Antonio's attestation for any changes to the treatment plan Principal Diagnosis Ischemic left occipital CVA, left ICA stenosis Discharge Exam General-alert and oriented x3, no fevers, no chills HEENT-head atraumatic and normocephalic, pupils equal and reactive to light, extraocular muscles intact Neck-no lymphadenopathy or thyromegaly, trachea midline Chest-clear to auscultation percussion. No rales wheezing or rhonchi Cardiac-regular rate and rhythm, normal S1 and S2 Abdomen-normal bowel sounds, nontender, no hepatosplenomegaly Extremities-no cyanosis, clubbing, or edema Neuro-cranial nerves II through XII intact, motor and sensory function within normal limits, strength symmetrical , no focal deficits Psych-normal affect, normal mood Discharge Data Allergies Allergy/AdvReac Type Severity Reaction Status Date / Time Sulfa (Sulfonamide Allergy Intermediate HIVES Verified 01/15/23 16:42 Antibiotics) Consultations 01/15/23 17:36 ED Decision to Admit Stat 01/15/23 18:51 Consult Hematology Routine 01/15/23 19:54 Consult Vascular Surgery Routine 01/16/23 08:25 Consult Neurology Routine Ordered Studies 01/15/23 16:22 CT head/brain wo con Stat 01/15/23 16:26 CT angio head w con Stat CT angio neck with con Stat 01/15/23 18:54 MRI Brain [MR brain wo con] Urgent Hospital Course (1) Stroke-like symptoms: Ischemic left occipital CVA seen on brain MRI scan. Probable cause is left ICA stenosis. Vascular surgery consultation appreciated. She will undergo TCAR of the left carotid artery at a later date. Neurology consultation appreciated. She is now on statin therapy and dual antiplatelet therapy. OT, PT, speech therapy consultations noted (2) Polycythemia: previously followed with Dr. Sandoval and would get regularly scheduled phlebotomies . Heme/onc consultation and recommendations appreciated. Continue outpatient follow-up (3) Hypertension: Permissive hypertension acutely. Initiate medical therapy if needed (4) Hyperlipidemia: Low-cholesterol diet. Statin therapy (5) Tobacco abuse: Smoking cessation counseling. Nicotine patches ordered while admitted Plan Discharge to home today, 01/17 . She will follow-up with vascular surgery for scheduling of left TCAR Total Time Total Time Spent Total Time Spent (In Minutes): 40 minutes Discharge Plan Discharge Items Patient Disposition: Home - Home Health Services Reason For Visit: STROKE SYMPTOMS Discharge Diagnosis: Ischemic left occipital CVA, left internal carotid stenosis Activity: Resume your previous activity Non-emergency contact: Primary Care Provider Call non-emergency contact if: you have any medication questions and your symptoms worsen Follow-up/Referrals: Jonny Hendrix MD [Physician] - (You have two upcoming appts scheduled at the [facility]: 01/23/23 @ 3:00pm - This appt will be with phlebotomy 01/30/23 @ 1:20pm - This appt will be with Dr Hendrix and then followed with phlebotomy directly after) Huber Allen MD [Physician] - 01/24/23 10:30 am PCP,NO [Primary Care Provider] - Diet: Regular and Heart Healthy Addtl Attending Provider Instructions: Take medications as directed, follow-up with vascular surgery, Dr. Allen, for necessary procedure for left carotid artery stenosis Pending Studies at Discharge: No Stand-Alone Forms: My [facility] [employer], Smoking Cessation, Medications to Prevent Stroke Medications and DC Order Prescriptions: New atorvastatin 40 mg Tablet 40 mg PO QAM Qty: 30 0RF clopidogrel 75 mg Tablet 75 mg PO QAM Qty: 30 0RF aspirin 81 mg Tablet,Delayed Release (Dr/Ec) 81 mg PO DAILY Qty: 0 0RF No Action No Known Home Medications Discharge Orders: Discharge Order (Routine); Ordered 01/17/23 Ordered By: Marcel Rasmussen Admission Data Admit Date/Time: 01/15/23 18:29 Attending Provider: Marcel Rasmussen Admit Provider: Cuco Antonio Primary Care Provider: PCP,NO Other Providers: Cuco Antonio ; Jonny Hendrix ; Beto Bauer ; Huber Allen [facility] Coding Level of Care Code 70635 INP/OBS DISCH >30 MIN Diagnoses Stroke-like symptoms R29.90 Polycythemia D75.1 Hypertension I10 Hypertension type: essential hypertension Hyperlipidemia E78.2 Hyperlipidemia type: mixed hyperlipidemia Tobacco abuse Z72.0 Home Health Attestation I certify that this patient is under my care and that I, or a physicians technical support assistant working with me, had a face to-face encounter that meets the home health [id number] encounter requirements with this patient. The encounter with the patient was in whole, or in part, for the following medical condition, which is the primary reason for home health care (list medical condition): stroke I certify that, based on my findings, the following services are medically necessary home health services: My clinical findings support the need for the above services because: OT Assess ADL Status and Restore Function w ADLs PT Assessment for Endurance / Balance / Strength PT Eval for Safety and Mobility PT Eval for Safety, Gait Training, Assistive Devices PT Gait and Balance Training, Strengthening and Safety Further, I certify that my clinical findings support that this patient is homebound (i.e. absences from home require considerable and taxing effort and are for medical reasons or yazdanism services or infrequently or of short duration when for other reasons) because: Transportation Assistance/Unable to Leave Home Unassisted Certification for Home Health Services: Based on the above findings, I certify that this patient is confined to the home and needs intermittent snf care, physical therapy and/or speech therapy or continues to need occupational therapy. The patient is under my care, and I have initiated the establishment of the plan of care. This patient will be followed by a physician who will periodically review the plan of care.
[2023-01-17] MEDS ORDERED: STROKE PATIENT DISCHARGE STA (12:01)
== END 2023-01-17 12:40 | disposition home health service (06) | DRG 66 ==
LOC: ED 16:11 → SUATTDRO 18:29 → 2S 18:29
DX: E78.5 Hyperlipidemia, unspecified; R29.702 NIHSS score 2; Z83.3 Family history of diabetes mellitus; D75.1 Secondary polycythemia; Z86.73 Personal history of transient ischemic attack (TIA), and cerebral infarction without residual deficits; Z91.199 Patient's noncompliance with other medical treatment and regimen due to unspecified reason; I63.232 Cerebral infarction due to unspecified occlusion or stenosis of left carotid arteries; I10 Essential (primary) hypertension; F17.210 Nicotine dependence, cigarettes, uncomplicated; I65.01 Occlusion and stenosis of right vertebral artery; Z88.2 Allergy status to sulfonamides

== ENCOUNTER 2023-02-14 10:01 | Inpatient (IN) ==
--- NOTE | 2023-02-06 14:53 | Anesthesiology Consultation ---
Date of Service February 06, 2023 Assessment & Plan (1) Encounter for pre-operative examination: - PCP 01/29/23 [place]: "...suggest waiting until after this procedure for patient to do the 30 day holter monitor as recommend by neurology...will reach out to Dr. Hendrix to see where he is at with coordinating low volume phlebotomy sessions for her- plan for bone marrow biopsy after she has carotid taken care of..." - discharge summary 01/15/23 [place]: "...Stroke-like symptoms: Ischemic left occipital CVA seen on brain MRI scan. Probable cause is left ICA stenosis. Vascular surgery consultation appreciated. She will undergo TCAR of the left carotid artery at a later date. Neurology consultation appreciated. She is now on statin therapy and dual antiplatelet therapy...Polycythemia: previously followed with Dr. Sandoval and would get regularly scheduled phlebotomies..." - COVID screening: Per junior accounting clerk on 02/06/2023: Travel screen negative, no known COVID-19 positive contacts or current COVID-19 related symptoms in past 2 weeks. To surgeon's discretion if preop COVID testing is needed. Chart Review Chart Review: Acceptable Risk for Surgery and Patient NOT seen in Pre Admission Testing History Surgery Operation Date: 02/14/23 09:10 Proposed Procedures p Left Transcarotid Artery Revascularization - Huber Allen MD Height/Weight Height: 5 ft 5.5 in Weight: 51.71 kg Allergies Allergy/AdvReac Type Severity Reaction Status Date / Time Sulfa (Sulfonamide Allergy Intermediate HIVES Verified 02/06/23 14:07 Antibiotics) Medications Home Medications Medication Instructions Recorded Confirmed Last Taken atorvastatin 40 mg tablet 40 mg PO QAM #30 tabs 01/17/23 02/06/23 Unknown clopidogrel 75 mg tablet 75 mg PO QAM #30 tabs 01/17/23 02/06/23 Unknown aspirin 81 mg tablet,delayed 81 mg PO QAM 02/06/23 02/06/23 Unknown release Past Medical History Medical History Alcohol dependence Erythrocytosis History of COVID-19 NOTED IN "ACTIVE PROBLEM LIST" IN [facility] CHART>PT DENIES HAVING COVID STATING "THAT WHEN SHE WAS AT THE HOSPITAL LAST YEAR THEY TOLD HER SHE HAD COVID, BUT I DON'T BELIEVE I DID." Hyperlipidemia Left carotid stenosis Polycythemia Stroke 01/15/23, hospitalized at [facility], d/c on 01/17/23; left arm and hand numbness, lt foot was "tingling"; f/u Dr. Allen, [facility]>no residual symptoms Tobacco abuse Past Family History Family History Father Diabetes Thyroid disease Unknown Esophageal cancer Myocardial infarction Hypertension Past Surgical History Surgical History H/O arthroscopic knee surgery H/O section Hx of colonoscopy Hx of nasal septoplasty Status post tubal ligation [place] teeth extracted Social History Smoking Status: Current every day smoker tobacco type: cigarettes Smoking cigarettes per day: 10 Do You Dip or Chew Tobacco: No Hx Alcohol Use: Yes Alcohol type: beer alcohol intake frequency: other Alcohol Intake Frequency Comment: 3 PER DAY Hx Substance Use: No substance use type: does not use Lab Results Anesthesia Preop Results Results Anesthesia Widget: WBC 8.06 K/ul (4.8-10.8) 01/17/23 Hgb 18.4 g/dl (12.0-16.0) H 01/17/23 Hct 53.6 % (37.0-47.0) H 01/17/23 Plt 200 K/uL (130-400) 01/17/23 Na 140 mmol/L (136-145) 01/17/23 K 3.9 mmol/L (3.5-5.1) 01/17/23 Cl 109 mmol/L (98-107) H 01/17/23 CO2 24 mmol/L (21-32) 01/17/23 BUN 12 mg/dl (6-23) 01/17/23 Creat 0.58 mg/dl (0.6-1.2) L 01/17/23 Glucose Level 96 mg/dl (70-99(Fasting)) 01/17/23 PT 11.8 Seconds (9.0-12.0) 01/17/23 PTT 26.1 Seconds (21.0-31.0) 01/15/23 INR 1.1 (0.9-1.1) 01/17/23 HA1c 5.5 % (4.5-5.6) 01/16/23 SARS-CoV-2, RNA, NAAT NEGATIVE (NEGATIVE) 01/15/23 Testing Electrocardiogram Date: 01/15/23 Poor data quality NSR, rate 81 bpm Possible LA enlargement Nonspecific ST abnormality Chest X-Ray Date: 01/15/23 *1view* No acute process Echocardiogram Date: 01/16/23 EF 55-60% Normal Lv wall motion Mild aortic regurgitation Mild mitral regurgitation Mild tricuspid regurgitation Other Testing Brain MRI 01/15/23 1. Acute to subacute small left occipital lobe infarctions. 2. Global parenchymal volume loss with chronic microvascular ischemic changes as well as chronic bilateral cerebral hemisphere and cerebellum infarctions. Head and neck CTA 01/15/23 1. Atherosclerotic plaque of the left greater than right carotid bulbs with less than 50% stenosis of the right ICA and high-grade stenosis of the proximal cervical segment left ICA. 2. Multifocal high-grade stenoses throughout the right vertebral artery with focal high-grade stenosis of the right posterior cerebral artery. 3. 60% stenosis of the proximal left subclavian artery. Consulted vascular surgery requested an addendum for an exact percent stenosis of the proximal cervical segment left ICA which was referred in the body of the report of greater than 70%. While this is true, the exact percentage is appro ximately 90%. Head CT 01/15/23 1. No acute intracranial hemorrhage, midline shift or acute territorial infarct. 2. Involutional changes with chronic microvascular ischemic disease. 3. Ill-defined subcentimeter hypodense foci within the left frontal lobe centrum semiovale ovale are new from 04/11/2021 suggestive of age-indeterminate small infarcts. 4. Chronic infarcts as above. Chest CTA 03/29/22 1. No CTA evidence for pulmonary embolus. 2. No acute chest disease. 3. There is prominent breathing motion artifact present. Abdomen pelvis CT 03/29/22 1. Diverticulosis without evidence for diverticulitis. 2. Otherwise, no acute intra-abdominal or pelvic abnormality on these limited noncontrast images. 3. Additional nonacute findings are delineated above.
--- NOTE | 2023-02-14 07:18 | History & Physical Report ---
Date of Service February 14, 2023 History of Present Illness Primary Care Provider: Yeny Flores MD January 16, 2023 Assessment & Plan (1) Left carotid stenosis: Pt with severe stenosis of her L ICA on CTA, and multiple areas of infarct on her brain MRI. Pt also seen by Dr Allen today. Recommends pt consider surgical intervention to reduce risk of further CVA. Carotid endarterectomy vs TCAR were both discussed with pt in detail, including the requirement of daily ASA, statin, and plavix medication for 1 year post TCAR. She is leaning toward TCAR. She would like to discuss with her family and then come to office in 1 week to discuss further and schedule procedure. ASA and atorvastatin have already been initiated, will add daily clopidogrel 75mg. She will need to be taking all three when she is discharged in preparation for TCAR. Also ordered echocardiogram for preop eval. Our office will call pt to schedule next week in office. Pt is agreeable to this plan. Patient was seen, examined, and chart reviewed. Agree with exam and treatment plan of the Vascular PA. History of Present Illness Reason for Consultation: carotid stenosis Attending Physician: Marcel Rasmussen MD History of Present Illness 62 yo f with hx of HTN, prior CVA, polycythemia, and longstanding hx of heavy smoking, admitted with strokelike sx, seen in consultation today for L ICA stenosis noted on CTA neck. Pt is a very poor historian. She states that she had R eye vision changes and some L hand tingling prior to arrival here yesterday, but cannot state how long the sx were present before they resolved. Does not remember having similar sx in past. Also states she has had a "strange" way of walking for many years. Review of charts from previous admissions in 2019 for strokelike sx indicate that she had some chronic weakness in her L hand and cognitive problems d/t remote hx of CVA. Pt states she does not see a physician regularly and stopped taking all of her medications because she "doesn't like taking medications." She smokes at least 1 PPD and does drink beer daily as well. Pt denies any sx presently, including amaurosis, unilateral extremity weakness or numbness, difficulty speaking or swallowing, facial droop. Also denies BUTTS, syncope, chest pain, palpitations, abd pain, N/V, rest pain, claudication, discoloration of toes, other complaints. CTA neck demonstrates L ICA stenosis of 90%, vertebral artery disease, and L subclavian artery stenosis. Allergies Allergy/AdvReac Type Severity Reaction Status Date / Time Sulfa (Sulfonamide Allergy Intermediate HIVES Verified 01/15/23 16:42 Antibiotics) Home Medications Medication Instructions Recorded Confirmed Type No Known Home Medications 04/11/21 01/15/23 History Patient History Medical History Alcohol dependence Stroke Tobacco abuse Surgical History H/O arthroscopic knee surgery H/O section Status post tubal ligation [place] teeth extracted Family History Father Diabetes Thyroid diseaseUnknown Esophageal cancer Myocardial infarction Hypertension Social History Smoking Status: Heavy tobacco smoker Tobacco Type: Cigarettes Cigarettes Per Day: 20; Second Hand Exposure: Yes; Do You Dip or Chew Tobacco: No; Tobacco Cessation Education Requested by Patient: No Hx Alcohol Use: Yes Alcohol type: beer Hx Substance Use: No Preferred Language: Ugandan Communication Ability: Effective Visual Impairment: No Limitations Hearing Ability: Normal Satellite Dish Repairer Required: No Beliefs That Will Affect Care: None marital status: Current Living Situation: Family Current Living Situation Comment: Lives at home with Son current occupational status: unemployed Other Information That Helps Us Care for You: No Feels Safe at Home: Yes Safety Concerns: Feels Safe At This Time Assistive Devices: None Review of Systems Review of Systems: All systems reviewed & are unremarkable except as noted in HPI & below Physical Exam Constitutional: WD/WN, vitals as above + disheveled, cooperative and comfortable; not in distress ENMT: Ears: no hearing impairment Mouth: + malodorous breath and + poor dentition Neck: trachea midline Respiratory: normal respiratory effort, lungs clear to auscultation Auscult ation: + diminished lung sounds Cardiovascular: Rate/Rhythm: regular rate and regular rhythm Vessels: femoral pulses present, posterior tibial pulses present (+1), dorsalis pedis pulses present (+1) and radial pulses present; + abnormal peripheral pulses Extremities: normal capillary refill; no edema Gastrointestinal (Abdomen): Inspection/Auscultation: abdomen normal to inspection and normal bowel sounds Percussion/Palpation: abdomen soft; abdomen nontender Musculoskeletal: no cyanosis or clubbing, extremities motor strength 5/5 Skin: no rashes, warm and dry Neurologic: moves all extremities and awake; no focal motor deficits and not confused Psychiatric: A+Ox3, euthymic affect Results & Data Vital Signs (Past 12 Hours) Vital Signs Temp Pulse Pulse Resp BP BP Pulse Ox 01/16/23 06:02 77 01/16/23 07:27 36.3 C L 60 20 114/71 96 01/16/23 03:30 36.6 C 72 18 142/66 H 94 01/15/23 23:35 36.5 C 74 18 144/75 H 98 01/15/23 22:54 36.6 C 69 20 130/72 95 O2 Del Method 01/16/23 06:02 01/16/23 07:27 Room Air 01/16/23 03:30 Room Air 01/15/23 23:35 Room Air 01/15/23 22:54 Room Air Signed By: <Electronically signed by Jaylin Dorantes PA-C> 01/16/23 1108 <Electronically signed by Huber Allen MD> 01/17/23 1144 Created:01/16/23 1051 The status of this report isSigned. Draft = Not yet reviewed or approved by Medical Physician. Signed = Reviewed and approved by Medical Physician. Allergies Allergy/AdvReac Type Severity Reaction Status Date / Time Sulfa (Sulfonamide Allergy Intermediate HIVES Verified 02/06/23 14:07 Antibiotics) Home Medications Medication Instructions Recorded Confirmed Type atorvastatin 40 mg tablet 40 mg PO QAM #30 tabs 01/17/23 02/06/23 Rx clopidogrel 75 mg tablet 75 mg PO QAM #30 tabs 01/17/23 02/06/23 Rx aspirin 81 mg tablet,delayed 81 mg PO QAM 02/06/23 02/06/23 History release Past Med/Surg History Medical History Alcohol dependence Erythrocytosis History of COVID-19 NOTED IN "ACTIVE PROBLEM LIST" IN [facility] CHART>PT DENIES HAVING COVID STATING "THAT WHEN SHE WAS AT THE HOSPITAL LAST YEAR THEY TOLD HER SHE HAD COVID, BUT I DON'T BELIEVE I DID." Hyperlipidemia Left carotid stenosis Polycythemia Stroke 01/15/23, hospitalized at [facility], d/c on 01/17/23; left arm and hand numbness, lt foot was "tingling"; f/u Dr. Allen, [facility]>no residual symptoms Tobacco abuse Surgical History H/O arthroscopic knee surgery H/O section Hx of colonoscopy Hx of nasal septoplasty Status post tubal ligation [place] teeth extracted Family History Father Diabetes Thyroid disease Unknown Esophageal cancer Myocardial infarction Hypertension Social History Smoking Status: Current every day smoker Tobacco Type: Cigarettes Cigarettes Per Day: 10; Second Hand Exposure: No; Do You Dip or Chew Tobacco: No; Tobacco Cessation Education Requested by Patient: No Hx Alcohol Use: Yes Alcohol type: beer Hx Substance Use: No Preferred Language: Ugandan Communication Ability: Effective Visual Impairment: No Limitations Hearing Ability: Normal Satellite Dish Repairer Required: No Beliefs That Will Affect Care: None marital status: Current Living Situation: Spouse and Family Current Living Situation Comment: Lives at home with Son current occupational status: unemployed Other Information That Helps Us Care for You: No Feels Safe at Home: Yes Safety Concerns: Feels Safe At This Time Assistive Devices: Glasses Assistive Devices Comment: GLASSES PRN
[~2023-02-14 10:01] MED LIST: LACTATED RINGER'S 1,000 ML IV SCH; ceFAZolin 2000MG 2,000 MG/15 ML SYR IV SCH
[2023-02-14] MEDS ORDERED: ROCURONIUM BROMIDE 10 MG/ML 5 ML VIAL IV ONE (10:32)
[2023-02-14] MEDS ORDERED: HEPARIN SOD (PORCINE) 1000 UNIT/ML ONE (10:32)
[2023-02-14] MEDS ORDERED: PHENYLEPHRINE HCL 10 MG/ML VIAL ONE (10:32)
[2023-02-14] MEDS ORDERED: SUGAMMADEX SODIUM 200 MG/2 ML VIAL IV ONE (10:32)
[2023-02-14] MEDS ORDERED: DEXAMETHASONE SOD INJ 4 MG/ML VIAL ONE (10:32)
[2023-02-14] MEDS ORDERED: PROPOFOL IV EMULSION 10 MG/ML 20 ML VIAL IV ONE (10:32)
[2023-02-14] MEDS ORDERED: ONDANSETRON INJ 2 MG/ML 2 ML VIAL ONE (10:32)
[2023-02-14] MEDS ORDERED: fentaNYL citrate PF 100 MCG/2 ML VIAL ONE ×2 (10:32→13:40)
--- NOTE | 2023-02-14 11:46 | History & Physical Bridge Note ---
Date of Service February 14, 2023 History & Physical Bridge Note I have examined the patient, reviewed the History & Physical and in the interval since the performance of the History & Physical I have noted the following changes of clinical significance: no changes noted
[2023-02-14] MEDS ORDERED: BUPIVACAINE/EPINEPHRINE 0.5% MPF 1:200,000 30 ML VIAL ONE (12:06)
[2023-02-14] MEDS ORDERED: GELATIN SPONGE SZ 100 ONE (12:06)
[2023-02-14] MEDS ORDERED: THROMBIN FOR SOLN 20000 UNIT KIT ONE (12:06)
[2023-02-14] MEDS ORDERED: ceFAZolin 330 MG/ML 1 GM VIAL ONE (12:06)
[2023-02-14] MEDS ORDERED: VISIPAQUE IV ONE (12:53)
[2023-02-14] MEDS ORDERED: ONDANSETRON INJ 2 MG/ML 2 ML VIAL IV PRN (12:56)
[2023-02-14] MEDS ORDERED: fentaNYL citrate PF 100 MCG/2 ML VIAL IV PRN (12:56)
[2023-02-14] MEDS ORDERED: HYDROmorphone INJ 2 MG/ML SYR/VIAL IV PRN (12:56)
[2023-02-14] MEDS ORDERED: ATROPINE SULFATE 0.1 MG/ML 10ML SYR IV PRN (12:56)
[2023-02-14] MEDS ORDERED: ePHEDrine sulfate 50 MG/ML AMP IV PRN (12:56)
[2023-02-14] MEDS ORDERED: PROMETHAZINE HCL 12.5 MG in SODIUM CHLORIDE 0.9% 50 ML IV PRN (12:56)
[2023-02-14] MEDS ORDERED: PHENYLEPHRINE/NSS 25 MG/250 ML BAG IV SCH (12:58)
[2023-02-14] MEDS ORDERED: STAT IV Infusion **Titration per Protocol STA (12:58)
[2023-02-14] MEDS ORDERED: SURGICEL ABSORB HEMOSTAT 2IN X 14IN TOP ONE (13:32)
[2023-02-14] MEDS ORDERED: ARISTA ABSORBABLE HEMOSTAT 3GM TOP ONE (13:52)
--- NOTE | 2023-02-14 13:54 | Procedure Note ---
Angiogram Post Procedure Fluoroscopy Time (minutes): 6.3 Radiation (mGy): 11.7 Contrast: 18 Post Operative Report Pre & Post Diagnosis Operation Date: 02/14/23 12:10 Pre-Op Diagnosis: Left Internal Carotid Artery Stenosis Post-Op Diagnosis: Left Internal Carotid Artery Stenosis I identified the patient and participated in the time-out.: Yes Procedure Operation Date: 02/14/23 12:10 Actual Procedures p Left Transcarotid Artery Revascularization, ultrasound right common femoral vein - Huber Allen MD Surgeon Huber Allen MD Administrative Supervisor Mariam,PAC Estimated Blood Loss 15 Findings Consistent with Post-Op Diagnosis Specimens none Anesthesia Type General Complications none Disposition Accompanied Patient To Recovery: No Disposition: Recovery Room Indications This is a 62-year-old female who was admitted to the hospital with symptoms transischemic attacks. She was seen by neurology was impression was symptomatic left internal carotid artery stenosis. Intervention was recommended. We went over the risks options and benefits of TCAR versus carotid endarterectomy she is elected to go ahead with a TCAR procedure. I have discussed the risks options and benefits of the procedure with the patient. The patient understands the risks options and benefits and agrees to the procedur Description of Procedure The patient was taken to the operating room and placed in supine position. After general anesthesia was accomplished the groins and left side of the neck and chest were prepped and draped in a sterile manner. Timeout was performed and the patient was identified. A transverse incision was made just above the clavicle between the heads of the sternocleidomastoid. This is carried down to where the common carotid artery was identified. It was isolated. It was slung with umbilical tape. Next the U stitch was placed in the common carotid artery with a 5-0 Prolene suture. Patient was given 6000 heparin at that time. Ultrasound was then used to localize the right common femoral vein. The vein was patent and compressed easily. Under ultrasound guidance the right common femoral vein was punctured and the venous sheath was inserted. This was aspirated and flushed with heparinized saline. ACT at that time was 418. Using micropuncture technique the common carotid artery was punctured. The micro sheath was inserted to 2.5 cm using a tunneling technique.. Injection was then done showing the bifurcation. There was a significant lesion seen at the origin of the internal carotid artery on the left side. We then inserted the J-wire and left it short of the lesion. The micro sheath was removed and the TCAR sheath was inserted. Once it was in place and held against the artery it was sutured to the chest wall and the incision edge. We then flushed the tubing appropriately. The venous return to was clamped onto the TCAR sheath. It was flushed through and then attached to the venous inflow sheath in the left groin. Sheath was checked for flow. The saline cleared nicely. The common carotid artery was then clamped. Flow reversal was instituted. We inserted a 4 x 35 balloon backloaded on the wire. The wire could not be passed through the lesion. We therefore removed the balloon and used a Kumpe catheter to help engage the internal carotid artery origin. Once the origin was engaged the wire passed easily into the petrous portion of the internal carotid. The 4 balloon was then advanced to the lesion. Lesion was then predilated with a 4 mm balloon. Balloon was removed. We then inserted the 8 x 40 stent. This was deployed across the lesion without difficulty. The catheter was removed. The carotid was allowed to go 2 minutes with flow reversal. Completion angiogram was done at that time which showed a widely patent carotid stent. At that point the common carotid artery was unclamped. The venous return tubing was clamped and removed from the TCAR sheath. The blood was allowed to flow back into the venous system. Once this was completed the sheath was pulled from the groin and pressure was applied. The TCAR sheath was then removed and the 5-0 Prolene suture securely tied. Hemostasis was noted of the puncture site. Wound was irrigated with Ancef solution. Adequate hemostasis was obtained of the wound. Once this was noted the wound was closed in usual fashion using a 3-0 Vicryl suture for the subcutaneous layer and a 4-0 subcuticular Vicryl suture for the skin edges. Dermabond was used for dressing.The patient left the operation room in satisfactory condition and tolerated the procedure well. All needle and sponge counts were correct at the end of the procedure. Jaylin Dorantes Pac assisted due to lack of resident availability and was necessary for positioning, draping, retraction, wound closure deep layers, subcutaneous tissue, and skin closure and was necessary for assisting with the case. I attest to the content of the Intraoperative Record and any orders documented therein. Any exceptions are noted below.
--- NOTE | 2023-02-14 14:56 | Anesthesiology Progress Note ---
Date of Service February 14, 2023 Anesthesia Post Procedure Vital Signs Vital Signs: Temp Pulse Pulse Resp BP BP Pulse Ox 02/14/23 14:45 77 16 98/51 L 94 02/14/23 14:35 36.6 C 87 14 102/42 L 95 02/14/23 14:25 84 16 108/41 L 95 02/14/23 14:15 95 H 14 135/44 L 98 02/14/23 14:09 36.3 C L 112 H 14 167/54 H 97 02/14/23 10:38 36.8 C 90 16 100/68 95 O2 Del Method O2 Flow Rate 02/14/23 14:45 Room Air 02/14/23 14:35 Room Air 02/14/23 14:25 Room Air 02/14/23 14:15 Room Air 02/14/23 14:09 Oxymask 6 02/14/23 10:38 Room Air Transfer of Care Handoff Completed per policy Notes Mental Status: alert / awake / arousable and participated in evaluation Patient Amnestic to Procedure: Yes Nausea / Vomiting: adequately controlled Pain: adequately controlled Airway Patency, RR, SpO2: stable & adequate BP & HR: stable & adequate Hydration State: stable & adequate Anesthetic Complications: no major complications apparent
[2023-02-14] MEDS ORDERED: oxyCODONE/ACETAMINOPHEN 5mg/325mg TAB PO PRN (15:47)
[2023-02-14] MEDS ORDERED: PHENYLEPHRINE/NSS 25 MG/250 ML BAG IV PRN ×2 (16:26→16:30)
[2023-02-14] MEDS: LACTATED RINGER'S 1,000 ML IV SCH (16:33)
--- NOTE | 2023-02-14 16:48 | Critical Care Consultation ---
Date of Consultation February 14, 2023 Assessment & Plan (1) Left carotid stenosis: (2) Stroke: (3) Tobacco abuse: Plan -- Carotid artery stenosis S/p left-sided TCAR on 02/14/[address] Allen Monitor neurochecks as per the protocol Monitor H&H -- Shock Likely postsurgery/anesthesia Titrate off phenylephrine to keep MAP greater than 65 --History of stroke Left occipital Appreciated on MRI 01/15/2023 -- Active smoker Greater than [id number] smoking history Importance of quitting explained to patient in depth Recommend PFTs as an outpatient --Prophylaxis VTE:IPC GI: None Lines: Right radial, peripheral Diet: Cardiac Plan: Try to titrate off phenylephrine Strict in and out Neurochecks Pain medication Monitor H&H Add incentive spirometry as well as Incruse inhaler on a daily basis Please note the above document was generated using voice recognition software. It may contain grammatical, syntax or spelling errors.Any formal questions or concerns about the content, text or information contained within the body of this dictation should be directly addressed to the provider for clarification. History of Present Illness Attending Physician: Huber Allen MD History of Present Illness 62-year-old female admitted to the hospital for TCAR Past medical history: Stroke 01/2023 with no residual deficit, active smoker Patient is in the ICU for further care At the time of examination patient's family was in the room. She was on 0.5 phenylephrine with MAP in the low 80s. Not in any respiratory distress Heart rate in the mid 70s. She denied any chest pain, no shortness of breath, no headache, no nausea, no vomiting. No blurry vision. No difficulty swallowing Did have some soreness at the site of the incision. Social history: Greater than [id number] smoking history, currently smoking half a pack a day No history of lung cancer in the family Allergies Allergy/AdvReac Type Severity Reaction Status Date / Time Sulfa (Sulfonamide Allergy Intermediate HIVES Verified 02/14/23 10:36 Antibiotics) Home Medications Medication Instructions Recorded Confirmed Type atorvastatin 40 mg tablet 40 mg PO QAM #30 tabs 01/17/23 02/14/23 Rx clopidogrel 75 mg tablet 75 mg PO QAM #30 tabs 01/17/23 02/14/23 Rx aspirin 81 mg tablet,delayed 81 mg PO QAM 02/06/23 02/14/23 History release Patient History Medical History Alcohol dependence Erythrocytosis History of COVID-19 NOTED IN "ACTIVE PROBLEM LIST" IN [facility] CHART>PT DENIES HAVING COVID STATING "THAT WHEN SHE WAS AT THE HOSPITAL LAST YEAR THEY TOLD HER SHE HAD COVID, BUT I DON'T BELIEVE I DID." Hyperlipidemia Left carotid stenosis Polycythemia Stroke 01/15/23, hospitalized at [facility], d/c on 01/17/23; left arm and hand numbness, lt foot was "tingling"; f/u Dr. Allen, [facility]>no residual symptoms Tobacco abuse Surgical History H/O arthroscopic knee surgery H/O section Hx of colonoscopy Hx of nasal septoplasty Status post tubal ligation [place] teeth extracted Family History Father Diabetes Thyroid disease Unknown Esophageal cancer Myocardial infarction Hypertension Social History Smoking Status: Current every day smoker Tobacco Type: Cigarettes Cigarettes Per Day: 10; Second Hand Exposure: No; Do You Dip or Chew Tobacco: No; Tobacco Cessation Education Requested by Patient: No Hx Alcohol Use: Yes Alcohol type: beer Hx Substance Use: No Preferred Language: Urdu Communication Ability: Effective Visual Impairment: No Limitations Hearing Ability: Normal Computer Designer Required: No Beliefs That Will Affect Care: None marital status: Current Living Situation: Spouse and Family Current Living Situation Comment: Lives at home with Son current occupational status: unemployed Other Information That Helps Us Care for You: No Feels Safe at Home: Yes Safety Concerns: Feels Safe At This Time Assistive Devices: Glasses Assistive Devices Comment: GLASSES PRN Review of Systems Review of Systems: All systems reviewed & are unremarkable except as noted in HPI & below Physical Exam Physical Exam: Constitutional: No acute distress HEENT: EOMI, PERRLA Respiratory system: Decreased air entry bilaterally, no wheeze, no rhonchi, positive crackles bilateral lower lobes CVS: S1-S2 positive, no murmurs or gallops Abdomen: Soft, nontender, nondistended, positive bowel sounds x4 Extremities: +2 pulses bilaterally radialis/+1 bilateral dorsalis pedis, no cyanosis, no edema Neuro: Awake alert oriented x3, cranial nerves II to XII grossly intact, strength 5 out of 5 bilateral upper and lower extremity Psych: Normal mood and affect G/U: Positive Hernández Skin: no rashes, warm and dry Lymphatic: no cervical or axillary lymphadenopathy Results & Data Results & Data Vital Signs (Past 12 Hours) Vital Signs Temp Pulse Pulse Pulse Resp BP BP 02/14/23 15:45 75 20 02/14/23 15:30 79 16 02/14/23 15:23 75 17 02/14/23 14:45 77 16 98/51 L 02/14/23 14:35 36.6 C 87 14 102/42 L 02/14/23 14:25 84 16 108/41 L 02/14/23 14:15 95 H 14 135/44 L 02/14/23 14:09 36.3 C L 112 H 14 167/54 H 02/14/23 10:38 36.8 C 90 16 100/68 Pulse Ox O2 Del Method O2 Flow Rate 02/14/23 15:45 95 02/14/23 15:30 95 02/14/23 15:23 95 02/14/23 14:45 94 Room Air 02/14/23 14:35 95 Room Air 02/14/23 14:25 95 Room Air 02/14/23 14:15 98 Room Air 02/14/23 14:09 97 Oxymask 6 02/14/23 10:38 95 Room Air Coding Level of Care Code 26314 IN/OBS CONSULT LVL 4,60M Diagnoses Left carotid stenosis I65.22 Stroke I63.9 CVA mechanism: unspecified Tobacco abuse Z72.0 (2) Stroke CVA mechanism: unspecified Qualified Code(s): I63.9 - Cerebral infarction, unspecified
[2023-02-14] MEDS: ceFAZolin 2000MG 2,000 MG/15 ML SYR IV SCH (19:21)
[2023-02-15] MEDS: ceFAZolin 2000MG 2,000 MG/15 ML SYR IV SCH (03:20)
--- NOTE | 2023-02-15 07:27 | Critical Care Progress Note ---
Date of Service February 15, 2023 Assessment & Plan (1) Left carotid stenosis: (2) Stroke: (3) Tobacco abuse: Plan -- Carotid artery stenosis S/p left-sided TCAR on 02/14/[address] Allen Monitor neurochecks as per the protocol Monitor H&H -- Shock Likely postsurgery/anesthesia Titrate off phenylephrine to keep MAP greater than 65 --History of stroke Left occipital Appreciated on MRI 01/15/2023 -- Active smoker Greater than [id number] smoking history Importance of quitting explained to patient in depth Recommend PFTs as an outpatient --Prophylaxis VTE:IPC GI: None Lines: Right radial, peripheral Diet: Cardiac Plan: In/out: +2 L, urine output 365, urine output was not accurately measured DC IV fluids DC A-line Disposition as per vascular surgery Please note the above document was generated using voice recognition software. It may contain grammatical, syntax or spelling errors.Any formal questions or concerns about the content, text or information contained within the body of this dictation should be directly addressed to the provider for clarification. Admission and Anticipated Discharge Date Admission Date: February 14, 2023 Subjective Patient seen and examined at bedside. No acute distress, no adverse events overnight She was sitting on the chair. Systolic blood pressure was in the 110s. They had turned off the vasopressors just prior to me seeing her Denies any nausea vomiting Did have her breakfast. No headache, no blurry vision No chest pain, no shortness of breath Review of Systems Review of Systems: All systems reviewed & are unremarkable except as noted in Subjective Physical Exam Physical Exam: Constitutional: No acute distress HEENT: EOMI, PERRLA Respiratory system: Decreased air entry bilaterally, no wheeze, no rhonchi, positive crackles bilateral lower lobes CVS: S1-S2 positive, no murmurs or gallops Abdomen: Soft, nontender, nondistended, positive bowel sounds x4 Extremities: +2 pulses bilaterally radialis/+1 bilateral dorsalis pedis, no cyanosis, no edema Neuro: Awake alert oriented x3, cranial nerves II to XII grossly intact, strength 5 out of 5 bilateral upper and lower extremity Psych: Normal mood and affect G/U: Positive Hernández Skin: no rashes, warm and dry Lymphatic: no cervical or axillary lymphadenopathy Results & Data Results & Data Vital Signs (Past 12 Hours) Vital Signs Temp Pulse Resp BP Pulse Ox O2 Del Method 02/15/23 06:30 72 24 117/61 99 Room Air 02/15/23 06:00 46 L 15 122/59 L 95 Room Air 02/15/23 05:00 59 L 9 L 105/54 L 98 02/15/23 04:30 43 L 14 108/50 L 96 02/15/23 04:00 65 15 114/59 L 96 02/15/23 03:39 36.5 C 54 L 14 87/49 L 96 Room Air 02/15/23 03:34 51 L 14 104/50 L 96 02/15/23 03:26 74 129/73 95 Room Air 02/15/23 03:19 55 L 18 119/58 L 96 Room Air 02/15/23 03:00 49 L 8 L 113/54 L 96 02/15/23 02:34 44 L 12 130/56 L 96 Room Air 02/15/23 02:00 42 L 16 131/51 L 92 Room Air 02/15/23 01:00 50 L 15 119/59 L 95 Room Air 02/15/23 00:00 36.7 C 46 L 16 110/52 L 95 Room Air 02/14/23 23:00 58 L 11 L 115/59 L 95 Room Air 02/14/23 22:00 53 L 15 118/60 97 Room Air 02/15/23 00:00 61 02/14/23 21:09 57 L 20 95/54 L 97 Room Air 02/14/23 21:07 59 L 20 93/51 L 96 Room Air 02/14/23 21:00 69 15 97 Room Air 02/14/23 20:27 48 L 15 115/62 97 02/14/23 20:00 71 16 97 02/14/23 19:48 68 21 115/62 95 02/14/23 20:00 Room Air Coding Level of Care Code 26966 SUB INP/OBS CARE 2/35MIN Diagnoses Left carotid stenosis I65.22 Stroke I63.9 CVA mechanism: unspecified Tobacco abuse Z72.0 (2) Stroke CVA mechanism: unspecified Qualified Code(s): I63.9 - Cerebral infarction, unspecified
[2023-02-15] MEDS ORDERED: PSEUDOEPHEDRINE HCL 30 MG TAB PO STA (07:58)
[2023-02-15] MEDS ORDERED: PSEUDOEPHEDRINE HCL 30 MG TAB PO PRN (07:58)
[2023-02-15] MEDS: LACTATED RINGER'S 1,000 ML IV SCH ×2 (08:22→08:23)
--- NOTE | 2023-02-15 08:54 | Surgery Progress Note ---
Date of Service February 15, 2023 Assessment & Plan (1) Internal carotid artery stent present: Plan: Patient is doing well post TCAR. She has no neurological deficits. Incision site looks good. (2) Postoperative hypotension: Plan: She did have some very mild hypotension requiring just a small amount of [place] to maintain a pressure over 100. She is asymptomatic from this. We did place her on Sudafed. If she is able to be weaned off the [place] this morning she will be discharged later today on Sudafed. Admission and Anticipated Discharge Date Admission Date: February 14, 2023 Subjective Patient sitting up in a chair eating breakfast. She did have some numbness in and around her lips last night postoperatively which she related to having a dry mouth. This morning she has no complaints of any numbness around her lips. She is eating without difficulty. She does not complain of any focal neurological deficits. Physical Exam Constitutional: WD/WN, vitals as above Neck: trachea midline Respiratory: normal respiratory effort; no respiratory distress Cardiovascular: Rate/Rhythm: regular rate and regular rhythm Skin: + incision (There is a small amount of ecchymosis around the incision and mild edema) Neurologic: CN's II-XI intact bilaterally and moves all extremities Psychiatric: Orientation: alert and oriented x 3 Results & Data Vital Signs (Past 12 Hours) Vital Signs Temp Pulse Resp BP Pulse Ox O2 Del Method 02/15/23 06:30 72 24 117/61 99 Room Air 02/15/23 06:00 46 L 15 122/59 L 95 Room Air 02/15/23 05:00 59 L 9 L 105/54 L 98 02/15/23 04:30 43 L 14 108/50 L 96 02/15/23 04:00 65 15 114/59 L 96 02/15/23 03:39 36.5 C 54 L 14 87/49 L 96 Room Air 02/15/23 03:34 51 L 14 104/50 L 96 02/15/23 03:26 74 129/73 95 Room Air 02/15/23 03:19 55 L 18 119/58 L 96 Room Air 02/15/23 03:00 49 L 8 L 113/54 L 96 02/15/23 02:34 44 L 12 130/56 L 96 Room Air 02/15/23 02:00 42 L 16 131/51 L 92 Room Air 02/15/23 01:00 50 L 15 119/59 L 95 Room Air 02/15/23 00:00 36.7 C 46 L 16 110/52 L 95 Room Air 02/14/23 23:00 58 L 11 L 115/59 L 95 Room Air 02/14/23 22:00 53 L 15 118/60 97 Room Air 02/15/23 00:00 61 02/14/23 21:09 57 L 20 95/54 L 97 Room Air 02/14/23 21:07 59 L 20 93/51 L 96 Room Air 02/14/23 21:00 69 15 97 Room Air
[2023-02-15] MEDS ORDERED: ASPIRIN 81 MG ECTAB PO SCH (09:00)
[2023-02-15] MEDS ORDERED: ATORVASTATIN 40 MG TAB PO SCH (09:00)
[2023-02-15] MEDS ORDERED: CLOPIDOGREL BISULFATE 75 MG TAB PO SCH (09:00)
[2023-02-15] MEDS ORDERED: UMECLIDINIUM BROMIDE 62.5MCG/BLISTER 7 PUFFS/INHALER INH SCH (09:00)
== END 2023-02-15 14:30 | disposition home or self-care (01) | DRG 35 ==
LOC: ASU 10:01 → 1E 11:46
PROC: EV.TCAR (2023-02-14 12:10)

== ENCOUNTER 2025-07-30 12:27 | Inpatient (IN) ==
--- NOTE | 2025-07-30 13:28 | XRay Report ---
XR chest 1V portable CLINICAL HISTORY: Chest pain. COMPARISON STUDY: Chest CT February 28, 2023. Chest radiograph June 07, 2024. FINDINGS: No pneumothorax or pleural effusion is present. No consolidation is identified. A left lowe r lung retrocardiac linear density persists. This is similar to prior exam. Cardiomediastinal silhoue tte is unremarkable. There is no evidence for pulmonary edema. IMPRESSION: 1. No acute cardiopulmonary findings. 2. Persistent left lower lung retrocardiac linear density. This may represent scarring however radiog raphic follow-up to ensure stability is recommended. ACT 112: Negative or not required by law. Electronically signed by: Meng Fleming M.D. 07/30/2025 1:26 PM
--- NOTE | 2025-07-30 13:29 | CT Scan Report ---
CT head/brain wo con CLINICAL HISTORY: 65 years-old Female with AMS. Acutely altered mental status TECHNIQUE: Multiple axial CT images of the head were obtained without contrast. A dose lowering tech nique was utilized adhering to the principles of ALARA. CT DOSE: 625.8 mGy.cm COMPARISON: 06/07/2024 FINDINGS: No acute intracranial hemorrhage, midline shift, intracranial mass, hydrocephalus, territorial ischem ia or abnormal extra-axial collection. Involutional changes with chronic microvascular ischemic disea se. Numerous small chronic infarcts redemonstrated. The calvarium is intact. The paranasal sinuses, mastoid air cells, and middle ear cavities are clear . IMPRESSION: No acute intracranial abnormality. ACT 112: Negative or not required by law. The above report was generated using voice recognition software. It may contain grammatical, syntax o r spelling errors. Electronically signed by: Frank Adams M.D. 07/30/2025 1:28 PM
[2025-07-30 15:08] LABS: INR 1.1 (0.9-1.1); Partial Thromboplastin Time 29 Seconds (21-31); Prothrombin Time 11.8 Seconds (9.0-12.0)
--- NOTE | 2025-07-30 15:10 | Emergency Department Note ---
History of Present Illness General Chief complaint: Confusion Time Seen by Provider: 07/30/25 13:11 History of Present Illness This is a 65-year-old female who presents to the emergency department via EMS with complaints of "confusion/memory issues". History obtained from nursing staff via EMS report as well as through review of the patient's PCP visit from earlier today and from the patient. The patient notes that she has had progressive memory issues for some time now. She denies any trauma or injury. She denies any recent or current illness. She denies any fevers or chills. She denies any nausea or vomiting. Per review of the PCP note from earlier today the patient has had progressive weight loss and secondary to her significant confusion and memory issues was transported via EMS to the emergency department for further evaluation and management. It appears that staff accompany the patient to her car and they found the car still running and incorrectly parked. Home Medications Medication Instructions Recorded Confirmed Type No Known Home Medications 07/30/25 07/30/25 History Allergies Allergy/AdvReac Type Severity Reaction Status Date / Time Sulfa (Sulfonamide Allergy Intermediate HIVES Verified 07/30/25 10:58 Antibiotics) Past Med/Surg History Problem List (Updated 07/30/25 @ 21:37 by Daniel Schmitt PA-C) Metabolic acidosis Abnormal weight loss (Acute) Cognitive decline (Acute) Alcohol use disorder, severe, dependence Rapid palpitations History of multiple strokes 01/15/23, hospitalized at [facility], d/c on 01/17/23; left arm and hand numbness, lt foot was "tingling"; f/u Dr. Allen, [facility]>no residual symptoms Memory deficit (Acute) Underweight due to inadequate caloric intake Cigarette smoker Alcohol dependence Polycythemia Nicotine dependence, cigarettes, uncomplicated Non compliance w medication regimen Internal carotid artery stent present Left carotid stenosis Medical History History of COVID-19 NOTED IN "ACTIVE PROBLEM LIST" IN [facility] CHART>PT DENIES HAVING COVID STATING "THAT WHEN SHE WAS AT THE HOSPITAL LAST YEAR THEY TOLD HER SHE HAD COVID, BUT I DON'T BELIEVE I DID." Left carotid stenosis Erythrocytosis Hyperlipidemia Erythrocytosis Cerebrovascular disease Polycythemia COVID-19 Tobacco abuse Surgical History Hx of nasal septoplasty Hx of colonoscopy H/O section H/O arthroscopic knee surgery [place] teeth extracted Family History Father Diabetes Thyroid disease Unknown Esophageal cancer Myocardial infarction Hypertension Social History Smoking Status: Current every day smoker Tobacco Type: Cigarettes Age Started Using Tobacco: 13; packs per day: 0.5; Cigarettes Per Day: 10; Second Hand Exposure: No; Do You Dip or Chew Tobacco: No; Hx Alcohol Use: Yes Alcohol type: beer Alcohol Intake Frequency: 4 or More x per/Week Hx Substance Use: No Preferred Language: Slovenian Communication Ability: Effective Visual Impairment: No Limitations Hearing Ability: Normal 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 Beliefs That Will Affect Care: None marital status: Current Living Situation: Spouse and Family Current Living Situation Comment: Lives at home with Son current occupational status: unemployed Feels Safe at Home: Yes Diet: regular caffeine: Yes Dental Care, Regularly: Yes Seatbelt Use: never Sunscreen Use: Yes Assistive Devices: None Review of Systems A total of 10 systems reviewed and were otherwise negative Physical Exam Vital Signs Vital Signs - 24 hr 07/30/25 14:30 07/30/25 15:33 07/30/25 16:09 Temperature 36.7 C Temperature Source Oral Pulse Rate 90 Pulse Rate [Apical] 84 Respiratory Rate 17 Respiratory Effort / Characteristics Non-Labored Respiratory Depth Normal Respiratory Pattern Regular Blood Pressure Blood Pressure [Right Arm] 125/66 Blood Pressure Mean Blood Pressure Mean [Right Arm] 85 Blood Pressure Position [Right Arm] Sitting Pulse Oximetry 96 07/30/25 16:30 Temperature Temperature Source Pulse Rate 100 H Pulse Rate [Apical] Respiratory Rate 16 Respiratory Effort / Characteristics Respiratory Depth Respiratory Pattern Blood Pressure 102/60 Blood Pressure [Right Arm] Blood Pressure Mean 72 Blood Pressure Mean [Right Arm] Blood Pressure Position [Right Arm] Pulse Oximetry 96 VITAL SIGNS - Vital signs and nursing notes were reviewed. Stable, afebrile. GENERAL -65-year-old female appearing her stated age in no acute distress. Patient appears tired, and is very thin with significantly low BMI at 13.9. Overall communicates well with provider and answers questions appropriately regarding person, place and time. SKIN - Without rashes. No wounds noted on initial exam. HEAD - NC/AT. EYES - PERRL with EOMI bilaterally. Sclera anicteric. EARS - No deformities of external structures noted on gross examination bilaterally. External auditory canals without discharge or otorrhea. Tympanic membranes pearly olivo without retraction or bulging. No fluid or purulent material visualized behind the TM. Handle of malleus, umbo, cone of light, pars tensa/flaccid all easily visualized. NOSE - Midline and without cyanosis. No epistaxis or purulent drainage noted. Septum midline without deviation or septal hematoma noted. MOUTH/OROPHARYNX - Without perioral cyanosis. NECK - Neck with FROM. No nuchal rigidity. LUNGS - CTA CARDIAC - RRR ABDOMEN - Abdominal contour normal without pulsations or visible masses. BS normoactive all four quadrants. No tenderness, palpable masses, hepatosplenomegaly, or ascites noted. EXTREMITIES - No clubbing or peripheral cyanosis. +5/5 strength noted in UE/LE bilaterally. NEUROLOGIC - Cranial nerves II through XII grossly intact. PSYCH -alert, oriented and pleasant on exam Course Administered Medications Thiamine HCl 500 mg/ Sodium (Chloride) 55 mls @ 210 mls/hr IV Q8H [facility] Stop: 08/02/25 03:01 Last Infusion: 07/30/25 19:40 Dose: Infused Documented By: Admin: 07/30/25 19:24 Dose: 210 mls/hr Documented By: KAREN Discontinued Medications Ceftriaxone Sodium (Rocephin) 1,000 mg in 50 mls @ 100 mls/hr IV NOW STA Stop: 07/30/25 17:30 Last Infusion: 07/30/25 18:59 Dose: Infused Documented By: Admin: 07/30/25 18:03 Dose: 100 mls/hr Documented By: SHAWNA Ioversol (Optiray 320 100ml) 90 ml IV ONCE ONE Stop: 07/30/25 19:06 Last Admin: 07/30/25 19:05 Dose: 90 ml Documented By: ALANNAH Medical Decision Making Laboratory Data 07/30/25 12:37 07/30/25 12:37 Lab Results 07/30/25 Range/Units 12:37 WBC 9.93 (4.8-10.8) K/ul RBC 4.96 (4.20-5.40) M/uL Hgb 15.0 (12.0-16.0) g/dL Hct 44.3 (37.0-47.0) % MCV 89.3 (80.0-100.0) fL MCH 30.2 (25.0-34.0) pg MCHC 33.9 (32.0-36.0) g/dL RDW Std Deviation 41.8 (36.4-46.3) fL RDW Coeff of Lee 12.8 (11.5-14.5) % Plt Count 298 (130-400) K/uL MPV 10.0 (9.4-12.4) fL PT 11.8 (9.0-12.0) Seconds INR 1.1 (0.9-1.1) APTT 29 (21-31) Seconds PTT Ratio 1.1 Sodium 137 (136-145) mmol/L Potassium 3.8 (3.5-5.1) mmol/L Chloride 103 (98-107) mmol/L Carbon Dioxide 20 L (21-32) mmol/L Anion Gap 14 H (3-11) BUN 11 (6-23) mg/dl Creatinine 0.46 L (0.6-1.2) mg/dl Est Cr Clr Drug Dosing Not Reportable eGFR 106.13 BUN/Creatinine Ratio 23.9 H (10-20) Glucose 93 (70-99(Fasting)) mg/dl Lactate 2.0 (0.4-2.0) mmol/L Calcium 10.1 (8.6-10.3) mg/dl Magnesium 1.8 (1.7-2.4) mg/dl Total Bilirubin 0.6 (0.2-1.0) mg/dl AST 16 (13-39) U/L ALT 9 (7-52) U/L Alkaline Phosphatase 111 H (34-104) U/L Total Creatine Kinase 16 L (26-192) U/L Total Protein 7.6 (6.0-8.3) gm/dl Albumin 4.0 (3.4-5.0) gm/dl Globulin 3.6 (2.5-4.0) gm/dl Albumin/Globulin Ratio 1.1 (0.9-2) Vitamin B12 254 (180-914) pg/ml TSH 1.245 (0.300-4.500) uIu/ml Salicylates < 3.0 L (3.0-30) mg/dl Acetaminophen < 3 L (10-30) ug/ml Ethyl Alcohol mg/dL < 10.0 (<10.0) mg/dl Imaging Data Radiologist's Impression: Chest X-Ray 07/30/25 00:00 XR chest 1V portable CLINICAL HISTORY: Chest pain. COMPARISON STUDY: Chest CT February 28, 2023. Chest radiograph June 07, 2024. FINDINGS: No pneumothorax or pleural effusion is present. No consolidation is identified. A left lower lung retrocardiac linear density persists. This is similar to prior exam. Cardiomediastinal silhouette is unremarkable. There is no evidence for pulmonary edema. IMPRESSION: 1. No acute cardiopulmonary findings. 2. Persistent left lower lung retrocardiac linear density. This may represent scarring however radiographic follow-up to ensure stability is recommended. ACT 112: Negative or not required by law. Electronically signed by: Meng Fleming M.D. 07/30/2025 1:[address] 07/30/25 13:10 CT head/brain wo con CLINICAL HISTORY: 65 years-old Female with AMS. Acutely altered mental status TECHNIQUE: Multiple axial CT images of the head were obtained without contrast. A dose lowering technique was utilized adhering to the principles of ALARA. CT DOSE: 625.8 mGy.cm COMPARISON: 06/07/2024 FINDINGS: No acute intracranial hemorrhage, midline shift, intracranial mass, hydrocephalus, territorial ischemia or abnormal extra-axial collection. Involutional changes with chronic microvascular ischemic disease. Numerous small chronic infarcts redemonstrated. The calvarium is intact. The paranasal sinuses, mastoid air cells, and middle ear cavities are clear. IMPRESSION: No acute intracranial abnormality. ACT 112: Negative or not required by law. The above report was generated using voice recognition software. It may contain grammatical, syntax or spelling errors. Electronically signed by: Frank Adams M.D. 07/30/2025 1:28 PM [facility] Narrative Patient was seen and evaluated as above in room A09. Review was performed of nursing notes and vital signs. I did review pertinent previous visits and patient history. After obtaining a thorough history and physical examination the above work up was performed. Please see HPI for full details. In short the patient presents to us today for progressive memory deficit and confusion. Patient referred by PCP office via EMS. The patient is with significantly low BMI and appears malnourished. She is tired on exam and answers questions as far as orientation to person, place and time however per review of PCP note and with further discussion had with family that presented to bedside it appears the patient has had a rather progressive decline in her cognition. Options of care were discussed with the patient. IV access was established. Labs were drawn. EKG per my interpretation reveals sinus rhythm with short MA at a rate of 93 bpm. QTc 440. QRS 84. No ST elevation on this rhythm tracing. Chest x-ray as above and negative for acute process. CT scan of the head as above. This was overall negative from an acute standpoint. There is no leukocytosis or concerning anemia. No evidence of emergent kidney or liver failure. Total CK is not elevated making rhabdomyolysis less likely. Urinalysis returned concerning for possible UTI, IV antibiotics initiated. Alcohol, salicylate and acetolevels all returned negative. Lyme screen negative. The patient certainly would benefit from further evaluation and management in the inpatient setting. Case discussed with the hospitalist service. Please refer to further documentation regarding her stay. GCS: 15 In the evaluation and treatment of this patient the following differential diagnoses were entertained: CVA, TIA, electrolyte disturbance, encephalopathy, among others. Of note patient was seen during period of unplanned EMR downtime. Please refer to scanned in documentation regarding additional care rendered by staff as vital signs and rounding by nursing staff may not be readily documented here within this EMR as it was down at the time of assessment therefore may be on paper charts. Impression & Plan Memory deficit, Cognitive decline, Abnormal weight loss Discharge Plan Visit Data Chief Complaint: Confusion ED Provider: Beto Rubio ED Midlevel Provider: Daniel Schmitt Discharge Problem: Memory deficit, Cognitive decline, Abnormal weight loss Patient Disposition: Admitted As Inpatient Condition: Fair Discharge Instructions Interventions: ED Discharge Assessment Last Done: 07/30/25 21:25
[2025-07-30 15:18] LABS: Acetaminophen < 3 ug/ml (10-30); Salicylate < 3.0 mg/dl (3.0-30)
[2025-07-30 15:19] LABS: Hematocrit (blood only) 44.3 % (37.0-47.0); Hemoglobin 15.0 g/dL (12.0-16.0); Mean Corpuscular Hemoglobin 30.2 pg (25.0-34.0); Mean Corpuscular Volume 89.3 fL (80.0-100.0); Platelet Count 298 K/uL (130-400); RDW Standard Deviation 41.8 fL (36.4-46.3); Red Blood Count 4.96 M/uL (4.20-5.40); White Blood Count 9.93 K/ul (4.8-10.8)
[2025-07-30 15:21] LABS: Alanine Aminotransferase 9 U/L (7-52); Albumin Globulin Ratio 1.1 (0.9-2); Albumin Level 4.0 gm/dl (3.4-5.0); Alkaline Phosphatase 111 U/L (34-104); Anion Gap 14 (3-11); Bilirubin,Total 0.6 mg/dl (0.2-1.0); Blood Urea Nitrogen 11 mg/dl (6-23); Calcium 10.1 mg/dl (8.6-10.3); Carbon Dioxide 20 mmol/L (21-32); Chloride 103 mmol/L (98-107); Creatine Kinase 16 U/L (26-192); Globulin 3.6 gm/dl (2.5-4.0); Glucose 93 mg/dl (70-99(Fasting)); Magnesium 1.8 mg/dl (1.7-2.4); Potassium 3.8 mmol/L (3.5-5.1); Sodium 137 mmol/L (136-145); Thyroid Stimulating Hormone 1.245 uIu/ml (0.300-4.500); Total Protein 7.6 gm/dl (6.0-8.3)
[2025-07-30 15:53] LABS: Appearance Urine Clear (Clear); Bacteria Urine Automated 4+ (None Seen); Cast Urine Automated 0-2 /lpf (0-2); Glucose Urine UA Negative (Negative); RBC Urine Automated 0-2 /hpf (0-2); WBC Urine Automated 0-5 /hpf (0-5)
[2025-07-30] MEDS: cefTRIAXone SODIUM 1,000 MG/50 ML BAG IV STA (18:03)
--- NOTE | 2025-07-30 18:44 | History & Physical Report ---
Date of Service July 30, 2025 Assessment & Plan (1) History of multiple strokes: (2) Underweight due to inadequate caloric intake: (3) Cigarette smoker: (4) Cognitive decline: (5) Abnormal weight loss: (6) Metabolic acidosis: Plan 65-year-old woman with history of multiple strokes, ongoing tobacco use, alcohol use who is admitted with increasing confusion and forgetfulness also dramatic weight loss over the last 6 months # Cognitive decline Suspected vascular dementia due to history of multiple strokes and significant weight loss. High risk for Wernicke encephalopathy given history of alcohol use and severe weight loss. did well with attention testing delirium seems unlikely - speech therapy cognitive evaluation - Check blood levels for B12 and B1 - Start empiric IV thiamine 500 mg every 8 hours - consider brain MRI # Cachexia Severe weight loss and cachexia with very low BMI of 13.9. - might be related to high-grade KATIE stenosis and abdominal vascular disease - Consult registered dietitian for nutritional recommendations and malnutrition assessment - order chest CT since she is elevated risk of lung cancer - she is up-to-date with her Pap smear, however, has not had a mammogram in a long time nor colonoscopy these can be completed in the outpatient setting # Metabolic acidosis Elevated anion gap likely related to nutritional ketosis. - Recheck chemistry panel after IV fluids and meals in the morning # diffuse Vascular disease, history of multiple strokes and left TCAR by Dr. Allen. high-grade KATIE stenosis and multifocal iliac and femoral stenoses bilaterally on CTA abdomen March 2025. - Resume aspirin, Plavix, and atorvastatin (which she had discontinued on her own previously) for stroke prevention and vascular disease management - check lipid panel in a.m. to make sure cholesterol is not actually too low for a statin - Arrange consultation with vascular surgery # Increased risk of lung cancer Elevated risk for lung cancer given history of smoking and incidental findings of left lower lobe mucous plugging and bronchiectasis on previous imaging. - Obtain chest CT # DVT Prophylaxis: subcu heparin twice daily she prefers DNR/DNI I updated her who was present at the bedside Medical Complexity: Medical decision making was complex, high risk for clinical deterioration morbidity, or mortality for this encounter. Unstable conditions include cognitive decline, cachexia, metabolic acidosis, vascular disease, increased risk of lung cancer. New problems or diagnoses today include cognitive decline, cachexia, metabolic acidosis, increased risk of lung cancer. High risk medications and treatments include empiric IV thiamine, aspirin, Plavix, atorvastatin. History of Present Illness Chief Complaint: confusion and weight loss Primary Care Provider: Yeny Flores MD The patient is a 65-year-old woman who was brought in by EMS from her doctor's office because she was confused and having memory problems. She didn't have an appointment but showed up at Dr. Costello's office today, and he noticed she wasn't acting like herself. She left her car running and parked it incorrectly, which raised concerns about her cognitive state, so she was sent to the emergency department for evaluation. Her family mentioned that her memory has been getting worse recently. She has a history of multiple strokes, alcohol use, and cigarette smoking. Her family also said she forgets to do her chores and everyday activities and has lost 40-50 pounds in the last 6 months. Her primary care note from March was reviewed, where she was seen for weight loss, having lost about 20 pounds at that time. An iliac bruit was noted, and she was sent for a CTA of her abdomen, which showed high-grade KATIE stenosis and multifocal iliac and femoral stenoses bilaterally, about 50-60% including branch vessels. Incidental findings in her lung showed left lower lobe mucous plugging and bronchiectasis. She has aortic atherosclerosis but no aneurysm. Her TSH was normal. Cancer screening was reviewed: a low-dose chest CT in 2022 showed no malignancy; her last colonoscopy was in 2011, which she deferred due to cost; she had a Pap smear and cytology in April 2023, which were HPV negative; a mammogram was scheduled for winter 2023 but not completed; HIV and HCV screenings were negative in March 2025. Her family has noticed a gradual decline in her cognitive abilities, including forgetfulness, disorientation, getting lost while driving, and not cooking much anymore. She often forgets to turn off the stove. She denies any feelings of depression, anxiety, headaches, lightheadedness, vertigo, syncope, vision changes, mouth sores, changes in taste or smell, difficulty swallowing or chewing, shortness of breath, coughing up blood, chest pain, constipation, diarrhea, changes in bowel habits, black tarry stools, blood in stool, pain with urination, or dysuria. She sometimes has abdominal pain after eating but no nausea or vomiting. Her diet mainly consists of peanut butter, sweets, and junk food. She has chronic urinary frequency and drinks a lot of water. She has no rashes, skin lesions, breast lumps, or bumps on her neck, armpits, or groins. She doesn't have leg swelling or pain in her legs or calves when walking. She currently drinks only one beer per day at most and smokes half a pack of cigarettes per day. She lives with her and son. Allergies Allergy/AdvReac Type Severity Reaction Status Date / Time Sulfa (Sulfonamide Allergy Intermediate HIVES Verified 07/30/25 10:58 Antibiotics) Home Medications Medication Instructions Recorded Confirmed Type No Known Home Medications 07/30/25 07/30/25 History Past Med/Surg History Problem List (Updated 07/30/25 @ 18:43 by Marylou Smith MD) Metabolic acidosis Abnormal weight loss Cognitive decline Alcohol use disorder, severe, dependence Rapid palpitations History of multiple strokes 01/15/23, hospitalized at [facility], d/c on 01/17/23; left arm and hand numbness, lt foot was "tingling"; f/u Dr. Allen, [facility]>no residual symptoms Memory deficit Underweight due to inadequate caloric intake Cigarette smoker Alcohol dependence Polycythemia Nicotine dependence, cigarettes, uncomplicated Non compliance w medication regimen Internal carotid artery stent present Left carotid stenosis Medical History History of COVID-19 NOTED IN "ACTIVE PROBLEM LIST" IN [facility] CHART>PT DENIES HAVING COVID STATING "THAT WHEN SHE WAS AT THE HOSPITAL LAST YEAR THEY TOLD HER SHE HAD COVID, BUT I DON'T BELIEVE I DID." Left carotid stenosis Erythrocytosis Hyperlipidemia Erythrocytosis Cerebrovascular disease Polycythemia COVID-19 Tobacco abuse Surgical History Hx of nasal septoplasty Hx of colonoscopy H/O section H/O arthroscopic knee surgery [place] teeth extracted Family History Father Diabetes Thyroid disease Unknown Esophageal cancer Myocardial infarction Hypertension Social History Smoking Status: Current every day smoker Tobacco Type: Cigarettes Age Started Using Tobacco: 13; packs per day: 0.5; Cigarettes Per Day: 10; Second Hand Exposure: No; Do You Dip or Chew Tobacco: No; Hx Alcohol Use: Yes Alcohol type: beer Alcohol Intake Frequency: 4 or More x per/Week Hx Substance Use: No Preferred Language: [place] Communication Ability: Effective Visual Impairment: No Limitations Hearing Ability: Normal [place] Driver Required: No Beliefs That Will Affect Care: None marital status: Current Living Situation: Spouse and Family Current Living Situation Comment: Lives at home with Son current occupational status: unemployed Feels Safe at Home: Yes Diet: regular caffeine: Yes Dental Care, Regularly: Yes Seatbelt Use: never Sunscreen Use: Yes Assistive Devices: None Review of Systems Review of Systems: All systems reviewed & are unremarkable except as noted in HPI & below Negative for feelings of depression or anxiety, headaches, lightheadedness, mark tigo, syncope, changes in vision, episodes of amaurosis fugax, changes in color vision, mouth sores, changes in taste or smell, difficulty swallowing or chewing, shortness of breath, hemoptysis, chest pain, constipation, diarrhea, changes in bowel habits, black tarry stools, blood in the stool, pain with urination or dysuria. Physical Exam Physical Exam: General Appearance: Extremely frail appearance. Vital signs: Reviewed past 24h vital signs in EMR, unremarkable. HEENT: Pupils equal, round, reactive to light. Extraocular movements intact, no nystagmus. Dry mucous membranes, no oropharyngeal lesions. Respiratory: Clear to auscultation bilaterally, no rhonchi, rales, or wheezes. Cardiovascular: Regular rhythm, no murmurs, rubs, or gallops. Gastrointestinal: Soft, nontender, no masses, active bowel sounds. Lymphatic: No supraclavicular, cervical, or axillary lymphadenopathy. Extremities: Lower extremities warm, well perfused, no edema. Skin: Warm, dry, no rashes. Neurological: Awake, alert, oriented to person, place, situation. Recalls 2 out of 3 objects at 5 minutes. Says days of the week and months of the year backwards correctly. for clock drawing the hands are in the correct position, she does not draw any numbers, the drawing is quite small Psychiatric: Normal. Results & Data Results & Data Vital Signs (Past 12 Hours) Vital Signs Temp Pulse Pulse Resp BP BP Pulse Ox 07/30/25 18:00 95 H 20 139/104 H 95 07/30/25 17:30 89 23 109/60 95 07/30/25 16:30 100 H 16 102/60 96 07/30/25 16:09 36.7 C 07/30/25 15:33 90 07/30/25 14:30 84 17 125/66 96 Laboratory Results - Labs: - CBC: Normal with MCV of 89 - INR: 1.1 - Sodium: 137 - Potassium: 3.8 - CO2: 20 - Anion gap: 14 - Creatinine: 0.46 - Lactate: 2.0 - Calcium: 10 - Magnesium: 1.8 - Bilirubin: 0.6 - AST: 16 - ALT: 9 - Alk phos: 111 - Total CK: 16 - Albumin: 4.0 - TSH: 1.24 - Urinalysis: - Trace ketones - Positive nitrites - Trace leukocyte esterase - 0-5 white cells - 0-2 red cells - 6-10 epithelial cells - 4+ bacteria - Screening for salicylates, acetaminophen and alcohol: Negative - Imaging: - Chest x-ray: Clear lung bhandari, left lower lobe vertical linear density. I personally reviewed and interpreted the chest x-ray film - Head CT: Numerous small infarcts, microvascular disease. No acute findings Code Status & VTE Plan VTE Prophylaxis Plan VTE Prophylaxis will be ordered: Yes PG Care Time/CCT Total # of Minutes Spent Total Time Spent with Patient: Total time spent is greater than 50% in coordination of care (as documented) at patient's floor/unit and/or counseling patient: Coding Level of Care Code 61131 INT INP/OBS CARE 3/75MIN Diagnoses History of multiple strokes Z86.73 Underweight due to inadequate caloric intake R63.6 Cigarette smoker F17.210 Cognitive decline R41.89 Abnormal weight loss R63.4 Metabolic acidosis E87.20
[2025-07-30] MEDS: OPTIRAY 320 100ml IV ONE (19:05)
[2025-07-30] MEDS: THIAMINE HCL 500 MG in SODIUM CHLORIDE 0.9% 50 ML IV SCH (19:24)
--- NOTE | 2025-07-30 20:42 | CT Scan Report ---
Exam: CT chest with contrast. Reason for exam: History of smoking. Severe weight loss. COMPARISON: CT thorax 02/28/2023. FINDINGS: Diffuse emphysematous COPD with bronchial and peribronchial thickening is again noted. Additionally, there is an abnormal area of soft tissue consolidation extending from the main left lower lobe bronchus peripherally to abut on the left posterior basal pleural surface. This was present on the previous study but has enlarged now measuring 2.5 x 1.0 x 3.9 cm as compared to a maximum 2.0 cm ON the previous study. This enlargement is suspicious and an enlarging of malignant neoplasm could cause these findings. At this time no other newly appearing nodule, infiltrate or mass is seen. No pleural effusion or pneumothorax is noted. No significant abnormal hilar or mediastinal mass or adenopathy is seen. Moderately severe coronary artery calcifications are present. IMPRESSION: 1. Suspicious enlarging soft tissue process in the posterior basal left lower lobe. This is significantly increased in size since a previous study of 02/28/2023 and the possibility of enlarging malignant neoplasm is considered. Pulmonary medicine follow up recommended. Further imaging evaluation with PET/CT would BE quite useful. 2. Diffuse emphysematous COPD. 3. Moderate coronary artery calcifications. Electronically signed by Valeriano Mcpherson 07-30-2025 8:42 PM
[2025-07-30] MEDS ORDERED: MAGNESIUM HYDROXIDE SUSP 30 ML UDC PO PRN (21:13)
[2025-07-30] MEDS ORDERED: ALUMINUM/MAGNESIUM SUSP 30 ML UDC PO PRN (21:13)
[2025-07-30] MEDS ORDERED: ONDANSETRON INJ 2 MG/ML 2 ML VIAL IV PRN (21:13)
[2025-07-30] MEDS ORDERED: POLYETHYLENE (MIRALAX) 17 GM PACK PO PRN (21:13)
[2025-07-30] MEDS: LACTATED RINGER'S 1,000 ML IV SCH (21:49)
[2025-07-30] MEDS: MELATONIN 3 MG TAB PO PRN (22:47)
[2025-07-30] MEDS: HEPARIN SOD 5,000 UNIT/0.5 ML VIAL SQ SCH (22:47)
[2025-07-30] MEDS: MIRTAZAPINE TAB 15 MG TAB PO SCH (22:47)
[2025-07-31 08:27] LABS: Anion Gap 8.0 (3-11); Blood Urea Nitrogen 7.0 mg/dl (6-23); Calcium 9.4 mg/dl (8.6-10.3); Carbon Dioxide 25.0 mmol/L (21-32); Chloride 109.0 mmol/L (98-107); Cholesterol 131.0 mg/dl (0-200); Creatinine Clr Calc Pharmacy 72.6 ml/min; Glucose 87.0 mg/dl (70-99(Fasting)); HDL Cholesterol 27.0 mg/dl; Potassium 3.8 mmol/L (3.5-5.1); Sodium 142.0 mmol/L (136-145); Triglycerides 101.0 mg/dl (0-150)
[2025-07-31] MEDS: CLOPIDOGREL BISULFATE 75 MG TAB PO SCH (09:03)
[2025-07-31] MEDS: ASPIRIN 81 MG CHEW PO SCH (09:03)
[2025-07-31] MEDS: CYANOCOBALAMIN 1000 MCG/ML VIAL IM SCH (09:07)
--- NOTE | 2025-07-31 12:08 | Pulmonary Consultation ---
Date of Consultation July 31, 2025 Assessment & Plan (1) Lung mass: * Left Lower Lobe lung mass which seems to be more defined compared to appearance on abdominal study from March 2025 and enlarged from the nodule noted at the same location on low-dose screening chest CT back in February 2023. * Highly likely malignant in the setting of chronic smoking and weight loss. * The mass is very peripheral, and could be more safely accessed by CT-guided needle. I think that a needle would have a higher yield than transbronchial biopsy * If biopsy cannot be obtained during this visit then PET scan can be scheduled and follow up arranged in Pulmonary Clinic. (2) Mediastinal lymphadenopathy: * From my review of this admission's CT scan, I think that the subcarinal lymph nodes (Station 7) are enlarged compared to study from February 2023. * These lymph nodes can be reassessed and, potentially, accessed by EBUS during bronchoscopy if diagnosis cannot be obtained via CT-guided biopsy. (3) Emphysema lung: * Patient denies much in terms of symptoms. * Recommend PFTs and referral to Pulmonary Clinic. * Most likely secondary to chronic smoking. (4) Abnormal weight loss: (5) Cigarette smoker: * Patient advised regarding smoking cessation. History of Present Illness Reason for Consultation: Lung mass Requesting Physician: Dr. Smith Attending Physician: Marylou Smith MD History of Present Illness The patient is a very pleasant 65-year-old woman who presented to the ED due to progressive confusion and memory issues. She was brought in via EMS after being evaluated at her physicians office, where she was noted to be disoriented, left her car running, and parked it incorrectly. Her family reported a several-month history of worsening memory, forgetfulness, and significant unintentional weight loss of 40-50 pounds over the past 6 months. 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 Laboratory studies revealed mild metabolic acidosis with an anion gap of 14, low CO2, and trace ketones on urinalysis, likely related to nutritional ketosis. There was no leukocytosis or anemia. Urinalysis was notable for positive nitrites, trace leukocyte esterase, and bacteriuria, raising concern for a possible UTI. Liver and renal function were within normal limits. Imaging included a head CT, which showed chronic microvascular ischemic changes and numerous small chronic infarcts, but no acute findings. Chest x-ray demonstrated a persistent left lower lung retrocardiac linear density, unchanged from prior imaging. A chest CT revealed diffuse emphysematous COPD with bronchial and peribronchial thickening, and an enlarging area of soft tissue consolidation in the left lower lobe, now measuring 2.5 x 1.0 x 3.9 cm, suspicious for a malignant neoplasm. Moderately severe coronary artery calcifications were also noted. Her past medical history included hyperlipidemia, left carotid stenosis (status post left transcarotid artery revascularization, TCAR), tobacco and alcohol dependence, and a history of COVID-19. She had a history of noncompliance with medications and no known home medications at the time of admission. Note from 07/31/2025: The patient denies problems with cough or dyspnea at rest, and denies that she exerts her self much to know if she would get winded from exertion. She denies chest pain. Allergies Allergy/AdvReac Type Severity Reaction Status Date / Time Sulfa (Sulfonamide Allergy Intermediate HIVES Verified 07/30/25 10:58 Antibiotics) Home Medications Medication Instructions Recorded Confirmed Type No Known Home Medications 07/30/25 07/30/25 History Patient History Medical History History of COVID-19 NOTED IN "ACTIVE PROBLEM LIST" IN [facility] CHART>PT DENIES HAVING COVID STATING "THAT WHEN SHE WAS AT THE HOSPITAL LAST YEAR THEY TOLD HER SHE HAD COVID, BUT I DON'T BELIEVE I DID." Left carotid stenosis Erythrocytosis Hyperlipidemia Erythrocytosis Cerebrovascular disease Polycythemia COVID-19 Tobacco abuse Surgical History Hx of nasal septoplasty Hx of colonoscopy H/O section H/O arthroscopic knee surgery Thayer teeth extracted Family History Father Diabetes Thyroid disease Unknown Esophageal cancer Myocardial infarction Hypertension Social History Smoking Status: Current every day smoker Tobacco Type: Cigarettes Age Started Using Tobacco: 13; packs per day: 0.5; Cigarettes Per Day: 10; Second Hand Exposure: Yes; Do You Dip or Chew Tobacco: No; Hx Alcohol Use: Yes Alcohol type: beer Alcohol Intake Frequency: 4 or More x per/Week Hx Substance Use: No Preferred Language: [place]ian Communication Ability: Effective Visual Impairment: No Limitations Hearing Ability: Normal Esthetician Required: No Beliefs That Will Affect Care: None marital status: Current Living Situation: Spouse and Family Current Living Situation Comment: Lives at home with and son current occupational status: unemployed Feels Safe at Home: Yes Diet: regular caffeine: Yes Dental Care, Regularly: Yes Seatbelt Use: never Sunscreen Use: Yes Assistive Devices: Denture - Upper and Glasses Review of Systems Review of Systems: All systems reviewed & are unremarkable except as noted in HPI & below Physical Exam Physical Exam: General: In no acute distress, breathing room-air. Obviously cachectic. Skin: Warm and dry to touch. Noobvious lesions. Eyes: Anicteric.Noconjunctival hyperemia or exudates.No periorbital edema. ENT: No oral thrush. No oropharyngeal erythema or exudates. Maxillary dentures. Neck: No palpable masses or adenopathy. Respiratory: Diffusely decreased breath sounds, no wheezing or crackles. No use of accessory muscles and no prolonged exhalation. Cardiac: Normal sounds, regular rhythm, no murmurs, no gallops, no rubs; could not appreciate JV pulse elevation. GI: Soft, nontender. Extremities No clubbing,no cyanosis,no edema. Neuro: No gross motor deficits. Seems appropriate. No facial-droop. Speech is clear. Results & Data Results & Data Vital Signs (Past 12 Hours) Vital Signs Temp Pulse Resp BP Pulse Ox O2 Del Method 07/31/25 08:00 36.9 C 81 14 128/73 96 Room Air 07/31/25 07:57 Room Air Laboratory Results 07/30/25 Unknown Urine Culture - Preliminary Urine,Clean Catch Escherichia coli 07/30/25 12:37 Aerobic Blood Culture - Pending Blood Anaerobic Blood Culture - Pending 07/30/25 12:37 Aerobic Blood Culture - Pending Blood Anaerobic Blood Culture - Pending 07/31/25 07/30/25 07/30/25 07:37 Unknown 17:50 WBC RBC Hgb Hct MCV MCH MCHC RDW Std Deviation RDW Coeff of Lee Plt Count MPV PT INR APTT PTT Ratio Sodium 142 Potassium 3.8 Chloride 109 H Carbon Dioxide 25 Anion Gap 8 BUN 7 Creatinine 0.44 L Est Cr Clr Drug Dosing 72.6 eGFR 107.27 BUN/Creatinine Ratio 15.9 Glucose 87 Lactate Calcium 9.4 Magnesium Total Bilirubin AST ALT Alkaline Phosphatase Total Creatine Kinase Total Protein Albumin Globulin Albumin/Globulin Ratio Triglycerides 101 Cholesterol 131 LDL Cholesterol, Calc 84 VLDL Cholesterol, Calc 20 HDL Cholesterol 27 Cholesterol/HDL Ratio 4.9 Vitamin B12 TSH Urine Color Yellow Urine Appearance Clear Urine pH 5.5 Ur Specific [place] 1.010 Urine Protein Negative Urine Glucose (UA) Negative Urine Ketones Trace H Urine Blood Negative Urine Nitrite Positive A Urine Bilirubin Negative Urine Urobilinogen Negative Ur Leukocyte Esterase Trace H Urine WBC (Auto) 0-5 Urine RBC (Auto) 0-2 U Hyaline Cast (Auto) 0-2 U Epithel Cells (Auto) 6-10 H Urine Bacteria (Auto) 4+ H Urine Comment Salicylates Acetaminophen Ethyl Alcohol mg/dL Lyme Disease Screen Negative 07/30/25 12:37 WBC 9.93 RBC 4.96 Hgb 15.0 Hct 44.3 MCV 89.3 MCH 30.2 MCHC 33.9 RDW Std Deviation 41.8 RDW Coeff of Lee 12.8 Plt Count 298 MPV 10.0 PT 11.8 INR 1.1 APTT 29 PTT Ratio 1.1 Sodium 137 Potassium 3.8 Chloride 103 Carbon Dioxide 20 L Anion Gap 14 H BUN 11 Creatinine 0.46 L Est Cr Clr Drug Dosing Not Reportable eGFR 106.13 BUN/Creatinine Ratio 23.9 H Glucose 93 Lactate 2.0 Calcium 10.1 Magnesium 1.8 Total Bilirubin 0.6 AST 16 ALT 9 Alkaline Phosphatase 111 H Total Creatine Kinase 16 L Total Protein 7.6 Albumin 4.0 Globulin 3.6 Albumin/Globulin Ratio 1.1 Triglycerides Cholesterol LDL Cholesterol, Calc VLDL Cholesterol, Calc HDL Cholesterol Cholesterol/HDL Ratio Vitamin B12 254 TSH 1.245 Urine Color Urine Appearance Urine pH Ur Specific [place] Urine Protein Urine Glucose (UA) Urine Ketones Urine Blood Urine Nitrite Urine Bilirubin Urine Urobilinogen Ur Leukocyte Esterase Urine WBC (Auto) Urine RBC (Auto) U Hyaline Cast (Auto) U Epithel Cells (Auto) Urine Bacteria (Auto) Urine Comment Salicylates < 3.0 L Acetaminophen < 3 L Ethyl Alcohol mg/dL < 10.0 Lyme Disease Screen Diagnostic Findings Chest X-Ray 07/30/25 00:00 XR chest 1V portable CLINICAL HISTORY: Chest pain. COMPARISON STUDY: Chest CT February 28, 2023. Chest radiograph June 07, 2024. FINDINGS: No pneumothorax or pleural effusion is present. No consolidation is identified. A left lower lung retrocardiac linear density persists. This is similar to prior exam. Cardiomediastinal silhouette is unremarkable. There is no evidence for pulmonary edema. IMPRESSION: 1. No acute cardiopulmonary findings. 2. Persistent left lower lung retrocardiac linear density. This may represent scarring however radiographic follow-up to ensure stability is recommended. ACT 112: Negative or not required by law. Electronically signed by: Meng Fleming M.D. 07/30/2025 1:[address] 07/30/25 13:10 CT head/brain wo con CLINICAL HISTORY: 65 years-old Female with AMS. Acutely altered mental status TECHNIQUE: Multiple axial CT images of the head were obtained without contrast. A dose lowering technique was utilized adhering to the principles of ALARA. CT DOSE: 625.8 mGy.cm COMPARISON: 06/07/2024 FINDINGS: No acute intracranial hemorrhage, midline shift, intracranial mass, hydrocephalus, territorial ischemia or abnormal extra-axial collection. Involutional changes with chronic microvascular ischemic disease. Numerous small chronic infarcts redemonstrated. The calvarium is intact. The paranasal sinuses, mastoid air cells, and middle ear cavities are clear. IMPRESSION: No acute intracranial abnormality. ACT 112: Negative or not required by law. The above report was generated using voice recognition software. It may contain grammatical, syntax or spelling errors. Electronically signed by: Frank Adams M.D. 07/30/2025 1:[address] 07/30/25 18:46 Exam: CT chest with contrast. Reason for exam: History of smoking. Severe weight loss. COMPARISON: CT thorax 02/28/2023. FINDINGS: Diffuse emphysematous COPD with bronchial and peribronchial thickening is again noted. Additionally, there is an abnormal area of soft tissue consolidation extending from the main left lower lobe bronchus peripherally to abut on the left posterior basal pleural surface. This was present on the previous study but has enlarged now measuring 2.5 x 1.0 x 3.9 cm as compared to a maximum 2.0 cm ON the previous study. This enlargement is suspicious and an enlarging of malignant neoplasm could cause these findings. At this time no other newly appearing nodule, infiltrate or mass is seen. No pleural effusion or pneumothorax is noted. No significant abnormal hilar or mediastinal mass or adenopathy is seen. Moderately severe coronary artery calcifications are present. IMPRESSION: 1. Suspicious enlarging soft tissue process in the posterior basal left lower lobe. This is significantly increased in size since a previous study of 02/28/2023 and the possibility of enlarging malignant neoplasm is considered. Pulmonary medicine follow up recommended. Further imaging evaluation with PET/CT would BE quite useful. 2. Diffuse emphysematous COPD. 3. Moderate coronary artery calcifications. Electronically signed by Valeriano Mcpherson 07-30-2025 8:42 PM Medications Administered Home Medications Medication Instructions Recorded Confirmed Last Taken No Known Home Medications 07/30/25 07/30/25 Unknown Active Medications Generic Name Dose Route Start Last Admin Trade Name Freq PRN Reason Stop Dose Admin Aspirin 81 mg 07/31/25 09:00 07/31/25 09:03 Aspirin 81 Mg Chew PO 08/30/25 08:59 81 mg QAM TRAN Administration Clopidogrel Bisulfate 75 mg 07/31/25 09:00 07/31/25 09:03 Clopidogrel Bisulfate 75 Mg Tab PO 08/30/25 08:59 75 mg QAM TRAN Administration Cyanocobalamin 1,000 mcg 07/31/25 09:00 07/31/25 09:07 Cyanocobalamin 1000 Mcg/Ml Vial IM 08/06/25 09:01 1,000 mcg QAM TRAN Administration Heparin Sodium (Porcine) 5,000 units 07/30/25 21:30 07/31/25 09:06 Heparin Sod 5,000 Unit/0.5 Ml Vial SQ 08/29/25 21:29 Not Given Q12 TRAN Thiamine HCl 500 mg/ Sodium 55 mls @ 210 mls/hr 07/30/25 18:45 07/31/25 10:35 Chloride IV 08/02/25 03:01 Infused Q8H TRAN Infusion Melatonin 3 mg 07/30/25 21:13 07/30/25 22:47 Melatonin 3 Mg Tab PO 08/29/25 21:12 3 mg HS PRN Administration Insomnia Mirtazapine 15 mg 07/30/25 21:30 07/30/25 22:47 Mirtazapine Tab 15 Mg Tab PO 08/29/25 21:29 15 mg HS TRAN Administration PG Care Time/CCT Total # of Minutes Spent Total Time Spent with Patient: Total time spent is greater than 50% in coordination of care (as documented) at patient's floor/unit and/or counseling patient: 65 minutes Coding Level of Care Code 62994 IN/OBS CONSULT LVL 4,60M Diagnoses Lung mass R91.8 Mediastinal lymphadenopathy R59.0 Emphysema lung J43.9 Abnormal weight loss R63.4 Cigarette smoker F17.210 Time Spent (min) 65
--- NOTE | 2025-07-31 17:28 | Hospitalist Progress Note ---
Date of Service July 31, 2025 Assessment & Plan (1) History of multiple strokes: (2) Underweight due to inadequate caloric intake: (3) Cigarette smoker: (4) Cognitive decline: (5) Abnormal weight loss: (6) Metabolic acidosis: Plan 65-year-old woman with history of multiple strokes, ongoing tobacco use, alcohol use who is admitted with increasing confusion and forgetfulness also dramatic weight loss over the last 6 months # Cognitive decline Suspected vascular dementia due to history of multiple strokes and significant weight loss. High risk for Wernicke encephalopathy given history of alcohol use and severe weight loss. did well with attention testing delirium seems unlikely - speech therapy cognitive evaluation - discussed with ST will do cog eval tomorrow - Check blood levels for B12 and B1 - B12 borderline, replace with 1000 mcg IM daily x 7d then ongoing, empiric thiamine 500 mg IV q8h x 8 doses - Start empiric IV thiamine 500 mg every 8 hours - because of probable malignancy ordered brain MRI ww/o contrast # Left lower lung mass - identified on chest CT - consulted component technician - lesion is peripheral so IR biopsy is best approach - consult IR on Sunday re biopsy. Not available today. Npo p MN Sunday # Severe protein calorie malnutrition, cachexia Severe weight loss and cachexia with very low BMI of 13.9. 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 Added MVI and check Vit D level. Protein supplement bid # Metabolic acidosis Elevated anion gap likely related to nutritional ketosis. Resolved after IVF and meals # diffuse Vascular disease, history of multiple strokes and left TCAR by Dr. Allen. high-grade KATIE stenosis and multifocal iliac and femoral stenoses bilaterally on CTA abdomen March 2025. - Resumed aspirin, Plavix, and atorvastatin (which she had discontinued on her own previously) for stroke prevention and vascular disease management - LDL 80s so can continue statin - consultation with vascular surgery can be outpatient # DVT Prophylaxis: subcu heparin twice daily she prefers DNR/DNI Medical Complexity: Medical decision making was complex, high risk for clinical deterioration morbidity, or mortality for this encounter. Unstable conditions include cognitive decline, severe protein calorie malnutrition, vascular disease, lung mass presumed malignant New problems or diagnoses today include lung mass High risk medications and treatments include aspirin, Plavix Admission and Anticipated Discharge Date Admission Date: July 30, 2025 Subjective Ate 50% of eggs and toast for breakfast, big improvement Forgetful can remember talking to pulm this AM but not what was said, forgot that family member was here this AM No pain in abdomen or chest, no nausea or dyspnea Physical Exam 2 Physical Exam: General Appearance: Extremely frail appearance. Vital signs: Reviewed past 24h vital signs in EMR, unremarkable. HEENT: Moist MM Respiratory: Clear to auscultation bilaterally, no rhonchi, rales, or wheezes. Cardiovascular: Regular rhythm, no murmurs, rubs, or gallops. Gastrointestinal: Soft, nontender, no masses, active bowel sounds. Extremities: Lower extremities warm, well perfused, no edema. Skin: Warm, dry, no rashes. Neurological: AO x self, hospital, not fully to situation and very forgetful Psychiatric: Normal. Results & Data Results & Data Vital Signs (Past 12 Hours) Vital Signs Temp Pulse Resp BP Pulse Ox O2 Del Method 07/31/25 16:05 36.7 C 82 14 152/67 H 99 Room Air 07/31/25 08:00 36.9 C 81 14 128/73 96 Room Air 07/31/25 07:57 Room Air Laboratory Results 07/30/25 12:37 07/31/25 07:37 LDL 84 TSH 1.24 CK 16 B12 254 PG Care Time/CCT Total # of Minutes Spent Total Time Spent with Patient: Total time spent is greater than 50% in coordination of care (as documented) at patient's floor/unit and/or counseling patient: Coding Level of Care Code 87091 SUB INP/OBS CARE 3/50MIN Diagnoses History of multiple strokes Z86.73 Underweight due to inadequate caloric intake R63.6 Cigarette smoker F17.210 Cognitive decline R41.89 Abnormal weight loss R63.4 Metabolic acidosis E87.20
[2025-07-31] MEDS: NICOTINE 14 MG/24 HR PATCH TD SCH (17:52)
--- NOTE | 2025-07-31 19:55 | Electrocardiogram Report ---
Test Reason : Blood Pressure : */* mmHG Vent. Rate : 93 BPM Atrial Rate : 93 BPM P-R Int : 90 ms QRS Dur : 84 ms QT Int : 354 ms P-R-T Axes : 62 75 77 degrees QTcB Int : 440 ms Sinus rhythm with short WI Otherwise normal ECG When compared with ECG of 07-Jun-2024 16:31, WI interval has decreased Confirmed by Jeremy Siddiqui ([id number]) on 07/31/2025 7:54:41 PM Referred By: REFERRED SELF Confirmed By: Jeremy Siddiqui
[2025-07-31] MEDS: GADOBUTROL 65ML VIAL IV ONE (21:13)
--- NOTE | 2025-08-01 00:32 | Magnetic Resonance Report ---
Exam(s): MRI HEAD W/WO Contrast EXAM: MR Head Without and With Intravenous Contrast CLINICAL HISTORY: Reason for exam: lung malignancy, cognitive impairment. TECHNIQUE: Magnetic resonance images of the head/brain without and with intravenous contrast in multiple planes. CONTRAST: Contrast must be dictated COMPARISON: Prior head CT from July 30, 2025. FINDINGS: Brain: Remote ischemic injuries of the right cerebellum. There is a remote ischemic injury of the right basal ganglia, capsule and thalamus. Mild nonspecific white matter changes. No mass. No hemorrhage. No acute infarct. The flow voids at the base the brain are intact. No evidence of abnormal enhancement. The dural venous sinuses are patent. Ventricles: Unremarkable. No ventriculomegaly. Bones/joints: Unremarkable. No acute fracture. Sinuses: Chronic maxillary and ethmoid sinusitis.. No acute sinusitis. Mastoid air cells: Unremarkable as visualized. No mastoid effusion. Orbits: Unremarkable as visualized. IMPRESSION: No evidence of acute intracranial pathology. No evidence of metastatic disease. Electronically signed by: Savanna Padilla MD 08/01/25 00:31 AM
[2025-08-01] MEDS: CEROVITE ADV FORMULA TAB PO SCH (09:21)
[2025-08-01] MEDS: REMOVE NICODERM PATCH SCH (09:27)
[2025-08-01 11:46] LABS: Anion Gap 8.0 (3-11); Blood Urea Nitrogen 7.0 mg/dl (6-23); Calcium 9.5 mg/dl (8.6-10.3); Carbon Dioxide 25.0 mmol/L (21-32); Chloride 108.0 mmol/L (98-107); Creatinine Clr Calc Pharmacy 78.0 ml/min; Glucose 87.0 mg/dl (70-99(Fasting)); Magnesium 1.8 mg/dl (1.7-2.4); Potassium 3.8 mmol/L (3.5-5.1); Sodium 141.0 mmol/L (136-145)
[2025-08-01] MEDS: CHOLECALCIFEROL 125 MCG (5,000 UNITS) TAB PO SCH (12:15)
[2025-08-01] MEDS: POTASSIUM CHLORIDE CRTAB 20 MEQ TABCR PO ONE (14:23)
[2025-08-01] MEDS: MAGNESIUM SULFATE / D5W 1 GM/100 ML BAG IV SCH (14:25)
--- NOTE | 2025-08-01 15:22 | Hospitalist Progress Note ---
Date of Service August 01, 2025 Assessment & Plan (1) History of multiple strokes: (2) Underweight due to inadequate caloric intake: (3) Cigarette smoker: (4) Cognitive decline: (5) Abnormal weight loss: (6) Metabolic acidosis: Plan 65-year-old woman with history of multiple strokes, ongoing tobacco use, alcohol use who is admitted with increasing confusion and forgetfulness also dramatic weight loss over the last 6 months # Cognitive decline Suspected vascular dementia due to history of multiple strokes High risk for Wernicke encephalopathy given history of alcohol use and severe weight loss. did well with attention testing delirium seems unlikely - speech therapy cognitive evaluation pending for today - Check blood levels for B12 and B1 - B12 borderline, replace with 1000 mcg IM daily x 7d then ongoing, empiric thiamine 500 mg IV q8h x 8 doses - Brain MRI: no acute intracranial pathology, no metastatic disease, old strokes in right cerebellum, right basal ganglia, capsule, nonspecific white matter changes # Left lower lung mass - identified on chest CT - consulted motorcoach operator - lesion is peripheral so IR biopsy is best approach - consult IR on Sunday re biopsy. Not available today. Npo p [place] Sunday # Severe protein calorie malnutrition, cachexia Severe weight loss and cachexia with very low BMI of 13.9. 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 Added MVI and Protein supplement bid # severe vitamin D deficiency, level was less than 7 - start replacement with cholecalciferol 125 mcg daily, once out of the hospital can take 50,000 units weekly # Metabolic acidosis Elevated anion gap likely related to nutritional ketosis. Resolved after IVF and meals # diffuse Vascular disease, history of multiple strokes and left TCAR by Dr. Allen. high-grade KATIE stenosis and multifocal iliac and femoral stenoses bilaterally on CTA abdomen March 2025. - Resumed aspirin, Plavix, and atorvastatin (which she had discontinued on her own previously) for stroke prevention and vascular disease management - LDL 80s so can continue statin - consultation with vascular surgery can be outpatient # DVT Prophylaxis: subcu heparin twice daily she prefers DNR/DNI Admission and Anticipated Discharge Date Admission Date: July 30, 2025 Subjective The patient is a 65-year-old woman experiencing cognitive decline. She is afebrile and her blood pressure is mostly normal. Her oxygen saturation is 97% on room air. Her vitamin D level is very low, less than seven. A urine test showed more than 100,000 colonies of E. coli, which is pansensitive. she does not have any dysuria Blood cultures have shown no growth at 24 hours. A brain MRI done overnight revealed no acute intracranial issues or signs of metastatic disease, but there are old strokes in multiple areas including the right cerebellum, right basal ganglia, and capsule, along with nonspecific white matter changes. She has been independent in walking around her room and performing her daily activities according to the nursing staff. Today, she reports feeling well and has no complaints. The nursing staff also noted that she has been eating about 50% of her meals, which is a significant improvement. Physical Exam Physical Exam: General Appearance: Extremely frail appearance. awake alert sitting up in bed looks less lethargic than on presentation Vital signs: Reviewed past 24h vital signs in EMR, unremarkable. HEENT: Moist MM Respiratory: Clear to auscultation bilaterally, no rhonchi, rales, or wheezes. Cardiovascular: Regular rhythm, no murmurs, rubs, or gallops. Gastrointestinal: Soft, nontender, no masses, active bowel sounds. Extremities: Lower extremities warm, well perfused, no edema. Skin: Warm, dry, no rashes. Neurological: AO x self, hospital, not fully to situation and very forgetful. unchanged Psychiatric: Normal. Results & Data Results & Data Vital Signs (Past 12 Hours) Vital Signs Temp Pulse Resp BP Pulse Ox O2 Del Method 08/01/25 14:34 36.6 C 66 16 119/69 Room Air 08/01/25 10:57 Room Air 08/01/25 07:09 36.7 C 82 16 126/71 97 Room Air Laboratory Results - Laboratory Studies: - Vitamin D: <7 - Urine: >100,000 colonies of pansensitive E. coli - Blood cultures: no growth at 24 hours - Imaging: - Brain MRI: no acute intracranial pathology, no metastatic disease, old strokes in right cerebellum, right basal ganglia, capsule, nonspecific white matter changes PG Care Time/CCT Total # of Minutes Spent Total Time Spent with Patient: Total time spent is greater than 50% in coordination of care (as documented) at patient's floor/unit and/or counseling patient: Coding Level of Care Code 43973 SUB INP/OBS CARE MIN Diagnoses History of multiple strokes Z86.73 Underweight due to inadequate caloric intake R63.6 Cigarette smoker F17.210 Cognitive decline R41.89 Abnormal weight loss R63.4 Metabolic acidosis E87.20
--- NOTE | 2025-08-01 15:24 | Hospitalist Progress Note ---
Date of Service August 01, 2025 Assessment & Plan (1) History of multiple strokes: (2) Underweight due to inadequate caloric intake: (3) Cigarette smoker: (4) Cognitive decline: (5) Abnormal weight loss: (6) Metabolic acidosis: Plan 65-year-old woman with history of multiple strokes, ongoing tobacco use, alcohol use who is admitted with increasing confusion and forgetfulness also dramatic weight loss over the last 6 months addendum # Cognitive decline Suspected vascular dementia due to history of multiple strokes High risk for Wernicke encephalopathy given history of alcohol use and severe weight loss. did well with attention testing delirium seems unlikely - speech therapy cognitive evaluation pending for today - Check blood levels for B12 and B1 - B12 borderline, replace with 1000 mcg IM daily x 7d then ongoing, empiric thiamine 500 mg IV q8h x 8 doses - Brain MRI: no acute intracranial pathology, no metastatic disease, old strokes in right cerebellum, right basal ganglia, capsule, nonspecific white matter changes # Left lower lung mass - identified on chest CT - consulted weather clerk - lesion is peripheral so IR biopsy is best approach - consult IR on Sunday re biopsy. Not available today. Npo p MN Sunday # Severe protein calorie malnutrition, cachexia Severe weight loss and cachexia with very low BMI of 13.9. 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 Added MVI and Protein supplement bid - she is at risk for refeeding syndrome check BMP mag and Phos today, replacing low normal potassium with 20 mEq p.o. and replacing low normal magnesium of 1.8 with 2 mg IV. BMP mag and Phos every morning x 3 ordered # possible UTI - mildly abnormal UA with some pyuria no dysuria cultures growing greater than 100,000 E. coli which is pansensitive. I think this is probably a contaminant however with her poor mental status and recent deterioration seems more prudent to treat it ordered Keflex 500 mg p.o. twice daily x 5 days # severe vitamin D deficiency, level was less than 7 - start replacement with cholecalciferol 125 mcg daily, once out of the hospital can take 50,000 units weekly # Metabolic acidosis Elevated anion gap likely related to nutritional ketosis. Resolved after IVF and meals # diffuse Vascular disease, history of multiple strokes and left TCAR by Dr. Allen. high-grade KATIE stenosis and multifocal iliac and femoral stenoses bilaterally on CTA abdomen March 2025. - Resumed aspirin, Plavix, and atorvastatin (which she had discontinued on her own previously) for stroke prevention and vascular disease management - LDL 80s so can continue statin - consultation with vascular surgery can be outpatient # DVT Prophylaxis: subcu heparin twice daily she prefers DNR/DNI Admission and Anticipated Discharge Date Admission Date: July 30, 2025 Results & Data Results & Data Vital Signs (Past 12 Hours) Vital Signs Temp Pulse Resp BP Pulse Ox O2 Del Method 08/01/25 14:34 36.6 C 66 16 119/69 Room Air 08/01/25 10:57 Room Air 08/01/25 07:09 36.7 C 82 16 126/71 97 Room Air PG Care Time/CCT Total # of Minutes Spent Total Time Spent with Patient: Total time spent is greater than 50% in coordination of care (as documented) at patient's floor/unit and/or counseling patient: Coding Level of Care Code 86524 SUB INP/OBS CARE 2/35MIN Diagnoses History of multiple strokes Z86.73 Underweight due to inadequate caloric intake R63.6 Cigarette smoker F17.210 Cognitive decline R41.89 Abnormal weight loss R63.4 Metabolic acidosis E87.20
[2025-08-02 07:06] LABS: Anion Gap 7.0 (3-11); Blood Urea Nitrogen 10.0 mg/dl (6-23); Calcium 9.6 mg/dl (8.6-10.3); Carbon Dioxide 26.0 mmol/L (21-32); Chloride 106.0 mmol/L (98-107); Creatinine Clr Calc Pharmacy 76.1 ml/min; Glucose 104.0 mg/dl (70-99(Fasting)); Magnesium 2.0 mg/dl (1.7-2.4); Potassium 4.1 mmol/L (3.5-5.1); Sodium 139.0 mmol/L (136-145)
--- NOTE | 2025-08-02 13:55 | Hospitalist Progress Note ---
Date of Service August 02, 2025 Assessment & Plan (1) History of multiple strokes: (2) Underweight due to inadequate caloric intake: (3) Cigarette smoker: (4) Cognitive decline: (5) Abnormal weight loss: (6) Metabolic acidosis: Plan 65-year-old woman with history of multiple strokes, ongoing tobacco use, alcohol use who is admitted with increasing confusion and forgetfulness also dramatic weight loss over the last 6 months. found to have severe malnutrition and left lower lobe lung mass # Cognitive decline Suspected vascular dementia due to history of multiple strokes High risk for Wernicke encephalopathy given history of alcohol use and severe weight loss. did well with attention testing scored 30 on MMSE by speech therapy 08/01. Has evidence of higher level cognitive deficits and medium term memory is very poor. for example this afternoon she cannot remember the discussions of the lung mass and biopsy that we had yesterday or this morning. In addition this plan is written on her whiteboard which I pointed out a few times - speech therapy cognitive evaluation pending for today - blood levels for B12 and B1 - B12 borderline, replace with 1000 mcg IM daily x 7d then ongoing, empiric thiamine 500 mg IV q8h x 8 doses - Brain MRI: no acute intracranial pathology, no metastatic disease, old strokes in right cerebellum, right basal ganglia, capsule, nonspecific white matter changes # Left lower lung mass - identified on chest CT. very suspicious for malignancy - consulted cattle manager - lesion is peripheral so IR biopsy is best approach - consult IR on Sunday re biopsy. Npo p [place] # Severe protein calorie malnutrition, cachexia Severe weight loss and cachexia with very low BMI of 13.9. 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 coli, Keflex 500 mg p.o. twice daily x 5 days # severe vitamin D deficiency, level was less than 7 - replacement with cholecalciferol 125 mcg daily, once out of the hospital can take 50,000 units weekly # Metabolic acidosis Elevated anion gap likely related to nutritional ketosis. Resolved after IVF and meals # diffuse Vascular disease, history of multiple strokes and left TCAR by Dr. Allen. high-grade KATIE stenosis and multifocal iliac and femoral stenoses bilaterally on CTA abdomen March 2025. - Resumed aspirin, Plavix, and atorvastatin (which she had discontinued on her own previously) for stroke prevention and vascular disease management - LDL 80s so can continue statin - consultation with vascular surgery can be outpatient # DVT Prophylaxis: subcu heparin twice daily she prefers DNR/DNI I updated her at bedside on 08/02 Admission and Anticipated Discharge Date Admission Date: July 30, 2025 Subjective 65-year-old female with cognitive impairment and severe weight loss, found to have a left lower lobe lung mass. Reports general malaise and fatigue, decreased appetite, consuming half of usual meals. No nausea, vomiting, or diarrhea. Mild heartburn present. Physical Exam Physical Exam: General Appearance: Awake, alert, oriented to self, hospital situation. Thin and frail. Vital signs: Reviewed past 24h vital signs in EMR, unremarkable. HEENT: Within normal limits. Respiratory: Clear bilaterally. Cardiovascular: Regular. No murmurs, rubs, gallops. Gastrointestinal: Soft, nontender, nondistended, normal bowel tones. Extremities: Warm, well perfused, no edema. Skin: Warm, dry, no rashes. Neurological: AOx4, normal speech, castaneda x 4. Poor memory cannot remember events of yesterday Psychiatric: Normal. Results & Data Results & Data Vital Signs (Past 12 Hours) Vital Signs Temp Pulse Resp BP Pulse Ox O2 Del Method 08/02/25 06:58 36.6 C 87 16 129/72 96 Room Air Diagnostic Findings - Laboratory Studies: - Sodium: 139 - Potassium: 4.1 - Creatinine: 0.42 - Magnesium: 2 - Phosphorus: 4.1 - Imaging: - CT left lower lobe lung: Suspicious mass, potential malignancy - Diagnostic Testing: - Brain MRI: Several strokes, small vessel disease PG Care Time/CCT Total # of Minutes Spent Total Time Spent with Patient: Total time spent is greater than 50% in coordination of care (as documented) at patient's floor/unit and/or counseling patient: Coding Level of Care Code 41090 SUB INP/OBS CARE 2/35MIN Diagnoses History of multiple strokes Z86.73 Underweight due to inadequate caloric intake R63.6 Cigarette smoker F17.210 Cognitive decline R41.89 Abnormal weight loss R63.4 Metabolic acidosis E87.20
[2025-08-03] MEDS: MELATONIN 3 MG TAB PO STA (02:06)
[2025-08-03 07:18] VITALS: BP 127/75; PULSE 88; RESP 16; TEMP 98.4; O2SAT 95
[2025-08-03 08:28] LABS: Anion Gap 8.0 (3-11); Blood Urea Nitrogen 10.0 mg/dl (6-23); Calcium 10.0 mg/dl (8.6-10.3); Carbon Dioxide 26.0 mmol/L (21-32); Chloride 105.0 mmol/L (98-107); Creatinine Clr Calc Pharmacy 78.0 ml/min; Glucose 94.0 mg/dl (70-99(Fasting)); Magnesium 1.9 mg/dl (1.7-2.4); Potassium 4.0 mmol/L (3.5-5.1); Sodium 139.0 mmol/L (136-145)
[2025-08-03] MEDS: ACETAMINOPHEN 325 MG TAB PO PRN (10:13)
--- NOTE | 2025-08-03 15:17 | Discharge Summary ---
Discharge Summary Date of Service August 03, 2025 Principal Dx & Hospital Course #1 = Principal Diagnosis (1) Lung mass: (2) Severe malnutrition: (3) Cognitive decline: (4) History of multiple strokes: (5) Cigarette smoker: (6) Abnormal weight loss: (7) B12 deficiency: (8) Vitamin D deficiency: (9) Stenosis of inferior mesenteric artery: (10) PAD (peripheral artery disease): Plan 65-year-old woman with history of multiple strokes, ongoing tobacco use, alcohol use who is admitted with increasing confusion and forgetfulness also dramatic weight loss over the last 6 months. found to have severe malnutrition and left lower lobe lung mass, vitamin B12 and vitamin D deficiency. Lung mass biopsy scheduled as outpatient. Empirically replacing other B vitamins and vitamin C. # Cognitive decline # Severe malnutrition. Severe weight loss and cachexia with very low BMI of 13.9. High risk for Wernicke encephalopathy given history of alcohol use and severe weight loss so was treated with course of IV thiamine, B1 level pending. did well with attention testing scored 30 on MMSE by speech therapy 08/01. Has evidence of higher level cognitive deficits and medium term memory is very poor. Denies depressive symptoms. MRI brain negative for masses, shows two old infarcts but not a lot of small vessel disease or atrophy. 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 Really only eats peanut butter (a lot) and ice cream explaining normal albumin, beer 2-3 a day, sweets, maybe a grilled cheese, does not eat meats or fruit/vegetables. Likes baked beans. Likes peas and corn and orange juice - seems to eat only rarely. - speech therapy cognitive evaluation completed - Brain MRI: no acute intracranial pathology, no metastatic disease, old strokes in right cerebellum, right basal ganglia, capsule, nonspecific white matter changes - B12 borderline and clinically deficient - replaced with 1000 mcg IM daily in hospital, started po supplement, follow up with PCP for weekly IM supplementation for 4-8 weeks - B1 level pending treated with empiric thiamine 500 mg IV q8h x 8 doses, ongoing replacement with 200 mg po daily - empirically place Niacin with nicotinamide 500 mg daily - dermatitis, cognitive problems, does not eat fruit and vegetables - empirically replace vitamin C with 1000 mg daily - dermatitis, easy bruising, does not eat fruit and vegetables - recommended eating fruit and vegetables every day - started mirtazapine to stimulate appetite - oral intake was reasonable in the hospital - about 50% of meals. Improved # Left lower lung mass - identified on chest CT. very suspicious for malignancy - consulted world designer - lesion is peripheral so IR biopsy is best approach - holding ASA and plavix for biopsy - restart as outpatient following biopsy. Technically only needs to be held 5 days, however, its unlikely she'll keep track of the exact days so better to hold. Also wasn't taking them SIDE BOSS at all. - follow up in pulmonary clinic for results, PET-CT etc # Severe protein calorie malnutrition, cachexia # possible UTI - pansensitive E. coli, Keflex 500 mg p.o. twice daily x 5 days # severe vitamin D deficiency, level was less than 7 - prescribed 50,000 units weekly # Metabolic acidosis Elevated anion gap likely related to nutritional ketosis. Resolved after IVF and meals # diffuse Vascular disease, history of multiple strokes and left TCAR by Dr. Allen. high-grade KATIE stenosis and multifocal iliac and femoral stenoses bi laterally on CTA abdomen March 2025 which seem to be asymptomatic. Is not having leg claudication/pain or abdominal pain after meals. - Resumed aspirin, Plavix, and atorvastatin (which she had discontinued on her own previously) for stroke prevention and vascular disease management - then held ASA + Plavix for lung biopsy - please resume when appropriate - LDL 80s so can continue statin - follow up with vascular surgery can be outpatient she prefers DNR/DNI I updated her at bedside on 08/03 regarding discharge plan of care Notes For Next Care Provider admitted with increasing confusion and forgetfulness also dramatic weight loss over the last 6 months. found to have severe malnutrition and left lower lobe lung mass, vitamin B12 and vitamin D deficiency. Lung mass biopsy scheduled as outpatient. Empirically replacing other B vitamins and vitamin C. Medication Changes From Visit Resume aspirin and plavix after biopsy Resume statin B12 1000 mcg po daily B1 200 mg daily Nicotinamide 500 mg daily Vitamin C 1000 mg daily Vitamin D 59999 units weekly Multivitamin with minerals Mirtazapine 15 mg HS Admission HPI Per Admitting Provider The patient is a 65-year-old woman who was brought in by EMS from her doctor's office because she was confused and having memory problems. She didn't have an appointment but showed up at Dr. Costello's office today, and he noticed she wasn't acting like herself. She left her car running and parked it incorrectly, which raised concerns about her cognitive state, so she was sent to the emergency department for evaluation. Her family mentioned that her memory has been getting worse recently. She has a history of multiple strokes, alcohol use, and cigarette smoking. Her family also said she forgets to do her chores and everyday activities and has lost 40-50 pounds in the last 6 months. Her primary care note from March was reviewed, where she was seen for weight loss, having lost about 20 pounds at that time. An iliac bruit was noted, and she was sent for a CTA of her abdomen, which showed high-grade KATIE stenosis and multifocal iliac and femoral stenoses bilaterally, about 50-60% including branch vessels. Incidental findings in her lung showed left lower lobe mucous plugging and bronchiectasis. She has aortic atherosclerosis but no aneurysm. Her TSH was normal. Cancer screening was reviewed: a low-dose chest CT in 2022 showed no malignancy; her last colonoscopy was in 2011, which she deferred due to cost; she had a Pap smear and cytology in April 2023, which were HPV negative; a mammogram was scheduled for winter 2023 but not completed; HIV and HCV screenings were negative in March 2025. Her family has noticed a gradual decline in her cognitive abilities, including forgetfulness, disorientation, getting lost while driving, and not cooking much anymore. She often forgets to turn off the stove. She denies any feelings of depression, anxiety, headaches, lightheadedness, vertigo, syncope, vision changes, mouth sores, changes in taste or smell, difficulty swallowing or chewing, shortness of breath, coughing up blood, chest pain, constipation, diarrhea, changes in bowel habits, black tarry stools, blood in stool, pain with urination, or dysuria. She sometimes has abdominal pain after eating but no nausea or vomiting. Her diet mainly consists of peanut butter, sweets, and junk food. She has chronic urinary frequency and drinks a lot of water. She has no rashes, skin lesions, breast lumps, or bumps on her neck, armpits, or groins. She doesn't have leg swelling or pain in her legs or calves when walking. She currently drinks only one beer per day at most and smokes half a pack of cigarettes per day. She lives with her and son. Discharge Exam General Appearance: Awake, alert, oriented to self, hospital situation. Thin and frail. Vital signs: Reviewed past 24h vital signs in EMR, unremarkable. Exam unchanged 08/03 HEENT: Within normal limits. Respiratory: Clear bilaterally. Cardiovascular: Regular. No murmurs, rubs, gallops. Gastrointestinal: Soft, nontender, nondistended, normal bowel tones. Extremities: Warm, well perfused, no edema. Skin: Warm, dry, no rashes. Neurological: AOx4, normal speech, castaneda x 4. Poor memory cannot remember events of yesterday Psychiatric: Normal. Discharge Plan Discharge Items Patient Disposition: Home - Self-Care Reason For Visit: COGNITIVE IMPAIRMENT, WEIGHT LOSS Discharge Diagnosis: left lower lobe lung mass, cognitive impairment, severe malnutrition Condition on Discharge: Fair Activity: Per Instructions section Non-emergency contact: Primary Care Provider, Neurologist and Family Service Aide Call non-emergency contact if: you have any medication questions and your symptoms worsen Follow-up/Referrals: Beto Bauer MD [Physician] - [facility] Padgett [facility], [facility] [Physician] - Júnior Hughes PA-C [Radiologist] - 08/19/25 (You are scheduled for a Lung Biopsy at [facility] on SundayAugust 19 at 7:30 am. Please arrive to the Main Entrance by 7:20 am and check in at the front desk coordinator. Nothing to eat or drink after midnight You must have a taxi driver to take you home You may brush your teeth and take your medications with small sips of water Please hold your aspirin and plavix until after the biopsy-a nurse will reach out to go over instructions with you If you have any questions, please call , ext [phone] ) Yeny Flores MD [Primary Care Provider] - Diet: Regular Addtl Attending Provider Instructions: You were evaluated for cognitive impairment and severe weight loss Unfortunately we found a mass in the bottom of your left lung. There is a high risk this could be a lung cancer. I made an outpatient referral for a lung biopsy with interventional radiology at [facility] on 08/19 Do not take aspirin or plavix until after the biopsy - eventually its really important to get back on these Also follow up in the pulmonary (lung) clinic. The clinic should be contacting you to schedule. The weight loss may be largely related to the lung mass. You have some vitamin deficiencies related to low oral intake and restricted diet Vitamin D deficiency - your blood level was extremely low. take 50,000 units once a week. I wrote a prescription. Vitamin B12 deficiency - your blood level was on the low side and probably deficient - continue with weekly injections for 4-8 weeks (primary care can arrange) and oral replacement 1000 mcg daily in the meantime. You can buy this in the drug store. Possible B1 deficiency - we treated with IV replacement in the hospital. blood test still pending. take thiamine (B1) 200 mg daily. You can buy this in the drug store. Possible Niacin (B3) deficiency - we don't test a level for this, we'll just replace it. Take nicotinamide 500 mg daily. You can buy this in the drug store. All the B vitamin deficiencies can cause memory problems - a "pseudo-dementia" Also take vitamin C 1000 mg per day. You can buy this in the drug store. Take a daily multivitamin with minerals. The cheapest place to get these may be [employer] or [employer]. Keep taking the atorvastatin for stroke prevention. Ask your primary care doctor to refill this. Keep eating the peanut butter and ice cream for fat, protein, and calories but please try to add in more fruits and vegetables, or you'll have vitamin deficiencies. I started you on a medication called mirtazapine to stimulate your appetite. Take at bedtime. You had bacteria in your urine, I treated with antibiotic - cephalexin - in case of UTI. Keep taking this until it runs out Take all your medication bottles to your next primary care visit (including aspirin, plavix, atorvastatin and anything else you are taking) It was a pleasure taking care of you in the hospital, Marylou Smith MD Pending Studies at Discharge: Yes (B1 level) Stand-Alone Forms: My [facility] [employer], Smoking Cessation Medications and DC Order Prescriptions: New cephalexin 500 mg Capsule 500 mg PO BID Qty: 9 0RF mirtazapine 15 mg Tablet 15 mg PO HS Qty: 30 0RF cholecalciferol (vitamin D3) 1,250 mcg (50,000 unit) capsule 50,000 unit PO .weekly Qty: 4 0RF No Action No Known Home Medications Discharge Orders: Discharge Order (Routine); Ordered 08/03/25 Ordered By: Marylou Wright/Other Patient Handouts: Eating Right Number Of Calories Admission Data Admit Date/Time: 07/30/25 16:41 Attending Provider: Marylou Smith Admit Provider: Marylou Smith Primary Care Provider: Yeny Flores Other Providers: Marylou Smith; Nic Ridley Other Interventions: Discharge Summary Assessment (RN) Last Done: 08/03/25 15:14 Hospital Stay Data Consultations 07/30/25 15:29 ED Decision to Admit Stat 07/31/25 08:47 Consult Pulmonology Routine Diagnostic Imagining Performed 07/30/25 13:10 CT head/brain wo con Stat 07/30/25 18:46 CT chest diagnostic w con Routine 07/31/25 11:38 MRI Brain [MR brain wo/w con] Urgent 08/04/25 08:00 IR biopsy lung LT CT Routine Pending Results Patient Have Any Pending Studies at Discharge: Yes (B1 level) Discharge Instructions Given to Patient (Per Discharging Provider) You were evaluated for cognitive impairment and severe weight loss Unfortunately we found a mass in the bottom of your left lung. There is a high risk this could be a lung cancer. I made an outpatient referral for a lung biopsy with interventional radiology at [facility] on 08/19 Do not take aspirin or plavix until after the biopsy - eventually its really important to get back on these Also follow up in the pulmonary (lung) clinic. The clinic should be contacting you to schedule. The weight loss may be largely related to the lung mass. You have some vitamin deficiencies related to low oral intake and restricted diet Vitamin D deficiency - your blood level was extremely low. take 50,000 units once a week. I wrote a prescription. Vitamin B12 deficiency - your blood level was on the low side and probably deficient - continue with weekly injections for 4-8 weeks (primary care can arrange) and oral replacement 1000 mcg daily in the meantime. You can buy this in the drug store. Possible B1 deficiency - we treated with IV replacement in the hospital. blood test still pending. take thiamine (B1) 200 mg daily. You can buy this in the drug store. Possible Niacin (B3) deficiency - we don't test a level for this, we'll just replace it. Take nicotinamide 500 mg daily. You can buy this in the drug store. All the B vitamin deficiencies can cause memory problems - a "pseudo-dementia" Also take vitamin C 1000 mg per day. You can buy this in the drug store. Take a daily multivitamin with minerals. The cheapest place to get these may be [employer] [facility] or [employer]. Keep taking the atorvastatin for stroke prevention. Ask your primary care doctor to refill this. Keep eating the peanut butter and ice cream for fat, protein, and calories but please try to add in more fruits and vegetables, or you'll have vitamin deficiencies. I started you on a medication called mirtazapine to stimulate your appetite. Take at bedtime. You had bacteria in your urine, I treated with antibiotic - cephalexin - in case of UTI. Keep taking this until it runs out Take all your medication bottles to your next primary care visit (including aspirin, plavix, atorvastatin and anything else you are taking) It was a pleasure taking care of you in the hospital, Marylou Smith MD Total Time Total Time Spent Total Time Spent (In Minutes): I personally spent: 65 minutes today on clinical care activities including: reviewing chart notes and vital signs reviewing labs discussion with rn progressive care examining and counseling the patient counseling the patient's family writing prescriptions, discharge instructions documentation Coding Level of Care Code 09967 INP/OBS DISCH >30 MIN Diagnoses Lung mass R91.8 Severe malnutrition E43 Cognitive decline R41.89 History of multiple strokes Z86.73 Cigarette smoker F17.210 Abnormal weight loss R63.4 B12 deficiency E53.8 Vitamin D deficiency E55.9 Stenosis of inferior mesenteric artery K55.1 PAD (peripheral artery disease) I73.9
== END 2025-08-03 16:07 | disposition home or self-care (01) | DRG 884 ==
LOC: SUATTDRO → ED 12:27 → EDINP 16:41 → 3N 21:25

== ENCOUNTER 2025-08-24 14:14 | Inpatient (IN) ==
--- NOTE | 2025-08-24 14:39 | Emergency Department Note ---
History of Present Illness General Chief complaint: Respiratory Problems Stated complaint: BREATHING PROBLEM Time Seen by Provider: 08/24/25 14:16 Source: patient and family Mode of arrival: ambulatory Limitations: no limitations History of Present Illness Patient is a 65-year-old female with history of multiple strokes, chronic tobacco use, prior alcohol use disorder and severe malnutrition who presents for productive cough and difficulty swallowing. Symptoms have been ongoing for 2 weeks since he was discharged from the hospital. She notes that she has had intractable cough productive of white phlegm. She also has difficulty swallowing food. She is able to swallow secretions and fluids. Denies any globus sensation at this time. Her also notes that her voice has become more hoarse and muffled over the past 2 days. Denies any fevers, chills, chest pain, shortness of breath, nausea, vomiting, abdominal pain. notes significant weight loss over the past 6 months. Home Medications Medication Instructions Recorded Confirmed Type cephalexin 500 mg capsule 500 mg PO BID #9 caps 08/03/25 08/24/25 Rx mirtazapine 15 mg tablet 15 mg PO HS stimulate appetite #30 08/03/25 08/24/25 Rx tabs aspirin 81 mg tablet,delayed 81 mg PO DAILY 08/24/25 08/24/25 History release atorvastatin 0 mg PO DAILY 08/24/25 08/24/25 History cholecalciferol (vitamin D3) 1,250 50,000 unit PO WK 08/24/25 08/24/25 Rx mcg (50,000 unit) capsule Allergies Allergy/AdvReac Type Severity Reaction Status Date / Time Sulfa (Sulfonamide Allergy Intermediate HIVES Verified 08/24/25 17:41 Antibiotics) Past Med/Surg History Problem List (Updated 08/24/25 @ 17:39 by Beto Rubio MD) Metastatic disease (Acute) Severe malnutrition (Acute) Bronchopneumonia (Acute) Pulmonary nodule Severe malnutrition Stenosis of inferior mesenteric artery Vitamin D deficiency B12 deficiency Mediastinal lymphadenopathy Emphysema lung Metabolic acidosis Abnormal weight loss (Acute) Cognitive decline (Acute) Alcohol use disorder, severe, dependence Rapid palpitations History of multiple strokes 01/15/23, hospitalized at [facility], d/c on 01/17/23; left arm and hand numbness, lt foot was "tingling"; f/u Dr. Allen, [facility]>no residual symptoms Memory deficit (Acute) Underweight due to inadequate caloric intake Cigarette smoker Alcohol dependence Polycythemia Nicotine dependence, cigarettes, uncomplicated Non compliance w medication regimen Internal carotid artery stent present Left carotid stenosis Medical History (Updated 08/24/25 @ 17:39 by Beto Rubio MD) PAD (peripheral artery disease) History of COVID-19 NOTED IN "ACTIVE PROBLEM LIST" IN [facility] CHART>PT DENIES HAVING COVID STATING "THAT WHEN SHE WAS AT THE HOSPITAL LAST YEAR THEY TOLD HER SHE HAD COVID, BUT I DON'T BELIEVE I DID." Left carotid stenosis Erythrocytosis Hyperlipidemia Erythrocytosis Cerebrovascular disease Polycythemia COVID-19 Tobacco abuse Surgical History Hx of nasal septoplasty Hx of colonoscopy H/O section H/O arthroscopic knee surgery [place] teeth extracted Family History Father Diabetes Thyroid disease Unknown Esophageal cancer Myocardial infarction Hypertension Social History Smoking Status: Current every day smoker Tobacco Type: Cigarettes Age Started Using Tobacco: 13; packs per day: 0.5; Cigarettes Per Day: 10; Second Hand Exposure: Yes; Do You Dip or Chew Tobacco: No; Hx Alcohol Use: Yes Alcohol type: beer Alcohol Intake Frequency: 4 or More x per/Week Hx Substance Use: No Preferred Language: Peruvian Communication Ability: Effective Visual Impairment: No Limitations Hearing Ability: Normal 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 Physical Exam Vital Signs Vital Signs - 24 hr 08/24/25 14:16 08/24/25 15:00 08/24/25 15:00 Temperature 36.4 C L Temperature Source Temporal Artery Scan Pulse Rate 87 84 Pulse Rate [Apical] 81 Pulse Rhythm Regular Pulse Rhythm [Apical] Regular Respiratory Rate 18 28 H 16 Respiratory Effort / Characteristics Non-Labored Spontaneous Non-Labored Spontaneous Respiratory Depth Normal Normal Respiratory Pattern Regular Blood Pressure 119/78 Blood Pressure [Right Arm] 158/79 H Blood Pressure Mean 91 Blood Pressure Mean [Right Arm] 105 Blood Pressure Position [Right Arm] Pulse Oximetry 95 93 94 Oxygen Delivery Method Room Air Room Air Room Air Oxygen Flow Rate Sepsis Recent Fever Within 48 Hours No Sepsis New/Unexplained Change in Mental Status No Sepsis Action Taken by Nursing No Action Required Oxygen Flow Rate - Titration Fraction of Inspired Oxygen - Titration Pulse Oximetry Post Tiitration 08/24/25 15:21 08/24/25 15:30 08/24/25 16:00 Temperature Temperature Source Pulse Rate 82 81 83 Pulse Rate [Apical] Pulse Rhythm Pulse Rhythm [Apical] Respiratory Rate 22 18 Respiratory Effort / Characteristics Respiratory Depth Respiratory Pattern Blood Pressure 149/82 H 159/69 H Blood Pressure [Right Arm] Blood Pressure Mean 123 118 Blood Pressure Mean [Right Arm] Blood Pressure Position [Right Arm] Pulse Oximetry 95 95 Oxygen Delivery Method Oxygen Flow Rate Sepsis Recent Fever Within 48 Hours Sepsis New/Unexplained Change in Mental Status Sepsis Action Taken by Nursing Oxygen Flow Rate - Titration Fraction of Inspired Oxygen - Titration Pulse Oximetry Post Tiitration 08/24/25 17:00 08/24/25 17:30 08/24/25 18:00 Temperature Temperature Source Pulse Rate 81 87 85 Pulse Rate [Apical] Pulse Rhythm Pulse Rhythm [Apical] Respiratory Rate 19 23 27 H Respiratory Effort / Characteristics Respiratory Depth Respiratory Pattern Blood Pressure 158/79 H 159/124 H 158/76 H Blood Pressure [Right Arm] Blood Pressure Mean 103 141 118 Blood Pressure Mean [Right Arm] Blood Pressure Position [Right Arm] Pulse Oximetry 96 94 90 Oxygen Delivery Method Oxygen Flow Rate Sepsis Recent Fever Within 48 Hours Sepsis New/Unexplained Change in Mental Status Sepsis Action Taken by Nursing Oxygen Flow Rate - Titration Fraction of Inspired Oxygen - Titration Pulse Oximetry Post Tiitration 08/24/25 19:25 08/24/25 20:00 08/24/25 20:44 Temperature Temperature Source Pulse Rate 84 Pulse Rate [Apical] 88 Pulse Rhythm Pulse Rhythm [Apical] Respiratory Rate 20 Respiratory Effort / Characteristics Non-Labored Spontaneous Respiratory Depth Normal Respiratory Pattern Regular Blood Pressure Blood Pressure [Right Arm] 172/80 H Blood Pressure Mean Blood Pressure Mean [Right Arm] 110 Blood Pressure Position [Right Arm] Right Lateral Pulse Oximetry 97 87 L Oxygen Delivery Method Room Air Nasal Cannula Oxygen Flow Rate 0 Sepsis Recent Fever Within 48 Hours Sepsis New/Unexplained Change in Mental Status Sepsis Action Taken by Nursing Oxygen Flow Rate - Titration 1 Fraction of Inspired Oxygen - Titration 97 Pulse Oximetry Post Tiitration 08/24/25 21:28 08/24/25 21:31 08/24/25 22:20 Temperature Temperature Source Pulse Rate 88 Pulse Rate [Apical] 98 H Pulse Rhythm Pulse Rhythm [Apical] Respiratory Rate 26 H 20 Respiratory Effort / Characteristics Non-Labored Respiratory Depth Normal Respiratory Pattern Blood Pressure 156/82 H Blood Pressure [Right Arm] 136/80 Blood Pressure Mean Blood Pressure Mean [Right Arm] 98 Blood Pressure Position [Right Arm] Sitting Pulse Oximetry 88 L 97 97 Oxygen Delivery Method Nasal Cannula Nasal Cannula Nasal Cannula Oxygen Flow Rate 1 3 3 Sepsis Recent Fever Within 48 Hours Sepsis New/Unexplained Change in Mental Status Sepsis Action Taken by Nursing Oxygen Flow Rate - Titration 3 Fraction of Inspired Oxygen - Titration Pulse Oximetry Post Tiitration 96 See below Constitutional well developed and + cachectic Eyes PERRL, conjunctivae normal, anicteric sclerae ENMT external ear and nose normal, oropharynx normal Neck No thyromegaly or nodules noted, cervical adenopathy noted bilaterally Respiratory normal respiratory effort, lungs clear to auscultation Cardiovascular RRR, no murmur, no edema Gastrointestinal (Abdomen) normal bowel sounds, soft, nontender, no hepatosplenomegaly Course Administered Medications Discontinued Medications Ceftriaxone Sodium (Rocephin) 1,000 mg in 50 mls @ 100 mls/hr IV NOW STA Stop: 08/24/25 17:38 Last Infusion: 08/24/25 18:25 Dose: Infused Documented By: Admin: 08/24/25 17:27 Dose: 100 mls/hr Documented By: SHAWNA Azithromycin (Zithromax) 500 mg in 255 mls @ 127.5 mls/hr IV NOW ONE Stop: 08/24/25 19:08 Last Infusion: 08/24/25 20:30 Dose: Infused Documented By: Admin: 08/24/25 18:24 Dose: 127.5 mls/hr Documented By: SHAWNA Ioversol (Optiray 320 100ml) 94 ml IV ONCE ONE Stop: 08/24/25 16:33 Last Admin: 08/24/25 16:32 Dose: 94 ml Documented By: JUAN Medical Decision Making Differential Diagnosis DDx includes but not limited to: Bronchopneumonia, bronchitis, pulmonary neoplasm, esophageal cancer, viral URI Medical Records Attestation: I reviewed the patient's medical records. Home Medications Current Medication List: was personally reviewed by me Laboratory Data Attestation: I reviewed the patient's lab results. 08/24/25 15:01 08/24/25 15:01 Lab Results 08/24/25 08/24/25 Range/Units 14:44 15:01 WBC 12.40 H (4.8-10.8) K/ul RBC 5.09 (4.20-5.40) M/uL Hgb 15.2 (12.0-16.0) g/dL Hct 44.9 (37.0-47.0) % MCV 88.2 (80.0-100.0) fL MCH 29.9 (25.0-34.0) pg MCHC 33.9 (32.0-36.0) g/dL RDW Std Deviation 42.0 (36.4-46.3) fL RDW Coeff of Lee 12.9 (11.5-14.5) % Plt Count 381 (130-400) K/uL MPV 10.2 (9.4-12.4) fL Immature Gran % (Auto) 0.6 % Neut % (Auto) 83.0 % Lymph % (Auto) 10.8 % [place] % (Auto) 4.1 % Eos % (Auto) 1.1 % Baso % (Auto) 0.4 % Neut # (Auto) 10.29 H (1.40-6.50) K/uL Lymph # (Auto) 1.34 (1.20-3.40) K/uL [place] # (Auto) 0.51 (0.11-0.59) K/uL Eos # (Auto) 0.14 (0.00-0.50) K/uL Baso # (Auto) 0.05 (0.00-0.20) K/uL Immature Gran # (Auto) 0.07 (0.01-0.20) K/uL Sodium 143 (136-145) mmol/L Potassium 3.6 (3.5-5.1) mmol/L Chloride 103 (98-107) mmol/L Carbon Dioxide 28 (21-32) mmol/L Anion Gap 12 H (3-11) BUN 12 (6-23) mg/dl Creatinine 0.45 L (0.6-1.2) mg/dl Est Cr Clr Drug Dosing 67.1 ml/min eGFR 106.70 BUN/Creatinine Ratio 26.7 H (10-20) Glucose 97 (70-99(Fasting)) mg/dl Calcium 10.4 H (8.6-10.3) mg/dl Total Bilirubin 0.5 (0.2-1.0) mg/dl AST 12 L (13-39) U/L ALT 9 (7-52) U/L Alkaline Phosphatase 114 H (34-104) U/L Total Protein 8.2 (6.0-8.3) gm/dl Albumin 3.9 (3.4-5.0) gm/dl Globulin 4.3 H (2.5-4.0) gm/dl Albumin/Globulin Ratio 0.9 (0.9-2) Adenovirus (PCR) Not Detected (NotDetected) B. pertussis DNA (PCR) Not Detected (NotDetected) B.parapertussis DNA PCR Not Detected (NotDetected) C. pneumoniae DNA (PCR) Not Detected (NotDetected) Coronavirus OC43 (PCR) Not Detected (NotDetected) Coronavirus HKU1 (PCR) Not Detected (NotDetected) Coronavirus 229E (PCR) Not Detected (NotDetected) SARS-CoV-2 (PCR) Not Detected (NotDetected) Coronavirus NL63 (PCR) Not Detected (NotDetected) Human Metapneumovir PCR Not Detected (NotDetected) Influenza Type A (PCR) Not Detected (NotDetected) Influenza Type B (PCR) Not Detected (NotDetected) M. pneumoniae (PCR) Not Detected (NotDetected) Parainfluenza 1 (PCR) Not Detected (NotDetected) Parainfluenza 2 (PCR) Not Detected (NotDetected) Parainfluenza 3 (PCR) Not Detected (NotDetected) Parainfluenza 4 (PCR) Not Detected (NotDetected) RSV (PCR) Not Detected (NotDetected) Entero/Rhino (PCR) Not Detected (NotDetected) Imaging Data Radiologist's Impression: Soft Tissue Neck CT 08/24/25 14:33 Clinical history: Dysphagia Technique: Axial computed tomography images were obtained of the neck after the administration of intravenous contrast Findings: There are small subcentimeter lymph nodes in the upper neck. There is partially visualized mediastinal adenopathy, described in the accompanying chest examination The salivary glands appear unremarkable. No foreign body is evident No tonsillar enlargement is seen. There is no sign of epiglottitis or prevertebral inflammation. No definite abnormality of the larynx is noted. There is a small nodule in the right thyroid lobe. The jugular veins appear patent. There is a patent stent in the proximal left internal carotid artery. The visualized paranasal sinuses and mastoid air cells appear clear. There is degenerative disc disease and osteoarthritis of the cervical spine. The lung apices appear unremarkable Impression: 1. Indeterminate thyroid nodules. A follow-up thyroid ultrasound could be obtained 2. Mediastinal adenopathy, consistent with metastatic disease Electronically signed by Chidi Degroot 08-24-2025 5:[address] 08/24/25 14:39 Technique: Axial computed tomography images were obtained of the chest after the administration of intravenous contrast Comparison is made to the prior CT dated 07/30/2025 Findings: There is no definite change in a 1.4 cm nodular opacity with irregular margins in the posterior left lower lobe, abutting the pleural surface. There is emphysema. There is no pleural effusion or pneumothorax. There is near occlusive low attenuation material in the bronchus intermedius and right lower lobe bronchus There has been interval worsening of necrotic mediastinal adenopathy. For example, a lymph node posterior to the trachea and the superior mediastinum measures 2.5 x 1.8 cm, previously 1.2 x 1.1 cm. The thoracic aorta appears unremarkable with no sign of aneurysm or dissection. There is no pericardial effusion. There is coronary atherosclerosis. There has been interval increase in size of number of low-attenuation liver lesions, concerning for metastatic disease. There are apparent small gallstones. There are multiple small and mildly enlarged intraperitoneal lymph nodes in the visualized upper abdomen. No fracture is seen. No focal osseous lesion is evident Impression: 1. Interval worsening of necrotic mediastinal adenopathy and abdominal adenopathy, consistent with metastatic disease 2. Unchanged left lower lobe nodular opacity. This is likely due to focal scarring, with bronchogenic carcinoma possible but less likely. Continued follow-up CT or PET scan could be performed 3. Emphysema 4. Material in the bronchus intermedius and right lower lobe bronchus, which may be due to mucous plugging or infectious debris 5. Interval increase in size and number of liver lesions, likely due to metastatic disease 6. Cholelithiasis ACT 112: Positive. There are findings on this exam that require communication between the performing entity and the patient following Patient Test Result Information Act ([place] ACT 112) guidelines. Electronically signed by Chidi Degroot 08-24-2025 5:04 PM ECG Data Attestation: I personally reviewed and interpreted this ECG as follows: Indication: + other (cough ) Rate (beats per minute): 82 Rhythm: + sinus rhythm ECG Intervals/blocks: + Short VA, + Normal QT and + Normal VA ECG [place]: + Normal ECG ST segments: + Normal ST segments Comparison ECG Date: from (07/30/2025) Change: no significant change Blood Pressure Blood Pressure Findings: Elevated blood pressure Blood Pressure Disposition: elevated BP felt to be situational MDM Narrative Patient is a 65-year-old female presents with persistent cough for 2 weeks as well as decreased p.o. intake. Afebrile nontoxic-appearing here today. Severely malnourished on my examination. She was recently admitted to the hospital for failure to thrive and noted to have a pulmonary nodule which is currently being worked up outpatient. She is protecting her airway though does report difficulty swallowing and change in her voice. No evidence of respiratory distress here today. Lab work and CT imaging was ordered. Lab work shows a mild leukocytosis. No evidence of endorgan damage. CMP consistent with malnutrition and failure to thrive. Viral panel negative. CT of the chest does show worsening mediastinal adenopathy and abdominal adenopathy consistent with metastatic disease. Also noted to have bronchogenic obstruction in the right lower lobe. Possibly secondary to mass versus infection. Patient was given IV antibiotics and will be admitted for pulmonary consultation and possible bronchoscopy. Stable for admission to hospitalist service. Impression & Plan Bronchopneumonia, Severe malnutrition, Metastatic disease Discharge Plan Visit Data Chief Complaint: Respiratory Problems Stated Complaint: BREATHING PROBLEM ED Provider: Beto Rubio Discharge Problem: Bronchopneumonia, Severe malnutrition, Metastatic disease Patient Disposition: Home - Self-Care Condition: Good Discharge Instructions Interventions: ED Discharge Assessment Last Done: 08/24/25 22:20 Forms Stand Alone Forms: [facility], Important Visit Information Prescriptions Prescriptions: No Action cephalexin 500 mg Capsule 500 mg PO BID Qty: 9 0RF Patient Comments: 08/24- per , pt still has some of the medication left mirtazapine 15 mg Tablet 15 mg PO HS Qty: 30 0RF aspirin [Aspir-81] 81 mg Tablet,Delayed Release (Dr/Ec) 81 mg PO DAILY Patient Comments: 08/24- per spouse, pt is supposed to be taking a daily aspirin atorvastatin 0 mg PO DAILY Patient Comments: 08/24- per spouse, pt takes medication but isnt sure of the strength. They think 5mg but arent 100% sure. No fill history available. Referrals Referrals: Yeny Flores MD [Primary Care Provider] -
[2025-08-24 15:26] LABS: Hematocrit (blood only) 44.9 % (37.0-47.0); Hemoglobin 15.2 g/dL (12.0-16.0); Immature Granulocytes # (auto) 0.07 K/uL (0.01-0.20); Immature Granulocytes % (auto) 0.6 %; Mean Corpuscular Hemoglobin 29.9 pg (25.0-34.0); Mean Corpuscular Volume 88.2 fL (80.0-100.0); Platelet Count 381 K/uL (130-400); RDW Standard Deviation 42.0 fL (36.4-46.3); Red Blood Count 5.09 M/uL (4.20-5.40); White Blood Count 12.40 K/ul (4.8-10.8)
[2025-08-24 15:45] LABS: Alanine Aminotransferase 9.0 U/L (7-52); Albumin Globulin Ratio 0.9 (0.9-2); Albumin Level 3.9 gm/dl (3.4-5.0); Alkaline Phosphatase 114.0 U/L (34-104); Anion Gap 12.0 (3-11); Bilirubin,Total 0.5 mg/dl (0.2-1.0); Blood Urea Nitrogen 12.0 mg/dl (6-23); Calcium 10.4 mg/dl (8.6-10.3); Carbon Dioxide 28.0 mmol/L (21-32); Chloride 103.0 mmol/L (98-107); Creatinine Clr Calc Pharmacy 67.1 ml/min; Globulin 4.3 gm/dl (2.5-4.0); Glucose 97.0 mg/dl (70-99(Fasting)); Potassium 3.6 mmol/L (3.5-5.1); Sodium 143.0 mmol/L (136-145); Total Protein 8.2 gm/dl (6.0-8.3)
[2025-08-24 15:45] LABS: Chlamydia pneumoniae PCR Not Detected (NotDetected); Coronavirus 229E PCR Not Detected (NotDetected); Coronavirus CoV-2 (COVID19)PCR Not Detected (NotDetected); Coronavirus HKU1 PCR Not Detected (NotDetected); Coronavirus NL63 PCR Not Detected (NotDetected); Coronavirus OC43PCR Not Detected (NotDetected); Human Metapneumovirus PCR Not Detected (NotDetected); Parainfluenza Virus 1 PCR Not Detected (NotDetected); Parainfluenza Virus 2 PCR Not Detected (NotDetected); Parainfluenza Virus 3 PCR Not Detected (NotDetected); Parainfluenza Virus 4 PCR Not Detected (NotDetected); Respiratory Syncytial VirusPCR Not Detected (NotDetected); Rhinovirus/Enterovirus PCR Not Detected (NotDetected)
[2025-08-24] MEDS: OPTIRAY 320 100ml IV ONE (16:32)
--- NOTE | 2025-08-24 17:04 | CT Scan Report ---
Technique: Axial computed tomography images were obtained of the chest after the administration of intravenous contrast Comparison is made to the prior CT dated 07/30/2025 Findings: There is no definite change in a 1.4 cm nodular opacity with irregular margins in the posterior left lower lobe, abutting the pleural surface. There is emphysema. There is no pleural effusion or pneumothorax. There is near occlusive low attenuation material in the bronchus intermedius and right lower lobe bronchus There has been interval worsening of necrotic mediastinal adenopathy. For example, a lymph node posterior to the trachea and the superior mediastinum measures 2.5 x 1.8 cm, previously 1.2 x 1.1 cm. The thoracic aorta appears unremarkable with no sign of aneurysm or dissection. There is no pericardial effusion. There is coronary atherosclerosis. There has been interval increase in size of number of low-attenuation liver lesions, concerning for metastatic disease. There are apparent small gallstones. There are multiple small and mildly enlarged intraperitoneal lymph nodes in the visualized upper abdomen. No fracture is seen. No focal osseous lesion is evident Impression: 1. Interval worsening of necrotic mediastinal adenopathy and abdominal adenopathy, consistent with metastatic disease 2. Unchanged left lower lobe nodular opacity. This is likely due to focal scarring, with bronchogenic carcinoma possible but less likely. Continued follow-up CT or PET scan could be performed 3. Emphysema 4. Material in the bronchus intermedius and right lower lobe bronchus, which may be due to mucous plugging or infectious debris 5. Interval increase in size and number of liver lesions, likely due to metastatic disease 6. Cholelithiasis ACT 112: Positive. There are findings on this exam that require communication between the performing entity and the patient following Patient Test Result Information Act ([place] ACT 112) guidelines. Electronically signed by Chidi Degroot 08-24-2025 5:04 PM
--- NOTE | 2025-08-24 17:22 | CT Scan Report ---
Clinical history: Dysphagia Technique: Axial computed tomography images were obtained of the neck after the administration of intravenous contrast Findings: There are small subcentimeter lymph nodes in the upper neck. There is partially visualized mediastinal adenopathy, described in the accompanying chest examination The salivary glands appear unremarkable. No foreign body is evident No tonsillar enlargement is seen. There is no sign of epiglottitis or prevertebral inflammation. No definite abnormality of the larynx is noted. There is a small nodule in the right thyroid lobe. The jugular veins appear patent. There is a patent stent in the proximal left internal carotid artery. The visualized paranasal sinuses and mastoid air cells appear clear. There is degenerative disc disease and osteoarthritis of the cervical spine. The lung apices appear unremarkable Impression: 1. Indeterminate thyroid nodules. A follow-up thyroid ultrasound could be obtained 2. Mediastinal adenopathy, consistent with metastatic disease Electronically signed by Chidi Degroot 08-24-2025 5:21 PM
[2025-08-24] MEDS: cefTRIAXone SODIUM 1,000 MG/50 ML BAG IV STA (17:27)
[2025-08-24] MEDS: AZITHROMYCIN 500 MG/255 ML BAG IV ONE (18:24)
--- NOTE | 2025-08-24 20:13 | History & Physical Report ---
Date of Service August 24, 2025 Assessment & Plan (1) HAP (hospital-acquired pneumonia): (2) Bronchopneumonia: (3) Metastatic disease: (4) Cancer cachexia: Plan 65-year-old woman with history of pulmonary nodule,severe malnutrition, multiple strokes, ongoing tobacco use, alcohol use who is admitted with productive cough and difficulty swallowing. #Hospital Acquired pneumonia/ Aspiration pneumonia: - Intractable productive cough with white phlegm a/w difficulty swallowing of both solid and liquid foods. - Multiple possible etiologies such as recent hospital acquired pneumonia, aspiration pneumonia, bronchopneumonia, bronchus obstruction with lung mass. - CT chest shows left lower lobe mass increased in size than before and worsening mediastinal adenopathy, right lower lobe bronchus material and multiple metastatic liver lesions and emphysema. - Ct neck shows mediastinal adenopathy. - Ceftriaxone and Azithromycin given on ED. - Ordered Zosyn and Azithromycin for anaerobic coverage in addition to atypical and gram -ve organism. -Ordered Guaifenesin and solumedrol and duonebs qid and q2hryl/PRN. - Ordered sputum culture and gram stain and MRSA nasal swab test. # Pulmonary nodule: - Suspicious for malignancy with recent increase in size of her known lower lobe pulmonary nodule identified on CT scans going back for several years and follows up with flag football coach on outpatient with recommendation of PET scan to identify metabolic activity in the lesion as well as sites of other potential uptake and guided biopsy. - [id number] history of tobacco abuse and continues to smoke till date. - Pulmonology consult placed for further intervention with PET scan/ Biopsy or possible bronchoscopy. # Severe protein calorie malnutrition, cachexia: - severe malnutrition with BMI of 12.1 -Continue Mirtazapine as appetite stimulant. -Ordered Dietary consult. -Ordered NPO diet except ice chips. #Diffuse Vascular disease, history of multiple strokes and left TCAR: - Continue Aspirin. #VTE prophylaxis: -Heparin sq. History of Present Illness Primary Care Provider: Yeny Flores MD 65 yrs old female presents to the ED due to persistent cough and difficulty swallowing. PMH of multiple strokes, ongoing tobacco use, alcohol use, severe malnutrition and left lower lobe lung mass. After the hospital discharge on 08/03, she started having persistent intractable cough with productive white sputum. She progressed to having difficulty swallowing to both solid and liquid foods. Last night, she started having choking and gasping for air like episodes and then they decided to visit the ED. mentions she also lost her voice since yesterday and haven't eaten anything other than some fluids. She has lost 60 pounds since 12 months. She is accompanied by her today who provided some history as the patient has difficulty talking on her own.She has had a known lower lobe pulmonary nodule identified on CT scans going back for several years however on most recent CT scan the nodule demonstrated to be increased in size. No H/o shortness of breath,fever, prior history of personal malignancy and no family history of lung cancer. Allergies Allergy/AdvReac Type Severity Reaction Status Date / Time Sulfa (Sulfonamide Allergy Intermediate HIVES Verified 08/24/25 17:41 Antibiotics) Home Medications Medication Instructions Recorded Confirmed Type cephalexin 500 mg capsule 500 mg PO BID #9 caps 08/03/25 08/24/25 Rx mirtazapine 15 mg tablet 15 mg PO HS stimulate appetite #30 08/03/25 08/24/25 Rx tabs aspirin 81 mg tablet,delayed 81 mg PO DAILY 08/24/25 08/24/25 History release atorvastatin 0 mg PO DAILY 08/24/25 08/24/25 History cholecalciferol (vitamin D3) 1,250 50,000 unit PO WK 08/24/25 08/24/25 Rx mcg (50,000 unit) capsule Past Med/Surg History Problem List (Updated 08/27/25 @ 02:52 by Ruperto Andersen MD) HAP (hospital-acquired pneumonia) Palliative care by specialist Advanced care planning/counseling discussion Weakness generalized Dyspnea and respiratory abnormalities Cancer cachexia Pulmonary cachexia due to COPD Declining performance status Metastatic disease (Acute) Severe malnutrition (Acute) Bronchopneumonia (Acute) Pulmonary nodule Severe malnutrition Stenosis of inferior mesenteric artery Vitamin D deficiency B12 deficiency Mediastinal lymphadenopathy Emphysema lung Metabolic acidosis Abnormal weight loss (Acute) Cognitive decline (Acute) Alcohol use disorder, severe, dependence Rapid palpitations History of multiple strokes 01/15/23, hospitalized at [facility], [place], d/c on 01/17/23; left arm and hand numbness, lt f oot was "tingling"; f/u Dr. Allen, [facility]>no residual symptoms Memory deficit (Acute) Underweight due to inadequate caloric intake Cigarette smoker Alcohol dependence Polycythemia Nicotine dependence, cigarettes, uncomplicated Non compliance w medication regimen Internal carotid artery stent present Left carotid stenosis Medical History (Updated 08/27/25 @ 02:52 by Ruperto Andersen MD) PAD (peripheral artery disease) History of COVID-19 NOTED IN "ACTIVE PROBLEM LIST" IN [facility], [place] CHART>PT DENIES HAVING COVID STATING "THAT WHEN SHE WAS AT THE HOSPITAL LAST YEAR THEY TOLD HER SHE HAD COVID, BUT I DON'T BELIEVE I DID." Left carotid stenosis Erythrocytosis Hyperlipidemia Erythrocytosis Cerebrovascular disease Polycythemia COVID-19 Tobacco abuse Surgical History Hx of nasal septoplasty Hx of colonoscopy H/O section H/O arthroscopic knee surgery [place] teeth extracted Family History Father Diabetes Thyroid disease Unknown Esophageal cancer Myocardial infarction Hypertension Social History Smoking Status: Current every day smoker Tobacco Type: Cigarettes Age Started Using Tobacco: 13; packs per day: 0.5; Cigarettes Per Day: 10; Second Hand Exposure: Yes; Do You Dip or Chew Tobacco: No; Hx Alcohol Use: Yes Alcohol type: beer Alcohol Intake Frequency: 4 or More x per/Week Hx Substance Use: No Preferred Language: Luxembourgish Communication Ability: Effective Visual Impairment: No Limitations Hearing Ability: Normal Lens Assistant Required: No Beliefs That Will Affect Care: None marital status: Current Living Situation: Spouse and Family Current Living Situation Comment: home with and son current occupational status: unemployed Other Information That Helps Us Care for You: No Feels Safe at Home: Yes Safety Concerns: Feels Safe At This Time Diet: regular caffeine: Yes Dental Care, Regularly: Yes Seatbelt Use: never Sunscreen Use: Yes Assistive Devices: Walker and Wheelchair Review of Systems Review of Systems: As per HPI. Physical Exam Constitutional: WD/WN, vitals as above Neck: trachea midline, no thyromegaly Respiratory: Coarse breath sounds bilaterally with associated rhonchi. Cardiovascular: RRR, no murmur, no edema Gastrointestinal (Abdomen): normal bowel sounds, soft, nontender, no hepatosplenomegaly Musculoskeletal: Extremities: extremities normal to inspection Skin: no rashes, warm and dry Neurologic: Nonfocal exam Lymphatic: no cervical lymphadenopathy Results & Data Results & Data Vital Signs (Past 12 Hours) Vital Signs Temp Pulse Pulse Resp BP BP Pulse Ox 08/24/25 19:25 84 08/24/25 18:00 85 27 H 158/76 H 90 08/24/25 17:30 87 23 159/124 H 94 08/24/25 17:00 81 19 158/79 H 96 08/24/25 16:00 83 18 159/69 H 95 08/24/25 15:30 81 22 149/82 H 95 08/24/25 15:21 82 08/24/25 15:00 84 16 94 08/24/25 15:00 81 28 H 158/79 H 93 08/24/25 14:16 36.4 C L 87 18 119/78 95 O2 Del Method 08/24/25 19:25 08/24/25 18:00 08/24/25 17:30 08/24/25 17:00 08/24/25 16:00 08/24/25 15:30 08/24/25 15:21 08/24/25 15:00 Room Air 08/24/25 15:00 Room Air 08/24/25 14:16 Room Air Supervising Physician Co-Signing Physician Notes Attending addendum: I have physically seen this patient, have supervised the medical residents activities, and agree with the H&P unless as otherwise noted. Assessment and Plan: The patient is a 65-year-old female with past medical history including cancer cachexia, pulmonary cachexia due to COPD, metastatic disease, severe malnutrition, B12 deficiency, vitamin D deficiency, cognitive Vang, alcohol use disorder, tobacco use disorder, and presence of internal carotid artery stent. She presents to the emergency department with intractable cough with white phlegm, shortness of breath, dyspnea exertion, and difficulty swallowing liquid and solid foods. HAP/aspiration/bronchopneumonia- Sputum culture and sensitivity [employer] testing negative CT of chest shows worsening loculated mediastinal and abdominal lymphadenopathy. Left lower lobe nodule unchanged. Significant emphysema. Plugging in bronchus intermedius and left lower lobe bronchi Received initial treatment of ceftriaxone and azithromycin IV in ED Changed to Zosyn and azithromycin IV for better anaerobic coverage and possible postobstructive process. MRSA swab Guaifenesin extended release 600 mg p.o. every 12 hours Solu-Medrol 40 mg IV every 12 hours Duonebs every 4 hours while awake and every 2 hours when necessary. Metastatic disease- Diffusely metastatic disease with possible lung cancer as origin. [id number] tobacco use history, continued smoking, but reports only a cigarette every now and then. She has a PET/CT scheduled by pulmonology. Consult pulmonology to see if bronchoscopy and/or further imaging indicated Workup in progress. Severe protein calorie malnutrition/cancer cachexia- Continue mirtazapine 15 mg at bedtime as appetite stimulant N.p.o. until evaluated in the a.m. by pulmonology for possible procedure. Alcohol dependence history- Reports no significant alcohol intake for a long time. Resident Activity Tracking Resident Involvement: Resident Care Provided Care Provided: Adult [facility]
[2025-08-24] MEDS ORDERED: MELATONIN 3 MG TAB PO PRN (23:36)
[2025-08-24] MEDS ORDERED: POLYETHYLENE (MIRALAX) 17 GM PACK PO PRN (23:36)
[2025-08-24] MEDS ORDERED: ALUMINUM/MAGNESIUM SUSP 30 ML UDC PO PRN (23:36)
[2025-08-24] MEDS ORDERED: ONDANSETRON INJ 2 MG/ML 2 ML VIAL IV PRN (23:36)
[2025-08-25] MEDS: HEPARIN SOD 5,000 UNIT/0.5 ML VIAL SQ SCH (00:21)
[2025-08-25] MEDS: PIPERACILLIN/TAZOBACTAM 4.5 GM/100 ML BAG IV ONE (00:25)
[2025-08-25] MEDS: MIRTAZAPINE TAB 15 MG TAB PO SCH (00:25)
[2025-08-25] MEDS: guaiFENesin 600 MG TABCR PO SCH (00:25)
[2025-08-25] MEDS: SODIUM CHLORIDE 0.9% 1,000 ML IV SCH (01:26)
[2025-08-25] MEDS: LACTATED RINGER'S 1,000 ML IV SCH (01:40)
[2025-08-25] MEDS: PIPERACILLIN/TAZOBACTAM 4.5 GM/100 ML BAG IV SCH (05:28)
[2025-08-25] MEDS: ALBUT/IPRATROP 3MG/0.5MG NEB 3 ML VIAL NEB SCH (07:17)
--- NOTE | 2025-08-25 08:34 | Hospitalist Progress Note ---
Date of Service August 25, 2025 Assessment & Plan (1) Pulmonary nodule: (2) Metastatic disease: (3) Severe malnutrition: (4) Mediastinal lymphadenopathy: (5) Alcohol use disorder, severe, dependence: (6) Cigarette smoker: Plan 65-year-old woman with history of pulmonary nodule,severe malnutrition, multiple strokes, ongoing tobacco use, alcohol use who is admitted with productive cough and difficulty swallowing. #Pneumonia - Intractable productive cough with white phlegm a/w difficulty swallowing of both solid and liquid foods. - Multiple possible etiologies such as recent hospital acquired pneumonia, aspiration pneumonia, bronchopneumonia, bronchus obstruction with lung mass. - CT chest & neck w/ emphysema, LLL mass recently increased in size, worsening necrotic mediastinal adenopathy, obstructive material in bronchus intermedius and RLL bronchus, and multiple liver lesions suspicious for metastasis - Sputum culture pending. MRSA nares negative. - Ceftriaxone and Azithromycin given in ED. Changed to Zosyn + Azithromycin on admission for anaerobic + atypical + gram-neg coverage. - Guaifenesin, solu-medrol, duonebs, supplemental oxygen for symptom relief #Pulmonary nodule - Patient does have a [id number] history of tobacco abuse and continues to smoke till date. - Recent increase in size of her LLL pulmonary nodule, identified on CT scans for several years. Patient does follow with guide changer outpatient. Recent recommendation of PET scan to identify metabolic activity in the lesion, as well as other potential sites of uptake, and guided biopsy. PET not yet scheduled to patient's knowledge. Bx was scheduled but could not be performed d/t pt's blood thinners. Plavix now complete (after 1 year DAPT). Pt did recieve aspirin today, but can hold further doses pending pulm recs - Pulmonology consult, re: PET vs bronch vs bx, appreciate recs # Severe protein calorie malnutrition, cachexia: - Severe malnutrition with BMI of 11.5 - Nutrition consulted, appreciate recs - Continue Mirtazapine #Diffuse vascular disease, h/o multiple strokes, h/o left TCAR - DAPT complete. Potential hold on Aspirin after today's dose - Pt previously on atorvastatin 40mg daily. Unsure when or why discontinued. Anticipate restarting, dose may change VTE ppx: Heparin sq - pt has been refusing Diet: Will keep regular diet w/o restrictions. Concern for nutrition > concern for aspiration Code: after explicit discussion w/ patient, she expressed choice for DNR/DNI Admission and Anticipated Discharge Date Admission Date: August 24, 2025 Supervising Physician Co-Signing Physician Notes I personally examined the patient and verified north points of history and exam, discussed case, and agree with decision making and plan documented by Dr. Dimas. Patient is a 65-year-old female with past medical history pertinent for CVA, vascular disease, pulmonary nodule, severe malnutrition, alcohol use disorder, and tobacco use disorder presenting with persistent cough, dysphagia, and we akness on admission for pneumonia in setting of presumed metastatic lung cancer. Conversation at bedside with patient and her family alongside palliative medicine to discuss goals of care. Will have a conversation tomorrow to include patient's children. Continue IV antibiotics and steroids. Patient currently on room air with appropriate saturations. Subjective Saw patient this morning. She was struggling to breathe, and really could not speak, over her secretions. Did answer yes/no questions, indicating no acute pain, no scheduled PET scan, and cancelled lung biopsy (per chart review, it seems bx not able to be performed due to pt being on aspirin & plavix). RT was present and planned to NT suction her. Revisited a few hours later and patient was doing much better. On room air. Able to speak in short sentences. Fully oriented and was able to describe her situation. Denied any BUTTS, CP, palpitations, abd pain, n/v/d, numbness/tingling. Does have some weakness and difficulty breathing. Does not feel like her appetite is poor and did not seem concerned regarding her weight loss. Review of Systems Review of Systems: As per HPI. Physical Exam Physical Exam: Gen: NAD, well-developed, cachectic HEENT: NCAT, normal conjunctiva, MMM, trachea midline CV: RRR, no m/r/g, S1/S2 normal, no LE edema Resp: Diffusely coarse lung sounds, symmetrical chest rise, breathing non- labored Abd: Soft, NT/ND, +BS Skin: Warm, dry, well-perfused Neuro: AOx3, CN II-XII grossly intact, no focal deficits Results & Data Results & Data Vital Signs (Past 12 Hours) Vital Signs Temp Pulse Pulse Pulse Resp BP BP 08/25/25 07:56 36.6 C 81 18 129/77 08/25/25 07:22 96 H 20 08/25/25 07:21 81 08/25/25 04:00 36.6 C 85 18 151/71 H 08/24/25 22:51 93 H 08/24/25 22:46 36.5 C 93 H 20 145/76 H 08/24/25 22:45 08/24/25 22:20 88 20 156/82 H 08/24/25 21:31 98 H 26 H 136/80 08/24/25 21:28 08/24/25 20:44 Pulse Ox O2 Del Method O2 Flow Rate 08/25/25 07:56 87 L Nasal Cannula 7 08/25/25 07:22 96 Nasal Cannula 3 08/25/25 07:21 08/25/25 04:00 92 Nasal Cannula 3 08/24/25 22:51 08/24/25 22:46 97 Nasal Cannula 3 08/24/25 22:45 Nasal Cannula 3 08/24/25 22:20 97 Nasal Cannula 3 08/24/25 21:31 97 Nasal Cannula 3 08/24/25 21:28 88 L Nasal Cannula 1 08/24/25 20:44 87 L Nasal Cannula 0 Resident Activity Tracking Resident Involvement: Resident Care Provided Care Provided: Adult Hospital Medicine
[2025-08-25] MEDS: ASPIRIN 81 MG ECTAB PO SCH (08:36)
--- NOTE | 2025-08-25 11:51 | Palliative Care Consultation ---
Date of Consultation August 25, 2025 Assessment & Plan (1) Dyspnea and respiratory abnormalities: (2) Cancer cachexia: (3) Advanced care planning/counseling discussion: A 60 min face to face ACP was held with pt, Aubrey, sister and sister in law at bedside. Leisa shares she is leaning away from pursuing biopsy. We discussed with her that this is reasonable given overall acuity/clinical decline/PS and FTT, her decisions will be supported. We spoke about her declining PS - not having reserve to pursue aggressive treatment. We also discussed that a biopsy would give her options (chemo/radiation/resection/palliative), however in current state she is not a candidate for chemo as it would be too toxic. Disease progression in short span of time has been significant. She reiterates shes not really interested in a biopsy. Her [id number] was asking about a PET scan, but pt noted why bother with this if it is not going to change her outcome and she does not want to bother with it. Her goal is to be at home. Family asked about hospice: I provided education about the hospice benefit: an interdisciplinary program offered by nurses, nurses aides, social workers, chaplains and a medical videographer for patients with a terminal condition and a life expectancy of less than 6 months. This is covered by Medicare at 100%/no out of pocket expense to patient and all meds/supplies needed by patient for the reason they are on hospice are paid for/covered by hospice. The goal is assure quality of life of the patient in their home setting (home, longterm, inpatient hospice setting) by providing symptoms management, psychosocial and spiritual support. However, they cannot offer 24 hours care and if the family is unable to provide that care, they will have to consider personal care with out of pocket cost vs. longterm placement. We discussed the goals of hospice as a patient service and the goals of care; we discussed EOL trajectories and transitions ahsan the emotional impact of realizing mortality as a concrete reality from prior abstract considerations. Pt was reassured that no matter where they are along this trajectory, they are not alone - their medical team will remain by their side through their journey. Discussed the pros/cons of accepting help when especially weakened and distressed by pain-which would also help provide relief/decrease caregiver burden/strain. Her sister notes there is limited caregiver support: sister and sister in law do not live nearby. ALFRED has a sick parent she cares for and that parent is also currently IP at [facility]. Sister does not like winter, does not drive in bad weather or the snow, so her availability is limited. , Aubrey, has had a stroke and is weakened - he has limited ability. They are friends with owners at [facility] and will meet there to see if a bed can be accommodated for pt. (4) Pulmonary cachexia due to COPD: (5) Weakness generalized: (6) Palliative care by specialist: Plan As above Family to discuss tonight, want to include their children Home hospice does not seem feasible, not enough caregiver support Likely dc on [employer] to SNF, family wants [facility] Thank you for allowing us to participate in the ongoing care of this patient. Please page with any additional concerns. Cris Serrano DNP Director, Palliative Medicine History of Present Illness Reason for Consultation: probably metastatic lung ca with poor performance Attending Physician: Pamela Luong, History of Present Illness Per admitting note, Leisa is a 65yo female "presents to the ED due to persistent cough and difficulty swallowing. PMH of multiple strokes, ongoing tobacco use, alcohol use, severe malnutrition and left lower lobe lung mass. After the hospital discharge on 08/03, she started having persistent intractable cough with productive white sputum. She progressed to having difficulty swallowing to both solid and liquid foods. Last night, she started having choking and gasping for air like episodes and then they decided to visit the ED. mentions she also lost her voice since yesterday and haven't eaten anything other than some fluids. She has +unintentional 70+ lbs weight loss along with confusion. She is accompanied by her today who provided some history as the patient has difficulty talking on her own.She has had a known lower lobe pulmonary nodule identified on CT scans going back for several years however on most recent CT scan the nodule demonstrated to be increased in size." recent admission 07/30 to 08/02 for ?confusion,, found to have severe malnutrition and LLL mass She has a history of multiple strokes but is currently not on any medication due to personal preference. She resides with her son and . She is a 60 PY h/o tobacco abuse, +active smoker 1/2 to 1 PPD. + h/o abnormal lung CT scans She is seen bedside with , sister and sister in law They share she has been falling multiple times every day, they are worried about her safety states they are personal friends with owners of [employer] and he is going to stop by to speak with them and see if they can take her there for comfort care with hospice CT Scan 08/24/25: 1. Interval worsening of necrotic mediastinal adenopathy and abdominal adenopathy, consistent with metastatic disease 2. Unchanged left lower lobe nodular opacity. This is likely due to focal scarring, with bronchogenic carcinoma possible but less likely. Continued follow-up CT or PET scan could be performed 3. Emphysema 4. Material in the bronchus intermedius and right lower lobe bronchus, which may be due to mucous plugging or infectious debris 5. Interval increase in size and number of liver lesions, likely due to metastatic disease 6. Cholelithiasis Chest CT 07/30/25 1. Suspicious enlarging soft tissue process in the posterior basal left lower lobe. This is significantly increased in size since a previous study of 02/28/2023 and the possibility of enlarging malignant neoplasm is considered. Pulmonary medicine follow up recommended. Further imaging evaluation with PET/CT would BE quite useful. 2. Diffuse emphysematous COPD. 3. Moderate coronary artery calcifications. 08/21/[address] Rizo: "1. Pulmonary nodule: Suspicious for malignancy. Sterling predictive model indicates probability somewhere between 40 and 60% of malignancy. Doubling time difficult to calculate due to measurements of the nodule. Recommend proceeding with PET scan to identify metabolic activity in the lesion as well as sites of other potential uptake. This would guide biopsy moving forward. The patient is in agreement. The lesion is amenable to robotic navigational bronchoscopy which depending on the PET scan will be scheduled if there are no other sites of metabolic activity to guide biopsy moving forward. 2. COPD: Will assess with full PFTs for severity. Hold on inhalers for now. 3. Importance of smoking cessation was stressed to the patient. 4. The small pulmonary nodule is unlikely to account for the patient's severe systemic complaints and recommend that she continue to follow with her primary care provider for evaluation of her significant unintentional weight loss." Allergies Allergy/AdvReac Type Severity Reaction Status Date / Time Sulfa (Sulfonamide Allergy Intermediate HIVES Verified 08/24/25 17:41 Antibiotics) Home Medications Medication Instructions Recorded Confirmed Type cephalexin 500 mg capsule 500 mg PO BID #9 caps 08/03/25 08/24/25 Rx mirtazapine 15 mg tablet 15 mg PO HS stimulate appetite #30 08/03/25 08/24/25 Rx tabs aspirin 81 mg tablet,delayed 81 mg PO DAILY 08/24/25 08/24/25 History release atorvastatin 0 mg PO DAILY 08/24/25 08/24/25 History cholecalciferol (vitamin D3) 1,250 50,000 unit PO WK 08/24/25 08/24/25 Rx mcg (50,000 unit) capsule Patient History Medical History (Updated 08/25/25 @ 15:39 by Ashly Serrano DNP) PAD (peripheral artery disease) History of COVID-19 NOTED IN "ACTIVE PROBLEM LIST" IN [facility] CHART>PT DENIES HAVING COVID STATING "THAT WHEN SHE WAS AT THE HOSPITAL LAST YEAR THEY TOLD HER SHE HAD COVID, BUT I DON'T BELIEVE I DID." Left carotid stenosis Erythrocytosis Hyperlipidemia Erythrocytosis Cerebrovascular disease Polycythemia COVID-19 Tobacco abuse Surgical History Hx of nasal septoplasty Hx of colonoscopy H/O section H/O arthroscopic knee surgery [place] teeth extracted Family History Father Diabetes Thyroid disease Unknown Esophageal cancer Myocardial infarction Hypertension Social History Smoking Status: Current every day smoker Tobacco Type: Cigarettes Age Started Using Tobacco: 13; packs per day: 0.5; Cigarettes Per Day: 10; Second Hand Exposure: Yes; Do You Dip or Chew Tobacco: No; Hx Alcohol Use: Yes Alcohol type: beer Alcohol Intake Frequency: 4 or More x per/Week Hx Substance Use: No Preferred Language: Hebrew Communication Ability: Effective Visual Impairment: No Limitations Hearing Ability: Normal Trackwalker Required: No Beliefs That Will Affect Care: None marital status: Current Living Situation: Spouse and Family Current Living Situation Comment: home with and son current occupational status: unemployed Other Information That Helps Us Care for You: No Feels Safe at Home: Yes Safety Concerns: Feels Safe At This Time Diet: regular caffeine: Yes Dental Care, Regularly: Yes Seatbelt Use: never Sunscreen Use: Yes Assistive Devices: Walker and Wheelchair Review of Systems Review of Systems: All systems reviewed & are unremarkable except as noted in Subjective Physical Exam Physical Exam: Frail, cachectic ill appearing female very poor dentition with missing teeth, caries Bitemp wasting perrla, eomi's neck supple, no stridor chest diminished, inc effort, +use of accessory muscles,+wheezing tachy S1S2 Abd scaphoid, BS diminished Gen weakness, diminished strength AAO x3 Mood stable, engaging and cooperative Skin pale, cool to touch mild cyanosis at nailbeds Results & Data Vital Signs (Past 12 Hours) Vital Signs Temp Pulse Pulse Resp BP Pulse Ox O2 Del Method 08/25/25 11:33 36.5 C 81 16 126/73 97 Room Air 08/25/25 11:17 80 18 91 Room Air 08/25/25 08:29 Room Air 08/25/25 07:56 36.6 C 81 18 129/77 87 L Nasal Cannula 08/25/25 07:22 96 H 20 96 Nasal Cannula 08/25/25 07:21 81 08/25/25 04:00 36.6 C 85 18 151/71 H 92 Nasal Cannula O2 Flow Rate 08/25/25 11:33 08/25/25 11:17 08/25/25 08:29 08/25/25 07:56 7 08/25/25 07:22 3 08/25/25 07:21 08/25/25 04:00 3 Laboratory Results 08/25/25 08/24/25 08/24/25 Range/Units 00:00 15:01 14:44 WBC 12.40 H (4.8-10.8) K/ul RBC 5.09 (4.20-5.40) M/uL Hgb 15.2 (12.0-16.0) g/dL Hct 44.9 (37.0-47.0) % MCV 88.2 (80.0-100.0) fL MCH 29.9 (25.0-34.0) pg MCHC 33.9 (32.0-36.0) g/dL RDW Std Deviation 42.0 (36.4-46.3) fL RDW Coeff of Lee 12.9 (11.5-14.5) % Plt Count 381 (130-400) K/uL MPV 10.2 (9.4-12.4) fL Immature Gran % (Auto) 0.6 % Neut % (Auto) 83.0 % Lymph % (Auto) 10.8 % [place] % (Auto) 4.1 % Eos % (Auto) 1.1 % Baso % (Auto) 0.4 % Neut # (Auto) 10.29 H (1.40-6.50) K/uL Lymph # (Auto) 1.34 (1.20-3.40) K/uL [place] # (Auto) 0.51 (0.11-0.59) K/uL Eos # (Auto) 0.14 (0.00-0.50) K/uL Baso # (Auto) 0.05 (0.00-0.20) K/uL Immature Gran # (Auto) 0.07 (0.01-0.20) K/uL Sodium 143 (136-145) mmol/L Potassium 3.6 (3.5-5.1) mmol/L Chloride 103 (98-107) mmol/L Carbon Dioxide 28 (21-32) mmol/L Anion Gap 12 H (3-11) BUN 12 (6-23) mg/dl Creatinine 0.45 L (0.6-1.2) mg/dl Est Cr Clr Drug Dosing 67.1 ml/min eGFR 106.70 BUN/Creatinine Ratio 26.7 H (10-20) Glucose 97 (70-99(Fasting)) mg/dl Calcium 10.4 H (8.6-10.3) mg/dl Total Bilirubin 0.5 (0.2-1.0) mg/dl AST 12 L (13-39) U/L ALT 9 (7-52) U/L Alkaline Phosphatase 114 H (34-104) U/L Total Protein 8.2 (6.0-8.3) gm/dl Albumin 3.9 (3.4-5.0) gm/dl Globulin 4.3 H (2.5-4.0) gm/dl Albumin/Globulin Ratio 0.9 (0.9-2) Nasal Screen MRSA (PCR) Negative (Negative) Adenovirus (PCR) Not Detected (NotDetected) B. pertussis DNA (PCR) Not Detected (NotDetected) B.parapertussis DNA PCR Not Detected (NotDetected) C. pneumoniae DNA (PCR) Not Detected (NotDetected) Coronavirus OC43 (PCR) Not Detected (NotDetected) Coronavirus HKU1 (PCR) Not Detected (NotDetected) Coronavirus 229E (PCR) Not Detected (NotDetected) SARS-CoV-2 (PCR) Not Detected (NotDetected) Coronavirus NL63 (PCR) Not Detected (NotDetected) Human Metapneumovir PCR Not Detected (NotDetected) Influenza Type A (PCR) Not Detected (NotDetected) Influenza Type B (PCR) Not Detected (NotDetected) M. pneumoniae (PCR) Not Detected (NotDetected) Parainfluenza 1 (PCR) Not Detected (NotDetected) Parainfluenza 2 (PCR) Not Detected (NotDetected) Parainfluenza 3 (PCR) Not Detected (NotDetected) Parainfluenza 4 (PCR) Not Detected (NotDetected) RSV (PCR) Not Detected (NotDetected) Entero/Rhino (PCR) Not Detected (NotDetected) Diagnostic Findings Soft Tissue Neck CT 08/24/25 14:33 Clinical history: Dysphagia Technique: Axial computed tomography images were obtained of the neck after the administration of intravenous contrast Findings: There are small subcentimeter lymph nodes in the upper neck. There is partially visualized mediastinal adenopathy, described in the accompanying chest examination The salivary glands appear unremarkable. No foreign body is evident No tonsillar enlargement is seen. There is no sign of epiglottitis or prevertebral inflammation. No definite abnormality of the larynx is noted. There is a small nodule in the right thyroid lobe. The jugular veins appear patent. There is a patent stent in the proximal left internal carotid artery. The visualized paranasal sinuses and mastoid air cells appear clear. There is degenerative disc disease and osteoarthritis of the cervical spine. The lung apices appear unremarkable Impression: 1. Indeterminate thyroid nodules. A follow-up thyroid ultrasound could be obtained 2. Mediastinal adenopathy, consistent with metastatic disease Electronically signed by Chidi Degroot 08-24-2025 5:[address] 08/24/25 14:39 Technique: Axial computed tomography images were obtained of the chest after the administration of intravenous contrast Comparison is made to the prior CT dated 07/30/2025 Findings: There is no definite change in a 1.4 cm nodular opacity with irregular margins in the posterior left lower lobe, abutting the pleural surface. There is emphysema. There is no pleural effusion or pneumothorax. There is near occlusive low attenuation material in the bronchus intermedius and right lower lobe bronchus There has been interval worsening of necrotic mediastinal adenopathy. For example, a lymph node posterior to the trachea and the superior mediastinum measures 2.5 x 1.8 cm, previously 1.2 x 1.1 cm. The thoracic aorta appears unremarkable with no sign of aneurysm or dissection. There is no pericardial effusion. There is coronary atherosclerosis. There has been interval increase in size of number of low-attenuation liver lesions, concerning for metastatic disease. There are apparent small gallstones. There are multiple small and mildly enlarged intraperitoneal lymph nodes in the visualized upper abdomen. No fracture is seen. No focal osseous lesion is evident Impression: 1. Interval worsening of necrotic mediastinal adenopathy and abdominal adenopathy, consistent with metastatic disease 2. Unchanged left lower lobe nodular opacity. This is likely due to focal scarring, with bronchogenic carcinoma possible but less likely. Continued follow-up CT or PET scan could be performed 3. Emphysema 4. Material in the bronchus intermedius and right lower lobe bronchus, which may be due to mucous plugging or infectious debris 5. Interval increase in size and number of liver lesions, likely due to metastatic disease 6. Cholelithiasis ACT 112: Positive. There are findings on this exam that require communication between the performing entity and the patient following Patient Test Result Information Act ([place] ACT 112) guidelines. Electronically signed by Chidi Degroot 08-24-2025 5:04 PM PG Care Time/CCT Total # of Minutes Spent Total Time Spent with Patient: Total time spent is greater than 50% in coordination of care (as documented) at patient's floor/unit and/or counseling patient: I spent 125 minutes overall addressing this case: 15 min in medical data review/discussion with referring provider(s) and/or preparation for the visit 20 min in direct interaction with the patient/exam 60 min in Advance Care Planning/Goals of Care discussions as detailed above in note (must be >16min) 15 min in subsequent review and synthesis of assessment and plan 15 min communicating with other providers regarding the patient's case: Advanced Care Planning 60103 Advanced Care Planning Additional 30 [place] [address] IN/OBS CONSULT LVL 5,80M Patient Type New History Comprehensive Exam Comprehensive Medical Decision Making High Complexity Diagnoses Dyspnea and respiratory abnormalities R06.00; R06.89 Cancer cachexia R64 Advanced care planning/counseling discussion Z71.89 Pulmonary cachexia due to COPD R64; J44.9 Weakness generalized R53.1 Palliative care by specialist Z51.5 Additional Codes Advanced Care Planning - 69933 Advanced Care Planning Additional 30 Min: 89071 Advanced Care Planning Additional 30 Min ([id number]) Comment [id number], [id number]
--- NOTE | 2025-08-25 11:59 | Pulmonary Consultation ---
Date of Consultation August 25, 2025 Assessment & Plan (1) Metastatic disease: Patient appears to have diffusely metastatic disease possibly lung cancer in origin (possible small cell lung cancer) versus invasive infective process. I discussed with radiology (Maximiliano Hughes) regarding potential biopsy sites. He recommended that we obtain a CT of the abdomen/pelvis with contrast to evaluate for any bony lesions that may be amenable to biopsy which would also allow us to biopsy sooner since she is currently on aspirin and aspirin would need to be held for 5 days to undergo a liver biopsy. Will also order an ultrasound of her neck to evaluate for any potential safe lymph nodes that would be amenable to biopsy in the supraclavicular space. EBUS transbronchial needle aspiration can be considered as well although the lymph nodes are largely necrotic and the sample may be degraded and not yield a diagnosis. She is also a high risk to undergo anesthesia given her severe frailty and a less invasive biopsy such as liver biopsy, lymph node biopsy of the supraclavicular space or bony biopsy would be preferable as this would also upstage cancer. Given her poor performance status and evidence of metastatic disease, I have consulted palliative care medicine. Will appreciate their input. (2) Severe malnutrition: Recommend nutrition consult (3) Declining performance status: Palliative care medicine consult as above. Plan Pulmonary will continue to follow along with you. Thank you for the consult. I personally spent 75 minutes on the date of service in activities related to this patient's encounter, including 45 minutes of counseling with patient regarding treatment plan and 30 minutes of clinical review of lab results and documentation. I did certified drug counselor the patient regarding their diagnosis and treatment plan and they expressed understanding. This note was dictated using voice recognition software and may include grammatical errors, extra words, word substitutions and other inaccuracies due to errors in the voice recognition software and differences in speech patterns. History of Present Illness Reason for Consultation: "lung mass" Attending Physician: Pamela Luong DO History of Present Illness 65-year-old female with a history of COPD and extensive tobacco abuse since the age of 14 who was last seen by Dr. Rizo in the pulmonary clinic 08/21/2025 for evaluation of a pulmonary nodule seen in her left lower lobe which has been slowly increasing in size. She was originally referred to interventional radiology for biopsy and then she was referred to pulmonary medicine for navig ational bronchoscopy. She had about a 50 pound weight loss over the past year. She is fatigued chronically and has a very weak voice. She comes to the hospital due to increased cough and shortness of breath. CT chest revealed bulky necrotic adenopathy in her chest and numerous metastatic liver lesions. Debris was also noted in the bronchus intermedius consistent with aspiration pneumonia. She is saturating well on room air. She is very weak. Allergies Allergy/AdvReac Type Severity Reaction Status Date / Time Sulfa (Sulfonamide Allergy Intermediate HIVES Verified 08/24/25 17:41 Antibiotics) Home Medications Medication Instructions Recorded Confirmed Type cephalexin 500 mg capsule 500 mg PO BID #9 caps 08/03/25 08/24/25 Rx mirtazapine 15 mg tablet 15 mg PO HS stimulate appetite #30 08/03/25 08/24/25 Rx tabs aspirin 81 mg tablet,delayed 81 mg PO DAILY 08/24/25 08/24/25 History release atorvastatin 0 mg PO DAILY 08/24/25 08/24/25 History cholecalciferol (vitamin D3) 1,250 50,000 unit PO WK 08/24/25 08/24/25 Rx mcg (50,000 unit) capsule Patient History Medical History (Updated 08/25/25 @ 13:00 by Mani Allen MD) PAD (peripheral artery disease) History of COVID-19 NOTED IN "ACTIVE PROBLEM LIST" IN [facility] CHART>PT DENIES HAVING COVID STATING "THAT WHEN SHE WAS AT THE HOSPITAL LAST YEAR THEY TOLD HER SHE HAD COVID, BUT I DON'T BELIEVE I DID." Left carotid stenosis Erythrocytosis Hyperlipidemia Erythrocytosis Cerebrovascular disease Polycythemia COVID-19 Tobacco abuse Surgical History Hx of nasal septoplasty Hx of colonoscopy H/O section H/O arthroscopic knee surgery [place] teeth extracted Family History Father Diabetes Thyroid disease Unknown Esophageal cancer Myocardial infarction Hypertension Social History Smoking Status: Current every day smoker Tobacco Type: Cigarettes Age Started Using Tobacco: 13; packs per day: 0.5; Cigarettes Per Day: 10; Second Hand Exposure: Yes; Do You Dip or Chew Tobacco: No; Hx Alcohol Use: Yes Alcohol type: beer Alcohol Intake Frequency: 4 or More x per/Week Hx Substance Use: No Preferred Language: Bruneian Communication Ability: Effective Visual Impairment: No Limitations Hearing Ability: Normal Pilot Boat Operator Required: No Beliefs That Will Affect Care: None marital status: Current Living Situation: Spouse and Family Current Living Situation Comment: home with and son current occupational status: unemployed Other Information That Helps Us Care for You: No Feels Safe at Home: Yes Safety Concerns: Feels Safe At This Time Diet: regular caffeine: Yes Dental Care, Regularly: Yes Seatbelt Use: never Sunscreen Use: Yes Assistive Devices: Denture - Upper and Glasses Review of Systems Review of Systems: All systems reviewed & are unremarkable except as noted in HPI & below Physical Exam Constitutional: Cachectic and frail Neck: trachea midline, no thyromegaly Respiratory: normal respiratory effort, lungs clear to auscultation Cardiovascular: RRR, no murmur, no edema Gastrointestinal (Abdomen): normal bowel sounds, soft, nontender, no hepatosplenomegaly Musculoskeletal: Extremities: extremities normal to inspection Skin: no rashes, warm and dry Neurologic: Nonfocal exam Lymphatic: no cervical lymphadenopathy Results & Data Results & Data Vital Signs (Past 12 Hours) Vital Signs Temp Pulse Pulse Resp BP Pulse Ox O2 Del Method 08/25/25 11:33 36.5 C 81 16 126/73 97 Room Air 08/25/25 11:17 80 18 91 Room Air 08/25/25 08:29 Room Air 08/25/25 07:56 36.6 C 81 18 129/77 87 L Nasal Cannula 08/25/25 07:22 96 H 20 96 Nasal Cannula 08/25/25 07:21 81 08/25/25 04:00 36.6 C 85 18 151/71 H 92 Nasal Cannula O2 Flow Rate 08/25/25 11:33 08/25/25 11:17 08/25/25 08:29 08/25/25 07:56 7 08/25/25 07:22 3 08/25/25 07:21 08/25/25 04:00 3 PG Care Time/CCT Total # of Minutes Spent Total Time Spent with Patient: Total time spent is greater than 50% in coordination of care (as documented) at patient's floor/unit and/or counseling patient: Coding Level of Care Code 04391 INT INP/OBS CARE 3/75MIN Diagnoses Metastatic disease C79.9 Severe malnutrition E43 Declining performance status R53.81
[2025-08-25] MEDS: OPTIRAY 320 100ml IV ONE (14:46)
--- NOTE | 2025-08-25 15:50 | CT Scan Report ---
ABDOMEN AND PELVIS CT WITH IV CONTRAST CT DOSE: 286.74 mGy.cm HISTORY: Acute generalized pain of the lower abdomen and pelvis pelvic/bony mets for bx? TECHNIQUE: Multiaxial CT images of the abdomen and pelvis were performed following the IV administrat ion of 90 cc of Optiray, A dose lowering technique was utilized adhering to the principles of ALARA. COMPARISON STUDY: Chest CT 08/24/2025, CTA abdomen and pelvis 04/08/2025, chest CT 07/30/2025 FINDINGS: Left basilar mucous plugging with linear left basilar consolidation redemonstrated. Pulmona ry emphysema. There is no pneumatosis or pneumoperitoneum. Unremarkable spleen and visualized adrenal glands. Several hypodense liver lesions measure up to 2.1 x 2.3 cm on the right hepatic lobe with ir regular margins and peripheral enhancement. These foci are new from prior. The peripherally seen enha ncing focus of the right hepatic lobe is not seen on today's study. There is patency of the hepatic a nd portal veins. No hydronephrosis. Distended urinary bladder. Extensive atherosclerosis of the abdominal aorta and br anch vessels with multifocal stenoses. Pathologic retroperitoneal lymph nodes have progressed from pr ior. Centrally hypodense lesion versus lymph node of the retroperitoneum on image 87 series 3 measure s 1.5 x 0.7 cm. Index pathologic aortocaval lymph node on image 120 series 3 measures 1.5 x 1.0 cm, p reviously 1.2 x 0.7 cm. Centrally hypodense peripherally enhancing focus within the-hepatic distribut ion on image 63 series 3 measures 2.7 x 1.8 cm. No bowel obstruction or bowel wall thickening identified. Trace abdominal pelvic ascites. There is mo derate colonic fecal retention. The appendix is not well visualized. Generalized body wall edema. No destructive bone lesions are seen. IMPRESSION: 1. Pulmonary edema with left basilar mucous plugging and linear left lower lobe consolidation redemon strated. 2. Progressive pathologic lymphadenopathy as above suggestive of metastasis versus a lymphoproliferat brenda disorder. 3. Several hypodense/cystic liver lesions have progressed from the prior studies and may also be meta static. Multifocal small liver abscesses could appear similarly. 4. No acute fracture identified. ACT 112: Negative or not required by law. The above report was generated using voice recognition software. It may contain grammatical, syntax o r spelling errors. Electronically signed by: Frank Adams M.D. 08/25/2025 3:49 PM
--- NOTE | 2025-08-25 16:37 | Ultrasound Report ---
SOFT TISSUES OF THE NECK ULTRASOUND LIMITED INDICATION: Nek pain TECHNIQUE: Limited ultrasound examination of the soft tissues of the neck. COMPARISON: Neck CT 1 day previous FINDINGS: There are multiple pathologically enlarged lymph nodes and hill masses in the lower neck bilaterally. In the right lower neck, there are heterogeneous masses measuring up to 4.2 x 2.1 x 3.4 cm. And in the left lower neck there are smaller lesions measuring up to 1.7 x 1.2 x 1.2 cm. IMPRESSION: Bilateral pathologically enlarged lymph nodes and hill masses are identified, corresponding to the findings of the neck CT evaluation dated August 24, 2025. Electronically signed by Roger Campbell 08-25-2025 4:37 PM
[2025-08-25] MEDS: MULTIVITAMIN TAB PO SCH (17:19)
[2025-08-25] MEDS: AZITHROMYCIN 500 MG/255 ML BAG IV SCH (18:18)
[2025-08-25] MEDS: SODIUM CHLOR 7% 4 ML NEB NEB SCH (20:21)
[2025-08-26 06:01] LABS: Hematocrit (blood only) 36.8 % (37.0-47.0); Hemoglobin 12.5 g/dL (12.0-16.0); Immature Granulocytes # (auto) 0.08 K/uL (0.01-0.20); Immature Granulocytes % (auto) 0.5 %; Mean Corpuscular Hemoglobin 29.1 pg (25.0-34.0); Mean Corpuscular Volume 85.6 fL (80.0-100.0); Platelet Count 315 K/uL (130-400); RDW Standard Deviation 40.5 fL (36.4-46.3); Red Blood Count 4.30 M/uL (4.20-5.40); White Blood Count 16.55 K/ul (4.8-10.8)
[2025-08-26 06:16] LABS: Anion Gap 8.0 (3-11); Blood Urea Nitrogen 12.0 mg/dl (6-23); Calcium 9.3 mg/dl (8.6-10.3); Carbon Dioxide 25.0 mmol/L (21-32); Chloride 110.0 mmol/L (98-107); Creatinine Clr Calc Pharmacy 74.9 ml/min; Glucose 128.0 mg/dl (70-99(Fasting)); Potassium 3.1 mmol/L (3.5-5.1); Sodium 143.0 mmol/L (136-145)
--- NOTE | 2025-08-26 07:20 | Hospitalist Progress Note ---
Date of Service August 26, 2025 Assessment & Plan (1) Pulmonary nodule: (2) Metastatic disease: (3) Severe malnutrition: (4) Mediastinal lymphadenopathy: (5) Alcohol use disorder, severe, dependence: (6) Cigarette smoker: Plan 65-year-old woman with history of pulmonary nodule,severe malnutrition, multiple strokes, ongoing tobacco use, alcohol use who is admitted with productive cough and difficulty swallowing. #Pneumonia - Concern for possible aspiration pneumonia +/- COPD exacerbation in addition to likely malignant process - CT chest & neck w/ emphysema, LLL mass recently increased in size, worsening necrotic mediastinal adenopathy, obstructive material in bronchus intermedius and RLL bronchus, and multiple liver lesions suspicious for metastasis - Sputum culture with light normal trev. MRSA nares negative. - Continue Zosyn + Azithromycin - Guaifenesin, solu-medrol, duonebs, supplemental oxygen for symptom relief #Metastatic disease: - CT chest on admission noted interval worsening of necrotic mediastinal adenopathy and abdominal adenopathy, increase in size and number of liver lesions - US neck noted bilateral pathologically enlarged LNs and hill masses in lower neck - Pulm consulted: EBUS transbronchial needle aspiration was considered, though, due to concern that necrotic LNs may yield a degraded sample, left neck LN biopsy obtained instead. - Pathology pending - Palliative care also consulted, appreciate assistance. Plan of care will likely depend on path results. # Severe protein calorie malnutrition, cachexia: - Severe malnutrition with BMI of 11.5 - Nutrition consulted, appreciate recs - Continue Mirtazapine #Diffuse vascular disease, h/o multiple strokes, h/o left TCAR - DAPT complete. Aspirin held for biopsy, resume in 24-48 hours - Statin therapy previously discontinued for unclear reasons - consider restarting depending on goals of care VTE ppx: Heparin Admission and Anticipated Discharge Date Admission Date: August 24, 2025 Supervising Physician Co-Signing Physician Notes I personally examined the patient and verified north points of history and exam, discussed case, and agree with decision making and plan documented by Dr. Dimas. Patient is a 65-year-old female with past medical history pertinent for CVA, vascular disease, pulmonary nodule, severe malnutrition, alcohol use disorder, and tobacco use disorder presenting with persistent cough, dysphagia, and weakness on admission for pneumonia in setting of presumed metastatic lung cancer. Patient remains on IV Zosyn and azithromycin, she is on room air, reports feeling some improvement. Conversation continues about goals of care, patient reports her Aubrey has found a bed at [facility] which is within close vicinity to her home. Will likely place referral for hospice tomorrow with case management for patient to receive care at senior living. Offered to assist patient in discussing this with her children. Pulmonary obtained ultrasound-guided cervical lymph node biopsy today, pathology is pending. Subjective Patient assessed at bedside along with attending. Patient had a fall this mornin g - feet got caught in her sheets as she was getting out of bed, had head strike but no LOC. CT head obtained and was negative. Otherwise feeling about the same, denies shortness of breath, cough. Patient is having ongoing discussion with family regarding plan/goals of care. Review of Systems Review of Systems: As per HPI. Physical Exam Physical Exam: Constitutional: no acute distress. Cachectic body habitus Resp: no increased work of breathing Neuro: alert, oriented, no focal neurologic deficit appreciated Results & Data Results & Data Vital Signs (Past 12 Hours) Vital Signs Temp Pulse Pulse Resp BP Pulse Ox O2 Del Method 08/26/25 06:46 36.4 C L 85 18 136/77 93 Room Air 08/26/25 03:52 36.5 C 70 18 122/63 96 Room Air 08/25/25 23:21 36.6 C 76 18 114/61 94 Room Air 08/25/25 22:21 80 08/25/25 20:45 Room Air 08/25/25 20:22 78 17 92 Room Air 08/25/25 20:00 36.6 C 87 18 120/69 95 Room Air Resident Activity Tracking Resident Involvement: Resident Care Provided Care Provided: Adult Hospital Medicine
--- NOTE | 2025-08-26 08:48 | CT Scan Report ---
CT head/brain wo con CLINICAL HISTORY: 65 years-old Female with fall w/ head trauma. Acute head trauma status post fall TECHNIQUE: Multiple axial CT images of the head were obtained without contrast. A dose lowering tech nique was utilized adhering to the principles of ALARA. CT DOSE: 625.8 mGy.cm COMPARISON: 07/30/2025 FINDINGS: No acute intracranial hemorrhage, midline shift, intracranial mass, hydrocephalus, territorial ischem ia or abnormal extra-axial collection. Involutional changes with chronic microvascular ischemic disea se. Numerous small chronic infarcts redemonstrated, largest within the right caudate nuclear head. The calvarium is intact. The paranasal sinuses, mastoid air cells, and middle ear cavities are clear . IMPRESSION: No acute intracranial abnormality. ACT 112: Negative or not required by law. The above report was generated using voice recognition software. It may contain grammatical, syntax o r spelling errors. Electronically signed by: Frank Adams M.D. 08/26/2025 8:46 AM
[2025-08-26] MEDS: POTASSIUM CHLORIDE / WTR 10 MEQ/100 ML PLCT IV SCH (09:38)
--- NOTE | 2025-08-26 10:18 | Communication Note ---
Date of Service: August 26, 2025 Subjective: Received report from nursing around 06:50, through overnight resident physician, that patient had fallen and hit her head. Nursing reported patient was not confused, did not appear injured, and had stable vitals. Upon going to see the patient, I found her resting comfortably in bed. A new IV line was being set, as her initial one was dislodged during her fall. Patient explained that she was getting out of bed to the bathroom, and she did hit the call button but did not wait for help because she is normally able to ambulate independently. She believes her feet became tangled in the sheets, and she fell out of the bed. She recalled hitting the top of her head during her fall, but no other location. She does not feel her knees gave out and denies any prodromal symptoms. Denies any new headache, change in vision, pain, shortness of breath, or paresthesias. Objective: AFVSS. Patient is alert and oriented to person, place, and date. Speech is clear and coherent. No deformity palpable on scalp, and no tenderness to palpation. Lungs clear and breathing unlabored with symmetrical chest rise. Heart RRR. No bruising visible elsewhere on body, full ROM, and no joint deformity or tenderness evident. Exam otherwise unchanged from yesterday. A/P: Incident consistent with mechanical fall. Patient with significant and sudden weight loss is unaccustomed to her frailty and need for support, and fell while attempting to get out of bed herself. She was assessed immediately after the incident and exhibited no confusion, reported no pain, and had no visible injuries. Patient did report hitting her head; Stat CT head w/o was ordered and showed no acute abnormality. No indication for imaging of other areas at this time. Patient will continue to be monitored throughout the day for any change in mentation or developing pain.
[2025-08-26] MEDS: NICOTINE 7 MG/24 HR TDSY TD SCH (11:43)
--- NOTE | 2025-08-26 12:37 | Ultrasound Report ---
ULTRASOUND-GUIDED LEFT NECK LESION FNA CLINICAL HISTORY: 1.3 cm left neck lesion; tobacco abuse/weight loss PROCEDURE: Procedure and risks were complained. Informed consent was obtained. A final timeout was co mpleted. The neck was prepped and draped in sterile fashion. 1% lidocaine was utilized for skin anest hesia. Utilizing ultrasound guidance, a 25-gauge needle was advanced into the 1.3 cm left neck lesion. Ultra sound images were obtained. 3 aspirates were obtained and given to the pathologist for review. The franci coradont tolerated the procedure well. IMPRESSION: Left neck lesion FNA as detailed above. Performed, dictated, and signed by Júnior Hughes PA-C; to be co-signed by Dr. Meng Fleming. Electronically signed by: Meng Fleming M.D. 08/26/2025 3:25 PM
--- NOTE | 2025-08-26 13:05 | Pulmonology Progress Note ---
Date of Service August 26, 2025 Assessment & Plan (1) Metastatic disease: Plan: Patient appears to have diffusely metastatic disease possibly lung cancer in origin (possible small cell lung cancer) versus invasive infective process. Patient underwent ultrasound-guided left neck lymph node biopsy today. Pathology results pending Given her poor performance status and evidence of metastatic disease, I have consulted palliative care medicine and appreciate their input. (2) Severe malnutrition: Plan: Recommend nutrition consult (3) Declining performance status: Plan: Palliative care medicine consult as above. Plan Pulmonary will sign off. Please call with questions. Please follow-up with the pathology results and please get oncology involved once the results are available. I personally spent 25 minutes on the date of service in activities related to this patient's encounter, including 15 minutes of counseling with patient regarding treatment plan and 10 minutes of clinical review of lab results and documentation. I did credit support counselor the patient regarding their diagnosis and treatment plan and they expressed understanding. This note was dictated using voice recognition software and may include grammatical errors, extra words, word substitutions and other inaccuracies due to errors in the voice recognition software and differences in speech patterns. Admission and Anticipated Discharge Date Admission Date: August 24, 2025 Subjective Patient underwent left neck ultrasound-guided lymph node biopsy today. She denies any new complaints. She denies any shortness of breath, chest pain or significant cough. Afebrile. Review of Systems Review of Systems: All systems reviewed & are unremarkable except as noted in HPI & below Physical Exam Constitutional: Cachectic and frail Neck: trachea midline, no thyromegaly Respiratory: normal respiratory effort, lungs clear to auscultation Cardiovascular: RRR, no murmur, no edema Gastrointestinal (Abdomen): normal bowel sounds, soft, nontender, no hepatosplenomegaly Musculoskeletal: Extremities: extremities normal to inspection Skin: no rashes, warm and dry Neurologic: Nonfocal exam Lymphatic: no cervical lymphadenopathy Results & Data Results & Data Vital Signs (Past 12 Hours) Vital Signs Temp Pulse Pulse Resp BP Pulse Ox O2 Del Method 08/26/25 12:21 36.3 C L 73 16 123/63 93 Room Air 08/26/25 07:47 36.6 C 73 18 148/71 H 97 Room Air 08/26/25 07:46 72 16 96 Room Air 08/26/25 07:44 71 08/26/25 06:46 36.4 C L 85 18 136/77 93 Room Air 08/26/25 03:52 36.5 C 70 18 122/63 96 Room Air PG Care Time/CCT Total # of Minutes Spent Total Time Spent with Patient: Total time spent is greater than 50% in coordination of care (as documented) at patient's floor/unit and/or counseling patient: Coding Level of Care Code 23626 SUB INP/OBS CARE 10/11MIN Diagnoses Metastatic disease C79.9 Severe malnutrition E43 Declining performance status R53.81
--- NOTE | 2025-08-26 13:49 | Communication Note ---
Date of Service: August 26, 2025 Brief Note Chart reviewed. pt had a fall on the overnight, hit front of head but no acute symptoms. Vital were stable at time of assessment post fall. Palliative med attempted to see pt who was off unit for biopsy We will reattempt tomorrow. No charge submitted, pt not seen. Thank you for allowing us to participate in the ongoing care of this patient. Please page with any additional concerns. Cris Serrano DNP Director, Palliative Medicine
[2025-08-26] MEDS: MoRPHine SULFATE 2 MG/ML CARP IV PRN (19:43)
--- NOTE | 2025-08-27 03:55 | Billing Data ---
Date of Service August 27, 2025 Coding Level of Care Code 18833 INT INP/OBS CARE
[2025-08-27 07:05] LABS: Hematocrit (blood only) 36.3 % (37.0-47.0); Hemoglobin 12.0 g/dL (12.0-16.0); Mean Corpuscular Hemoglobin 29.1 pg (25.0-34.0); Mean Corpuscular Volume 88.1 fL (80.0-100.0); Platelet Count 349 K/uL (130-400); RDW Standard Deviation 42.5 fL (36.4-46.3); Red Blood Count 4.12 M/uL (4.20-5.40); White Blood Count 16.65 K/ul (4.8-10.8)
[2025-08-27 08:00] LABS: Anion Gap 7.0 (3-11); Blood Urea Nitrogen 10.0 mg/dl (6-23); Calcium 8.9 mg/dl (8.6-10.3); Carbon Dioxide 27.0 mmol/L (21-32); Chloride 110.0 mmol/L (98-107); Creatinine Clr Calc Pharmacy 90.6 ml/min; Glucose 106.0 mg/dl (70-99(Fasting)); Potassium 3.1 mmol/L (3.5-5.1); Sodium 144.0 mmol/L (136-145)
--- NOTE | 2025-08-27 08:03 | Hospitalist Progress Note ---
Date of Service August 27, 2025 Assessment & Plan (1) Pulmonary nodule: (2) Metastatic disease: (3) Severe malnutrition: (4) Mediastinal lymphadenopathy: (5) Alcohol use disorder, severe, dependence: (6) Cigarette smoker: Plan 65-year-old woman with history of pulmonary nodule,severe malnutrition, multiple strokes, ongoing tobacco use, alcohol use who is admitted with productive cough and difficulty swallowing. Lymph node biopsy done 08/26; path results pending, but unlikely to meaningfully change care plan. Currently medically stable and appropriate for discharge to [facility]. #Pneumonia - Concern for possible aspiration pneumonia +/- COPD exacerbation in addition to likely malignant process - CT chest & neck w/ emphysema, LLL mass recently increased in size, worsening necrotic mediastinal adenopathy, obstructive material in bronchus intermedius and RLL bronchus, and multiple liver lesions suspicious for metastasis - Sputum culture with light normal trev. MRSA nares negative. - Continue Zosyn + Azithromycin - Guaifenesin, solu-medrol, duonebs, supplemental oxygen for symptom relief #Metastatic disease: - CT chest on admission noted interval worsening of necrotic mediastinal adenopathy and abdominal adenopathy, increase in size and number of liver lesions - US neck noted bilateral pathologically enlarged LNs and hill masses in lower neck - Pulm consulted: EBUS transbronchial needle aspiration was considered, though, due to concern that necrotic LNs may yield a degraded sample, left neck LN biopsy obtained instead. - Pathology pending - Palliative care also consulted, appreciate assistance. # Severe protein calorie malnutrition, cachexia: - Severe malnutrition with BMI of 11.5 - Nutrition consulted, appreciate recs - Continue Mirtazapine - K+ 3.1 - repleted, recheck with AM labs - Supplementing Vit B1 (200mg IV daily), Vit B12 (1000mcg IM daily), and Vit D (125 mcg daily) #Diffuse vascular disease, h/o multiple strokes, h/o left TCAR - DAPT complete. Aspirin held for biopsy, resume in 24-48 hours - Statin therapy previously discontinued for unclear reasons - consider restarting depending on goals of care VTE ppx: Heparin Admission and Anticipated Discharge Date Admission Date: August 24, 2025 Supervising Physician Co-Signing Physician Notes I personally examined the patient and verified north points of history and exam, discussed case, and agree with decision making and plan documented by Dr. Dimas. Patient is a 65-year-old female with past medical history pertinent for CVA, vascular disease, pulmonary nodule, severe malnutrition, alcohol use disorder, and tobacco use disorder presenting with persistent cough, dysphagia, and weakness on admission for pneumonia in setting of presumed metastatic lung cancer. Transition to PO Augmentin. Patient will be discharged tomorrow to [facility], referral for [facility] been placed. Pathology for pathologic cervical lymph node pending. Subjective NAEO. Patient seen and examined at bedside. Reports feeling well this morning. Has not tried getting out of bed alone, but does feel stronger and is breathing normally. Did well with breakfast. Denies BUTTS, dizziness, SOB, CP, abd pain, n/v, body aches, numbness/tingling. Expresses awareness and acceptance of plan to d/c to [facility] Review of Systems Review of Systems: As per HPI. Physical Exam Physical Exam: Gen: Well-developed, cachectic, soft/weak voice, NAD HEENT: NCAT, no tenderness on top of head, normal conjunctiva, MMM, trachea midline CV: RRR, no m/r/g, S1/S2 normal, no LE edema Resp: CTAB, symmetrical chest rise, breathing non-labored Abd: Soft, NT/ND, +BS MSK: Full ROM, no joint deformity or tenderness evident Skin: Warm, dry, well-perfused, no bruising or injury noted Neuro: AOx3, CN II-XII grossly intact, no focal deficits Psych: Speech pace normal, clear and coherent, euthymic affect Results & Data Results & Data Vital Signs (Past 12 Hours) Vital Signs Temp Pulse Pulse Resp BP BP Pulse Ox 08/27/25 07:46 36.6 C 80 16 152/66 H 95 08/27/25 07:10 80 16 95 08/27/25 04:21 36.6 C 83 20 125/67 92 08/26/25 23:56 36.6 C 90 20 124/65 91 08/26/25 21:31 96 H 08/26/25 21:30 O2 Del Method 08/27/25 07:46 Room Air 08/27/25 07:10 Room Air 08/27/25 04:21 Room Air 08/26/25 23:56 Room Air 08/26/25 21:31 08/26/25 21:30 Room Air Resident Activity Tracking Resident Involvement: Resident Care Provided Care Provided: Adult Hospital Medicine
[2025-08-27] MEDS: POTASSIUM CHLORIDE / WTR 10 MEQ/100 ML PLCT IV SCH (08:56)
[2025-08-27] MEDS: CYANOCOBALAMIN 1000 MCG/ML VIAL IM SCH (09:23)
[2025-08-27] MEDS: CHOLECALCIFEROL 125 MCG (5,000 UNITS) TAB PO SCH (09:23)
[2025-08-27] MEDS: REMOVE NICODERM PATCH SCH (09:42)
[2025-08-27] MEDS: THIAMINE HCL 200 MG in SODIUM CHLORIDE 0.9% 50 ML IV SCH (10:01)
[2025-08-28 03:47] VITALS: TEMP 97.7
[2025-08-28] MEDS: ACETAMINOPHEN 325 MG TAB PO PRN (07:49)
[2025-08-28] MEDS: predniSONE 20 MG TAB PO SCH (09:46)
--- NOTE | 2025-08-28 09:56 | Discharge Summary ---
Date of Service August 28, 2025 Admission HPI Per Admitting Provider 65 yrs old female presents to the ED due to persistent cough and difficulty swallowing. PMH of multiple strokes, ongoing tobacco use, alcohol use, severe malnutrition and left lower lobe lung mass. After the hospital discharge on 08/03, she started having persistent intractable cough with productive white sputum. She progressed to having difficulty swallowing to both solid and liquid foods. Last night, she started having choking and gasping for air like episodes and then they decided to visit the ED. mentions she also lost her voice since yesterday and haven't eaten anything other than some fluids. She has lost 60 pounds since 12 months. She is accompanied by her today who provided some history as the patient has difficulty talking on her own.She has had a known lower lobe pulmonary nodule identified on CT scans going back for several years however on most recent CT scan the nodule demonstrated to be increased in size. No H/o shortness of breath,fever, prior history of personal malignancy and no family history of lung cancer. Principal Diagnosis metastatic lung cancer Discharge Exam Gen: Well-developed, cachectic, soft/weak voice, NAD HEENT: NCAT, no tenderness on top of head, normal conjunctiva, MMM, trachea midline CV: RRR, no m/r/g, S1/S2 normal Resp: CTAB, symmetrical chest rise, breathing non-labored Abd: Soft, NT/ND, +BS MSK: Full ROM, no joint deformity or tenderness evident Skin: Warm, dry, well-perfused, no bruising or injury noted Neuro: AOx3, CN II-XII grossly intact, no focal deficits Psych: Speech pace normal, clear and coherent, euthymic affect Discharge Data Allergies Allergy/AdvReac Type Severity Reaction Status Date / Time Sulfa (Sulfonamide Allergy Intermediate HIVES Verified 08/24/25 17:41 Antibiotics) Consultations 08/24/25 19:12 ED Decision to Admit Stat 08/24/25 21:04 Consult Pulmonology Routine 08/25/25 11:41 Consult Palliative Care Routine Ordered Studies 08/24/25 14:33 CT neck soft tissues [CT soft tissue neck w con] Stat 08/24/25 14:39 CT chest diagnostic w con Stat 08/25/25 12:56 CT Abd and Pelvis [CT abd pelvis IV con only] Urgent US Neck [US soft tissue head and neck] Urgent 08/26/25 IR FNA w/img 1st lesion US Urgent 08/26/25 06:[address] [CT head/brain wo con] Stat 08/31/25 IR biopsy liver US Routine Hospital Course (1) Pulmonary nodule: (2) Metastatic disease: (3) Severe malnutrition: (4) Mediastinal lymphadenopathy: (5) Alcohol use disorder, severe, dependence: (6) Cigarette smoker: Plan 65-year-old woman with history of pulmonary nodule,severe malnutrition, multiple strokes, ongoing tobacco use, alcohol use who is admitted with productive cough and difficulty swallowing. Lymph node biopsy done 08/26, with pathology results c/w metastatic squamous cell carcinoma. When medically stable, she was discharged to [facility]. #Pneumonia - Concern for aspiration pneumonia vs pneumonitis +/- COPD exacerbation in addition to likely malignant process - CT chest & neck w/ emphysema, LLL mass recently increased in size, worsening necrotic mediastinal adenopathy, obstructive material in bronchus intermedius and RLL bronchus, and multiple liver lesions suspicious for metastasis - Sputum culture with light normal trev. MRSA nares negative. - Given Zosyn + Azithromycin for possible aspiration pneumonia during admission. Guaifenesin, solu-medrol, duonebs, and supplemental oxygen available for symptom relief. - She was given 40mg of prednisone during her stay and will finish a short steroid burst with 40mg pred daily for 4 more days - Will finish abx course with 2 more days of Augmentin 875mg BID #Metastatic disease: - CT chest on admission noted interval worsening of necrotic mediastinal adenopathy and abdominal adenopathy, increase in size and number of liver lesions - US neck noted bilateral pathologically enlarged LNs and hill masses in lower neck - Pulm consulted: EBUS transbronchial needle aspiration was considered, though, due to concern that necrotic LNs may yield a degraded sample, left neck LN biopsy obtained instead. Pathology results were consistent with metastatic squamous cell carcinoma - Palliative care was consulted during her stay and after extensive discussion with patient, family, and full care team, decision was made to discharge to skilled facility with hospice care # Severe protein calorie malnutrition, cachexia: - Severe malnutrition with BMI of 11.5 - Nutrition was consulted during her stay. Electrolytes were repleted as needed, and were within normal range by discharge - Continue Mirtazapine - Continue vitamin supplementation with Vit B12 (1000mcg IM daily), Vit D (31270 IU weekly for 8 wks) #Diffuse vascular disease, h/o multiple strokes, h/o left TCAR - DAPT complete. 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 Initial tests and imaging were concerning for a long- known lung nodule that has grown in size and liver lesions consistent with metastatic disease. You were treated with antibiotics, steroids, and supportive care to improve your breathing. We also repleted your potassium and several vitamins. You were seen by our pulmonary team, who did some imaging to identify a safe location to biopsy; pathology results are still pending on the lymph node they sampled. After extensive discussion with your family, primary team, and palliative medicine about prognosis and treatment options, it was determined that hospice care is appropriate for you but is not feasible at home. It was decided to discharge you to [facility] [place] care. As you were given high-dose IV steroids during your stay, you will need a steroid taper. We are sending a prescription of prednisone with you. Please take 40mg per day (2 x 20mg tablets) for 5 days. [facility] will manage any medical equipment and medications you require after discharge, including any necessary pain medications, to ensure you are comfortable and meeting your personal goals of care. Your medication list has been reviewed and reconciled, and an updated list is included with your discharge paperwork. Take your medications as instructed; do not skip a dose. Make sure all of your doctors know every medicine you are taking (including [id number] medicines, vitamins, and supplements). We recommend keeping your outpatient team apprised of this recent admission and relevant changes in your care. You may call [phone] and ask to leave a message for Dr. Dimas if you have any major questions about your hospitalization. Thank you for allowing us to participate in your care. Pending Studies at Discharge: No Stand-Alone Forms: [facility], Smoking Cessation Skilled Items Patient informed of condition?: Yes DNR: Yes Discharge Level of Care: Skilled Communicable Disease: No Discharge Prognosis: Deteriorating Lines: None Urinary Catheter: No Medications and DC Order Prescriptions: New cyanocobalamin (vitamin B-12) 1,000 mcg/mL Solution 1,000 mcg IM Q7D 3 Days Qty: 3 0RF nicotine 7 mg/24 hr Patch 24 Hour 1 patch transdermal QAM Qty: 14 0RF multivitamin with folic acid [Daily-Jenn (with folic acid)] 400 mcg Tablet 1 tab PO QAM 30 Days Qty: 30 2RF prednisone 20 mg tablet 40 mg PO DAILY 4 Days Qty: 8 0RF amoxicillin-pot clavulanate 875-125 mg tablet 1 tab PO BID 2 Days Qty: 4 0RF Continued aspirin 81 mg Tablet,Delayed Release (Dr/Ec) 81 mg PO DAILY Qty: 30 0RF mirtazapine 15 mg Tablet 15 mg PO HS Qty: 30 0RF cholecalciferol (vitamin D3) 1,250 mcg (50,000 unit) capsule 50,000 unit PO WK 56 Days Qty: 7 0RF Discontinued cephalexin 500 mg Capsule 500 mg PO BID Qty: 9 0RF Patient Comments: 08/24- per , pt still has some of the medication left atorvastatin 0 mg PO DAILY Patient Comments: 08/24- per spouse, pt takes medication but isnt sure of the strength. They think 5mg but arent 100% sure. No fill history available. Discharge Orders: Discharge Order (Routine); Ordered 08/28/25 Ordered By: Raheem Dimas Admission Data Admit Date/Time: 08/24/25 21:04 Attending Provider: Rosalio Alcala Admit Provider: Ruperto Andersen Primary Care Provider: Yeny Flores Other Providers: Mani Allen; Ruperto Andersen; Dimple Ricks; Fogelman,Ashly A.; [facility] Other Interventions: Discharge Summary Assessment (RN) Last Done: 08/28/25 15:07 Supervising Physician Co-Signing Physician Notes Attending attestation Pt seen and examined in concert with Dr. Dimas. In agreement with the documented findings as noted in the resident documentation with any exceptions or additions as noted here. Resting comfortably in bed without complaint. VS as noted. On examination, S1/S2 nl RRR no MCG. CTAB. Abd NT/ND BS+ve PNA, aspiration vs. aspiration pneumonitis - 3 days of abx therapy, to complete 5 day course w/ augmentin. Complete 5 day steroid burst. Metastatic dsiease - pulmonology, palliative care consult - s/p bx pending pathology. Will need outpatient follow up with care team. Severe protein calorie malnutrition, cachexia - mitrazapine, continue vitamin supplementation. Low threshold for outpatient nutrition consultation h/o CVA, vascular disease - resume ASA on discharge. Would warrant d/w primary care team re: statin therapy Else see resident documentation as noted. Total attending physician time spent with this patient's care on the day of discharge: 40 minutes. Resident Activity Tracking Resident Involvement: Resident Care Provided Care Provided: Adult Hospital Medicine
[2025-08-28 11:34] VITALS: BP 105/56
--- NOTE | 2025-08-28 13:15 | Communication Note ---
Date of Service: August 28, 2025 Pall Med Brief Note Leisa is dc to [facility] today with plan for comfort care and hospice. NO acute complaints. 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 Advised pall med is here if OP needs arise. Thank you for allowing us to participate in the ongoing care of this patient. Please page with any additional concerns. Cris Serrano DNP Director, Palliative Medicine
[2025-08-28 14:19] VITALS: RESP 20; O2SAT 90
[2025-08-28 15:09] VITALS: PULSE 88
--- NOTE | 2025-08-29 07:17 | Electrocardiogram Report ---
Test Reason : Blood Pressure : */* mmHG Vent. Rate : 82 BPM Atrial Rate : 82 BPM P-R Int : 92 ms QRS Dur : 88 ms QT Int : 388 ms P-R-T Axes : 77 76 73 degrees QTcB Int : 453 ms Sinus rhythm with short AL Otherwise normal ECG When compared with ECG of 30-Jul-2025 12:23, No significant change was found Confirmed by Jeremy Siddiqui ([id number]) on 08/29/2025 7:16:36 AM Referred By: REFERRED SELF Confirmed By: Jeremy Siddiqui
== END 2025-08-28 15:13 | disposition hospice, home (50) | DRG 166 ==
LOC: ED 14:14 → SUATTDRO 21:04 → 2W 21:04